=== PATIENT | female | born 1940 | race Caucasian/White ===

== ENCOUNTER → 2022-07-06 15:04 | Outpatient (CLI) | payer MEDICARE, SELFPAY ==
--- NOTE | ~2022-07-06 | US_ITS ---
US thyroid INDICATION: Thyroid nodules TECHNIQUE: Real-time sonographic images of the thyroid gland were obtained. COMPARISON: No prior studies for comparison. FINDINGS: The right thyroid lobe measures 4 x 1.8 x 1.6 cm. The left thyroid lobe measures 4.2 x 1.7 x 1.2 cm. There is normal echotexture and echogenicity throughout the thyroid gland. In the right lo be there is a 9 x 8 x 7 mm solid hypoechoic mass which is wider than tall, smoothly marginated with p unctate echogenic foci, TR 5. In the left lobe there is a 4 x 3 x 3 mm spongiform hypoechoic mass whi ch is wider than tall, smooth margins and no internal echogenic foci TR 2, likely benign. Normal vasc ular flow is present. IMPRESSION: 1. Right thyroid nodule measuring 9 mm maximum dimension, TR 5. This does not meet sonographic crite joey for biopsy. Follow-up ultrasound in 12 months recommended. Reviewed, dictated and finalized at location B. IMPRESSION: 1. Right thyroid nodule measuring 9 mm maximum dimension, TR 5. This does not meet sonographic criteria for biopsy. Follow-up ultrasound in 12 months recomme nded.
== END ==
PROVIDERS: PCP Family Medicine; Visit Provider Nurse Practitioner
DX: E04.1 Nontoxic single thyroid nodule (principal)
CPT/HCPCS: 76536

== ENCOUNTER 2025-02-24 22:08 | Emergency (ER) | payer MEDICARE, SELFPAY ==
--- NOTE | ~2025-02-24 | CT_ITS ---
CTA chest PE protocol Ordering provider: Sera Rivera History: 84 years Female with . L chest pain with RICARDO . Comparison: None. Technique: CT angiogram chest was performed following timed intravenous injection of contrast. Thin s lice axial images and reformatted coronal images were obtained. Three dimensional reformatted images of the chest were also obtained using a [employer] workstation. . Automated exposure control and iterati ve reconstruction technique were employed. The dose-length product was 150.53 mGy-cm. Findings: PULMONARY ARTERIES: No pulmonary embolus. VISUALIZED THORACIC INLET: Normal. MEDIASTINUM: Aorta/coronary arteries: Mild atheromatous disease. Heart/other: The heart is not enlarged. Lymph nodes: No mediastinal or hilar adenopathy. LUNGS: 3 marked seen in the right upper lobe suggestive of post infection changes. Atelectasis seen in the l eft upper lobe anteriorly. No pulmonary nodules or masses. No effusions. No pneumothorax. Underlying emphysematous changes. VISUALIZED UPPER ABDOMEN: Fat infiltration of the liver. Hypodensity in the left kidney most likely s mall cyst. Otherwise, the visualized upper abdomen is normal. MUSCULOSKELETAL: Soft tissues: The superficial soft tissues are normal. Bones: Age appropriate degenerative changes of the spine. Severe kyphosis. IMPRESSION: 1. No pulmonary embolism. 2. Tree-in-bud appearance with nodularity in the right upper lobe which may indicate focal pneumonia . Follow-up advised. 3. Emphysematous changes of the lungs. 0 Reviewed, dictated and finalized at location A. IMPRESSION: 1. No pulmonary embolism. 2. Tree-in-bud appearance with nodularity in the right upper lobe which may in dicate focal pneumonia. Follow-up advised. 3. Emphysematous changes of the lungs. 0
--- NOTE | ~2025-02-24 | XR_ITS ---
XR chest 1V Ordering provider: Sera Rivera MD History: 84 years Female with . CHEST PAIN HTN . Comparison: None. FINDINGS: MEDIASTINUM: The cardiac silhouette is not enlarged. LUNGS: No infiltrates, effusions or pneumothorax. Underlying emphysematous changes. OTHER: No free air under the diaphragm. Severe osteoarthritic changes of both shoulders. IMPRESSION: No acute cardiopulmonary pathology. Reviewed, dictated and finalized at location A.
--- OUTSIDE RECORDS SUMMARY | 2025-02-24 22:11 | XMS_ITS | Clinical Summary ---
Author Organization [facility] Address [address] [place] [address] Phone Care Team Providers Care [employer] Analyst Name Role Phone Unavailable Primary Care Provider Unavailabl e Allergies No known active allergies Medications metoprolol tartrate (LOPRESSOR) 25 mg tablet Take 25 mg by mouth 2 times daily. Active mirtazapine (REMERON) 7.5 mg tablet Take 1 Tablet (7.5 mg) by mouth daily at bedtime. 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 Encounters Date Type Department Care Team Description 02/21/2025 8:57 AM CDT - 02/21/2025 11:59 PM CDT Hospital Encounter [facility] - [facility] [address] [place] [address] Mine Aguirre ANP [place], Deborah, RN Discharge Disposition: Home or Self Care 02/19/2025 External Device Data STL ABSTRACTION Provider, Abstract 02/19/2025 External Device Data STL ABSTRACTION Provider, Abstract 02/05/2025 9:15 AM CDT Office Visit [facility] Trauma and General Surgery [address] [id number] Jose Alberto Minor DO Abdominal fistula (Primary Dx) 02/05/2025 External Device Data STL ABSTRACTION Provider, Abstract 01/29/2025 8:11 AM CDT - 01/29/2025 11:59 PM CDT Hospital Encounter [facility] - [address] [address] [place] [address] Mine Aguirre, Danyelle Villar, accessioner Disposition: Home or Self Care 01/15/2025 8:51 AM CDT - 01/15/2025 11:59 PM CDT Hospital Encounter [facility] - [facility] [address] [place] [address] Mine Aguirre, Heather Clement RN Pingel, Carolynn, RN Discharge Disposition: Home or Self Care 01/15/2025 External Device Data STL ABSTRACTION Provider, Abstract 01/15/2025 External Device Data STL ABSTRACTION Provider, Abstract 01/08/2025 External Device Data STL ABSTRACTION Provider, Abstract 12/27/2024 9:00 AM CDT Office Visit [facility] Trauma and General Surgery [address] [address] Jose Alberto Minor, Colocutaneous fistula (Primary Dx) 12/19/2024 External Device Data STL ABSTRACTION Provider, Abstract 12/18/2024 External Device Data STL ABSTRACTION Provider, Abstract 12/17/2024 External Device Data STL ABSTRACTION Provider, Abstract 12/15/2024 External Device Data STL ABSTRACTION Provider, Abstract 12/15/2024 External Device Data STL ABSTRACTION Provider, Abstract 12/12/2024 6:47 AM INTERNAL COMMUNICATIONS MANAGER - 12/15/2024 3:03 PM INTERNAL COMMUNICATIONS MANAGER Hospital Encounter [facility] Trauma and Surgery [address] [place] [address] Zulma Higuera MD Keech, Rachel C, DO Colocutaneous fistula Discharge Disposition: Home Health Care Svc from Last 3 Months Family History Medical History Relation Name Comments Cancer Father Alzheimer's Disease Mother Alzheimer's Disease Sister Relation Name Status Comments Father Mother Sister Social History Tobacco Use Types Packs/Day Years Used Date Smoking Tobacco: Never Smokeless Tobacco: Never Tobacco Cessation:Counseling Given: Not Answered Alcohol Use Standard Drinks/Week Comments Not Currently 0 (1 standard drink = 0.6 oz pur e alcohol) Feeling Safe Answer Date Recorded Are you in a relationship wi th someone who hurts you emotionally and/or physically? No 01/15/2025 Comments Unknown Sex and Gender Information Value Date Recorded Sex Assigned at Not on file Legal Sex Female 4:23 AM INTERNAL COMMUNICATIONS MANAGER Gender Identity Not on file Sexual Orientation Not on file Last Filed Vital Signs Vital Sign Reading Time Taken Comments Blood Pressure 137/71 02/21/2025 9:00 AM CDT Pulse 65 02/21/2025 9:00 AM CDT Temperature 36.4 C (97.5 F) 02/21/2025 9:00 AM CDT Respiratory Rate 18 02/21/2025 9:00 AM CDT Oxygen Saturation 94% 02/05/2025 8:52 AM CDT Inhaled Oxygen Concentration - - Weight 51.6 kg (113 lb 12.8 oz) 02/21/2025 9:00 AM CDT Height 149.9 cm (4' 11 ) 02/05/2025 8:52 AM CDT Body Mass Index 22.98 02/05/2025 8:52 AM CDT Plan of Treatment Upcoming Encounters Date Type Department Care Team (Late st Contact Info) Description 03/14/2025 2:15 PM CDT Appointment [facility] - [facility] [address] [place] [address] Mine Aguirre, JOLANTA [address] [place] [phone] Health Maintenance Due Date Last Done Comments DTAP/TDAP/TD VACCINES (1 - Tdap) 1958 ZOSTER VACCINE (1 of 2) 1989 OSTEOPOROSIS SCREENING 2004 PNEUMOCOCCAL VACCINE 50+ YEA RS (2 of 2 - PCV) 02/15/2013 02/16/2012 RSV VACCINE (60+ or ) (1 - 1-dose 75+ series) 2014 INFLUENZA VACCINE Completed 10/23/2024, 07/27/2022 Procedures Procedure Name Priority Date/Time Associated Diagnosis Comments PHOSPHORUS Routine 12/15/2024 4:33 AM INTERNAL COMMUNICATIONS MANAGER MAGNESIUM LEVEL Routine 12/15/2024 4:33 AM INTERNAL COMMUNICATIONS MANAGER BASIC METABOLIC PANEL Routine 12/15/2024 4:33 AM INTERNAL COMMUNICATIONS MANAGER CBC WITHOUT DIFFERENTIAL Routine 12/15/2024 4:33 AM INTERNAL COMMUNICATIONS MANAGER NM MYOCARD PERF IMAG SPECT MULT Routine 12/14/2024 3:09 PM INTERNAL COMMUNICATIONS MANAGER HM EJECTION FRACTION Routine 12/14/2024 3:09 PM INTERNAL COMMUNICATIONS MANAGER NM PHARMACOLOGICAL STRESS TEST Stat 12/14/2024 12:42 PM INTERNAL COMMUNICATIONS MANAGER PHOSPHORUS Routine 12/14/2024 6:55 AM INTERNAL COMMUNICATIONS MANAGER MAGNESIUM LEVEL Routine 12/14/2024 6:55 AM INTERNAL COMMUNICATIONS MANAGER BASIC METABOLIC PANEL Routine 12/14/2024 6:55 AM INTERNAL COMMUNICATIONS MANAGER CBC WITHOUT DIFFERENTIAL Routine 12/14/2024 6:55 AM INTERNAL COMMUNICATIONS MANAGER POC GLUCOSE Routine 12/14/2024 4:50 AM INTERNAL COMMUNICATIONS MANAGER PHOSPHORUS Routine 12/13/2024 5:33 AM INTERNAL COMMUNICATIONS MANAGER MAGNESIUM LEVEL Routine 12/13/2024 5:33 AM INTERNAL COMMUNICATIONS MANAGER BASIC METABOLIC PANEL Routine 12/13/2024 5:33 AM INTERNAL COMMUNICATIONS MANAGER CBC WITHOUT DIFFERENTIAL Routine 12/13/2024 5:33 AM INTERNAL COMMUNICATIONS MANAGER C. DIFFICILE DETECTION Routine 12:58 AM INTERNAL COMMUNICATIONS MANAGER URINALYSIS W/REFLEX MICROSCOPIC Stat 12/13/2024 12:56 AM INTERNAL COMMUNICATIONS MANAGER CALCIUM IONIZED Stat 12/12/2024 6:30 PM INTERNAL COMMUNICATIONS MANAGER CT ABDOMEN PELVIS W CONTRAST Stat 12/12/2024 9:40 AM INTERNAL COMMUNICATIONS MANAGER EXTRA TUBE (URINE CONTAINER) Stat 12/12/2024 7:52 AM INTERNAL COMMUNICATIONS MANAGER EXTRA TUBE Stat 12/12/2024 7:52 AM INTERNAL COMMUNICATIONS MANAGER VERIFICATION BLOOD GROUP Stat 12/12/2024 7:30 AM INTERNAL COMMUNICATIONS MANAGER Encounter for blood typing TYPE AND SCREEN Stat 12/12/2024 7:16 AM INTERNAL COMMUNICATIONS MANAGER C-REACTIVE PROTEIN Stat 12/12/2024 7: 16 AM INTERNAL COMMUNICATIONS MANAGER COMPREHENSIVE METABOLIC PANEL Stat 12/12/2024 7:16 AM INTERNAL COMMUNICATIONS MANAGER CBC WITH DIFFERENTIAL Stat 12/12/2024 7:16 AM INTERNAL COMMUNICATIONS MANAGER CRITICAL CARE Routine 12/12/2024 6:47 AM INTERNAL COMMUNICATIONS MANAGER from Last 3 Months Results * (ABNORMAL) CBC WITHOUT DIFFERENTIAL (12/15/2024 4:33 AM INTERNAL COMMUNICATIONS MANAGER) Only the most recent of3 resultswithin the time period is included. WBC 8.4 4.0 - 9.8 K/uL 12/15/2024 5:39 AM INTERNAL COMMUNICATIONS MANAGER [employer] [facility] RBC 3.78(L) 3.90 - 4.90 M/uL 12/15/2024 5:39 AM INTERNAL COMMUNICATIONS MANAGER [employer] [facility] HEMOGLOBIN 11.4(L) 11.8 - 14.8 g/dL 12/15/2024 5:39 AM INTERNAL COMMUNICATIONS MANAGER [employer] [facility] HEMATOCRIT 37.0 35.5 - 44.0 % 12/15/2024 5:39 AM INTERNAL COMMUNICATIONS MANAGER [employer] [facility] MCV 97.9 82.0 - 99.0 fL 12/15/2024 5:39 AM INTERNAL COMMUNICATIONS MANAGER [employer] [facility] MCH 30.2 27.2 - 32.6 pg 12/15/2024 5:39 AM INTERNAL COMMUNICATIONS MANAGER [facility] MCHC 30.8(L) 31.5 - 35.5 g/dL 12/15/2024 5:39 AM [facility] PLATELETS 267 140 - 350 K/uL 12/15/2024 5:39 AM [facility] MPV 10.5 9.3 - 12.4 fL 12/15/2024 5:39 AM [facility] RDW 13.3 11.5 - 14.5 % 12/15/2024 5:39 AM [facility] RDW-STDEV 48.3 37.1 - 48.7 fL 12/15/2024 5:39 AM [facility] Blood Venipuncture / Unknown 12/15/2024 4:33 AM INTERNAL COMMUNICATIONS MANAGER 12/15/2024 5:18 AM INTERNAL COMMUNICATIONS MANAGER Amie Miguel DO HEMATOLOGY ORDERABLES Final Re sult [facility] CLIA# [id number] [address] [place] [address] * PHOSPHORUS (12/15/2024 4:33 AM INTERNAL COMMUNICATIONS MANAGER) Only the most recent of3 resultswithin the time period is included. [facility] PHOSPHORUS 3.5 2.5 - 4.5 mg/dL 12/15/2024 6:07 AM [facility] Blood Venipuncture / Unknown 12/15/2024 4:33 AM INTERNAL COMMUNICATIONS MANAGER 12/15/2024 5:17 AM INTERNAL COMMUNICATIONS MANAGER Amie Miguel DO CHEMISTRY ORDERABLES Final Res ult [facility] CLIA# [id number] [address] [place] [address] * MAGNESIUM LEVEL (12/15/2024 4:33 AM INTERNAL COMMUNICATIONS MANAGER) Only the most recent of3 resultswithin the time period is included. MAGNESIUM 1.7 1.6 - 2.4 mg/dL 12/15/2024 6:07 AM [facility] [employer] [facility] Blood Venipuncture / Unknown 12/15/2024 4:33 AM INTERNAL COMMUNICATIONS MANAGER 12/15/2024 5:17 AM INTERNAL COMMUNICATIONS MANAGER Amie Miguel DO CHEMISTRY ORDERABLES Final Res ult [facility] [employer] [facility] CLIA# [id number] [address] [address] * (ABNORMAL) BASIC METABOLIC PANEL (12/15/2024 4:33 AM INTERNAL COMMUNICATIONS MANAGER) Only the most recent of3 resultswithin the time period is included. SODIUM 137 136 - 145 mmol/L 12/15/2024 6:07 AM [facility] [employer] [facility] POTASSIUM 4.5 3.5 - 5.0 mmol/L 12/15/2024 6:07 AM [facility] [employer] [facility] CHLORIDE 106 98 - 107 mmol/L 12/15/2024 6:07 AM [facility] [employer] [facility] CO2 23 22 - 29 mmol/L 12/15/2024 6:07 AM [facility] [employer] [facility] CALCIUM 8.9 8.6 - 10.2 mg/dL 12/15/2024 6:07 AM [facility] [employer] [facility] BUN 29(H) 8 - 23 mg/dL 12/15/2024 6:07 AM [facility] [employer] [facility] CREATININE 0.65 0.51 - 0.95 mg/dL 12/15/2024 6:07 AM [facility] [employer] [facility] Comment:The GFR result is no t clinically significant on patients <18 or >70 years of age. GLUCOSE 111(H) 74 - 99 mg/dL 12/15/2024 6:07 AM [facility] [employer] [facility] GFR >60 mL/min/1.7 3 sq meter 12/15/2024 6:07 AM [facility] [employer] [facility] Comment:eGFR calculated with 2020 CKD-EPI equation. Vegetarian diet, extremely high or low muscle mass, and may affect results. Cystatin C with Glomerular Filtration Rate is a suitable alternative for these patients. ANION GAP 8 8 - 16 mmol/L 12/15/2024 6:07 AM INTERNAL COMMUNICATIONS MANAGER [facility] Blood Venipuncture / Unknown 12/15/2024 4:33 AM INTERNAL COMMUNICATIONS MANAGER 12/15/2024 5:17 AM INTERNAL COMMUNICATIONS MANAGER us Amie Miguel DO CHEMISTRY ORDERABLES Final Res ult [facility] [employer] [facility] [id number] [address] [place] [address] * NM MYOCARD PERF IMAG SPECT MULT (12/14/2024 3:09 PM INTERNAL COMMUNICATIONS MANAGER) 12/14/2024 3:10 PM INTERNAL COMMUNICATIONS MANAGER Impressions INTERFACE SYSTEM - 12/14/2024 4:07 PM INTERNAL COMMUNICATIONS MANAGER IMPRESSION: 1) Stress EKG response was negative for ischemia. 2) The overall quality of the study is good. 3) The myocardial perfusion scan is normal 4) Left ventricular size is normal with normal left ventricular systolic function, and a calculated ejection fraction of greater than 70%. 5) No previous study was available for comparison. Recommendations: Clinical correlation is recommended. Narrative INTERFACE SYSTEM - 12/14/2024 4:07 PM INTERNAL COMMUNICATIONS MANAGER Procedure Type: One Day Myoview Regadenoson Pharmacologic Stress Test Date of Procedure: 12/14/2024 3:09 PM Clinical Indication: This 84 year old lady with a clinical history of hypertension is undergoing an evaluation for coronary artery disease via a pharmacologic stress test due to preoperative cardiovascular examination. Height: 5 feet 0 inches; Weight: 114 pounds Medications:Metoprolol Pharmacologic Stress Procedure: The patient performed a pharmacologic stress test using 0.4 mg regadenoson IVP over 10 seconds without low level exercise. The heart rate was 61 bpm at baseline and increased to 93 bpm. The blood pressure was 128/68 mmHg at baseline and 92/53 mmHg during infusion, demonstrating a normal response to regadenoson. The patient felt dizzy, short of breath during the procedure. EKG: The baseline electrocardiogram showed sinus rhythm. The stress electrocardiogram showed no ischemic changes. The electrocardiogram changes show a non-ischemic response to regadenoson. There were isolated PVCs throughout the study. Nuclear Imaging Protocol: Myocardial perfusion imaging was performed at rest approximately 30 minutes following the intravenous injection of 5.896 mCi TC99m Myoview. Immediately after regadenoson infusion, the patient was injected intravenously with 18.189 mCi TC99m Myoview. Gated post - stress tomographic imaging was performed approximately 60 minutes later in same manner. SPECT reconstruction was performed in the short, vertical long and horizontal axis views in both resting and gated image sets. Post-stress prone images were not also obtained in the short, vertical long, and horizontal axis views. Findings: The overall quality of the study is good. Rotating planar images reveal no motion artifact. The left ventricular size is normal. Post-stress SPECT myocardial perfusion images reveals normal perfusion in all regions. The rest images reveal no reversibility. Gated SPECT imaging demonstrates normal wall motion in all regions, and a calculated left ventricular ejection fraction estimated to be greater than 70%. Procedure Note Lupillo Whittington MD - 12/14/2024 Procedure Type: One Day Myoview Regadenoson Pharmacologic Stress Test Date of Procedure: 12/14/2024 3:09 PM Clinical Indication: This 84 year old lady with a clinical history of hypertension is undergoing an evaluation for coronary artery disease via a pharmacologic stress test due to preoperative cardiovascular examination. Height: 5 feet 0 inches; Weight: 114 pounds Medications:Metoprolol Pharmacologic Stress Procedure: The patient performed a pharmacologic stress test using 0.4 mg regadenoson IVP over 10 seconds without low level exercise. The heart rate was 61 bpm at baseline and increased to 93 bpm. The blood pressure was 128/68 mmHg at baseline and 92/53 mmHg during infusion, demonstrating a normal response to regadenoson. The patient felt dizzy, short of breath during the procedure. EKG: The baseline electrocardiogram showed sinus rhythm. The stress electrocardiogram showed no ischemic changes. The electrocardiogram changes show a non-ischemic response to regadenoson. There were isolated PVCs throughout the study. Nuclear Imaging Protocol: Myocardial perfusion imaging was performed at rest approximately 30 minutes following the intravenous injection of 5.896 mCi TC99m Myoview. Immediately after regadenoson infusion, the patient was injected intravenously with 18.189 mCi TC99m Myoview. Gated post - stress tomographic imaging was performed approximately 60 minutes later in same manner. SPECT reconstruction was performed in the short, vertical long and horizontal axis views in both resting and gated image sets. Post-stress prone images were not also obtained in the short, vertical long, and horizontal axis views. Findings: The overall quality of the study is good. Rotating planar images reveal no motion artifact. The left ventricular size is normal. Post-stress SPECT myocardial perfusion images reveals normal perfusion in all regions. The rest images reveal no reversibility. Gated SPECT imaging demonstrates normal wall motion in all regions, and a calculated left ventricular ejection fraction estimated to be greater than 70%. IMPRESSION: 1) Stress EKG response was negative for ischemia. 2) The overall quality of the study is good. 3) The myocardial perfusion scan is normal 4) Left ventricular size is normal with normal left ventricular systolic function, and a calculated ejection fraction of greater than 70%. 5) No previous study was available for comparison. Recommendations: Clinical correlation is recommended. [employer] ORDERABLES Final Result INTERFACE SYSTEM Refer to clinic/hospital department * HM EJECTION FRACTION (12/14/2024 3:09 PM INTERNAL COMMUNICATIONS MANAGER) [facility] EJECTION FRACTION >70 50 - 65 % Historical Provider HEALTH MAINTENANCE Final Res ult * NM PHARMACOLOGICAL STRESS TEST (12/14/2024 12:42 PM INTERNAL COMMUNICATIONS MANAGER) Narrative 12/14/2024 12:43 PM INTERNAL COMMUNICATIONS MANAGER Order information only. Exam was auto-finalized. [employer] ORDERABLES Final Result * (ABNORMAL) POC GLUCOSE (12/14/2024 4:50 AM INTERNAL COMMUNICATIONS MANAGER) Pathologist [facility] GLUCOSE POC 145(H) 74 - 99 mg/dL 12/14/2024 4:50 AM INTERNAL COMMUNICATIONS MANAGER [facility] SPECIMEN SOURCE, GLUCOSE POC Whole Blood 12/14/2024 4:50 AM INTERNAL COMMUNICATIONS MANAGER [facility] COMMENT, GLU POC Notified RN/MD 12/14/2024 4:50 AM [facility] [employer] [facility] Blood, whole 12/14/2024 4:50 AM INTERNAL COMMUNICATIONS MANAGER 12/14/2024 5:01 AM INTERNAL COMMUNICATIONS MANAGER Amie Miguel DO POINT OF CARE TESTING Final Re sult Performing Organization Address [facility]/ZIP Co de Phone Number [facility] [employer] [facility] CLIA# [id number] [address] [place] [address] * C. DIFFICILE DETECTION (12/13/2024 12:58 AM INTERNAL COMMUNICATIONS MANAGER) TOXIGENIC C DIFFICILE NOT DETECTED Not Detected 12/13/2024 4:53 AM [facility] [employer] [facility] Stool STOOL SPECIMEN / Unknown Collection / Unknown 12/13/2024 12:58 AM INTERNAL COMMUNICATIONS MANAGER 12/13/2024 1:09 AM INTERNAL COMMUNICATIONS MANAGER Narrative [facility] [employer] [facility] - 12/13/2024 4:53 AM INTERNAL COMMUNICATIONS MANAGER This assay is used to detect Toxigenic C. difficile target(B gene) DNA sequences in unformed stool specimens. If toxigenic C. difficile is not detected, but clinical suspicion is high please consult ID for consultation and potential repeat testing. This test should not be used as a test of cure. Amie Miguel DO MICROBIOLOGY - GENERAL ORDERAB LES Final Result Performing Organization Address City/[facility]/ZIP Co de Phone Number [facility] [employer] [facility] [id number] [address] [place] [address] * (ABNORMAL) URINALYSIS WITH REFLEX MICROSCOPIC (12/13/2024 12:56 AM INTERNAL COMMUNICATIONS MANAGER) COLOR UA Pale Yellow Pale to Dark Yellow 12/13/2024 6:39 AM [facility] [employer] [facility] CLARITY UA Clear Clear 12/13/2024 6:39 AM INTERNAL COMMUNICATIONS MANAGER [employer] [facility] SPECIFIC GRAVITY UA 1.014 1.003 - 1.035 12/13/2024 6:39 AM INTERNAL COMMUNICATIONS MANAGER [employer] [facility] PH UA 7.0 5.0 - 8.0 12/13/2024 6:39 AM [facility] LEUKOCYTE ESTERASE UA Trace(A) Negative 12/13/2024 6:39 AM [facility] NITRITE UA Negative Negative 12/13/2024 6:39 AM [facility] PROTEIN UA Negative Negative 12/13/2024 6:39 AM [facility] [place] GLUCOSE UA Negative Negative 12/13/2024 6:39 AM [facility] KETONES UA Negative Negative 12/13/2024 6:39 AM [facility] [employer] [facility] UROBILINOGEN UA Normal <2.0 mg/dL 6:39 AM [facility] [employer] [facility] BILIRUBIN UA Negative Negative 12/13/2024 6:39 AM [facility] BLOOD UA Negative Negative 12/13/2024 6:39 AM [facility] WBC UA 0-2 0 - 2 /hpf 12/13/2024 6:39 AM [facility] RBC UA 0-2 0 - 2 /hpf 12/13/2024 6:39 AM [facility] BACTERIA UA 1+(A) Negative /hpf 12/13/2024 6:39 AM [facility] [employer] [facility] EPITHELIAL CELLS, URINE 0-5 0 - 5 /hpf 12/13/2024 6:39 AM [facility] Urine URINE SPECIMEN OBTAINED BY CLEAN CATCH PROCEDURE / Unknown Collection / Unknown 12/13/2024 12:56 AM INTERNAL COMMUNICATIONS MANAGER 12/13/2024 1:10 AM INTERNAL COMMUNICATIONS MANAGER Amie Miguel DO URINE ORDERABLES Final Result [facility] [employer] [facility] CLIA# [id number] [address] [facility] [address] [address] * (ABNORMAL) CALCIUM IONIZED (12/12/2024 6:30 PM INTERNAL COMMUNICATIONS MANAGER) PH, VENOUS 7.42 7.32 - 7.43 12/12/2024 6:47 PM INTERNAL COMMUNICATIONS MANAGER [facility] CALCIUM IONIZED 4.1(L) 4.8 - 5.2 mg/dL 12/12/2024 6:47 PM INTERNAL COMMUNICATIONS MANAGER [facility] Blood Venipuncture / Unknown 12/12/2024 6:30 PM INTERNAL COMMUNICATIONS MANAGER 12/12/2024 6:44 PM INTERNAL COMMUNICATIONS MANAGER us Zulma Higuera MD CHEMISTRY ORDERABLES Final R [id number] [address] [place] [address] * CT ABDOMEN PELVIS W CONTRAST (12/12/2024 9:40 AM INTERNAL COMMUNICATIONS MANAGER) Anatomical Region Laterality Modality Abdomen Computed Tomogra y 12/12/2024 9:41 AM INTERNAL COMMUNICATIONS MANAGER Impressions 12/12/2024 10:31 AM INTERNAL COMMUNICATIONS MANAGER IMPRESSION: 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 Status post anterior abdominal wall hernia repair within the lower abdomen and pelvis. Stable intrahepatic and extrahepatic biliary dilatation likely related to residual changes from previous biliary disease. Colonic diverticulosis without evidence of diverticulitis. DICTATION LOCATION: Location 1 - [facility] Narrative 12/12/2024 10:31 AM INTERNAL COMMUNICATIONS MANAGER CT ABDOMEN AND PELVIS WITH IV CONTRAST INCLUDING MULTIPLANAR RECONSTRUCTIONS DATE: 12/12/2024 9:40 AM HISTORY: fistula. Encounter for blood typing; Abdominal fistula COMPARISON: 12/11/2024 PROCEDURE: Spiral volumetric acquisition of the abdomen and pelvis was performed with intravenous contrast. Gastrointestinal contrast was administered. Sagittal and coronal reconstructions were performed. The examination was performed with the adjustment of mA according to the patient size and/or the use of Iterative Reconstruction Technique. CONTRAST: IOPAMIDOL 61 % INTRAVENOUS SOLUTION (MULTI-DOSE BULK PACK) Given:70 mL FINDINGS: LOWER CHEST: Minimal dependent atelectasis. LIVER: Within normal limits GALLBLADDER: Cholecystectomy. BILE DUCTS: Intrahepatic and extrahepatic biliary dilatation with the common duct measuring up to 18 mm in diameter. This has not significantly changed. PANCREAS: No definite masses. Slight prominence of the pancreatic duct similar to previous exam of one day earlier. SPLEEN: Within normal limits. ADRENALS: Mild diffuse thickening without a definable nodule. KIDNEYS/URETERS: No hydronephrosis. Nonobstructing 3 mm left renal midpole calculus. 1.6 cm left renal simple cyst. An additional subcentimeter low-attenuation left renal lesion is noted too small to characterize. VASCULATURE: Extensive atherosclerotic vascular calcification. The abdominal aorta is normal in caliber. BOWEL: No bowel obstruction or wall thickening. The appendix is not confidently identified. Colonic diverticulosis without evidence of diverticulitis. Gastrointestinal contrast is noted to the level of the distal small bowel. No gastrointestinal contrast is present within the colon. PERITONEUM/RETROPERITONEUM: No pathologic lymphadenopathy or ascites. REPRODUCTIVE ORGANS: Hysterectomy. BLADDER: Partially decompressed. ABDOMINAL WALL: Findings consistent with previous hernia repair with multiple surgical clips most numerous in the lower pelvis. Within the anterior midline lower pelvis a loop of colon extends toward the skin surface with mild fecal material and gas. This is consistent with an colocutaneous fistula. No other evidence of fistula is seen on this exam. BONES: No suspicious focal osseous lesions. Mild to moderate degenerative change of the lumbar spine. A few millimeters of anterolisthesis is noted at the L4-5 level. Procedure Note Gracie Salmeron MD - 12/12/2024 CT ABDOMEN AND PELVIS WITH IV CONTRAST INCLUDING MULTIPLANAR RECONSTRUCTIONS DATE: 12/12/2024 9:40 AM HISTORY: fistula. Encounter for blood typing; Abdominal fistula COMPARISON: 12/11/2024 PROCEDURE: Spiral volumetric acquisition of the abdomen and pelvis was performed with intravenous contrast. Gastrointestinal contrast was administered. Sagittal and coronal reconstructions were performed. The examination was performed with the adjustment of mA according to the patient size and/or the use of Iterative Reconstruction Technique. CONTRAST: IOPAMIDOL 61 % INTRAVENOUS SOLUTION (MULTI-DOSE BULK PACK) Given:70 mL FINDINGS: LOWER CHEST: Minimal dependent atelectasis. LIVER: Within normal limits GALLBLADDER: Cholecystectomy. BILE DUCTS: Intrahepatic and extrahepatic biliary dilatation with the common duct measuring up to 18 mm in diameter. This has not significantly changed. PANCREAS: No definite masses. Slight prominence of the pancreatic duct similar to previous exam of one day earlier. SPLEEN: Within normal limits. ADRENALS: Mild diffuse thickening without a definable nodule. KIDNEYS/URETERS: No hydronephrosis. Nonobstructing 3 mm left renal midpole calculus. 1.6 cm left renal simple cyst. An additional subcentimeter low-attenuation left renal lesion is noted too small to characterize. VASCULATURE: Extensive atherosclerotic vascular calcification. The abdominal aorta is normal in caliber. BOWEL: No bowel obstruction or wall thickening. The appendix is not confidently identified. Colonic diverticulosis without evidence of diverticulitis. Gastrointestinal contrast is noted to the level of the distal small bowel. No gastrointestinal contrast is present within the colon. PERITONEUM/RETROPERITONEUM: No pathologic lymphadenopathy or ascites. REPRODUCTIVE ORGANS: Hysterectomy. BLADDER: Partially decompressed. ABDOMINAL WALL: Findings consistent with previous hernia repair with multiple surgical clips most numerous in the lower pelvis. Within the anterior midline lower pelvis a loop of colon extends toward the skin surface with mild fecal material and gas. This is consistent with an colocutaneous fistula. No other evidence of fistula is seen on this exam. BONES: No suspicious focal osseous lesions. Mild to moderate degenerative change of the lumbar spine. A few millimeters of anterolisthesis is noted at the L4-5 level. 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 Status post anterior abdominal wall hernia repair within the lower abdomen and pelvis. Stable intrahepatic and extrahepatic biliary dilatation likely related to residual changes from previous biliary disease. Colonic diverticulosis without evidence of diverticulitis. DICTATION LOCATION: Location 1 - [facility] us Zulma Higuera MD CT ORDERABLES Final Result * EXTRA TUBE (URINE CONTAINER) (12/12/2024 7:52 AM INTERNAL COMMUNICATIONS MANAGER) Urine URINE SPECIMEN OBTAINED BY CLEAN CATCH PROCEDURE / Unknown Collection / Unknown 12/12/2024 7:52 AM INTERNAL COMMUNICATIONS MANAGER 12/12/2024 7:55 AM INTERNAL COMMUNICATIONS MANAGER us Protocol [facility] Emergency URINE ORDERABLES Fin al Result [facility]# [id number] [address] [id number] * VERIFICATION BLOOD GROUP (12/12/2024 7:30 AM INTERNAL COMMUNICATIONS MANAGER) ABO GROUP O 12/12/2024 8:07 AM INTERNAL COMMUNICATIONS MANAGER [facility] RH (D) TYPE Positive 12/12/2024 8:07 AM INTERNAL COMMUNICATIONS MANAGER [facility] Blood Venipuncture / Unknown 12/12/2024 7:30 AM INTERNAL COMMUNICATIONS MANAGER 12/12/2024 7:33 AM INTERNAL COMMUNICATIONS MANAGER Audra Henry MD BLOOD BANK ORDERABLES Final Result Performing Organizat [id number]|2025-02-25 01:21:35|2025-02-25 01:21:35|PC.NURSE||||"ok to not give asa per edp montes"
--- OUTSIDE RECORDS SUMMARY | 2025-02-24 22:12 | XMS_ITS | CONTINUITY OF CARE DOCUMENT ---
Author Name daily ambrosio Address Unknown Organization [facility] Address [address] [place] [address] Phone [phone] Care Team Providers Care Stone Fabricator Name Role Phone Manuel WADSWORTH, Nabil Unavailable [phone] VIDAL WEEKS MD Unavailable VIDAL WEEKS MD Unavailable [phone] PROBLEMS Condition Status Date Provider Notes Family History of CVA or Stroke: active ? Burt Mathis MD Family History of Hypertension: active ? Pancho Mathis MD Chest pain active Villa Mathis MD Hypertension active Nabil Jackson MD Depression active Nabil Jackson MD ENCOUNTERS Date Type Provider Location Encounter Diag nosis - In-person encounter Office Visit Nabil Jackson MD [place] [facility] - In-person encounter Office Visit Nabil Jackson MD [place] [facility] HypertensionDepression - In-person encounter Office Visit Villa Mathis MD [place] [facility] Family History of CVA or Stroke:Family History of Hypertension:Chest pain VITAL SIGNS Date Observation Value Provider Body Mass Index (Ratio) 28.90 kg/m2 Julio Cesar Jackson MD blood pressure, diastolic 60 mm[Hg] Da fritz Krystle blood pressure, systolic 112 mm[Hg] Dac ia Krystle oxygen saturation, oximetry 95 % Jamila Krystle respiratory rate E&M 16 /min Jamila V oss pulse rate 71 /min Jamila Krystle weight E&M 158 [lb_av] Jamila Krystle height E&M 62 [in_i] Jamila Krystle Body Mass Index (Ratio) 28.35 kg/m2 Julio Cesar Jackson MD blood pressure, cuff size regular Ke rri Grueanne-marie blood pressure, diastolic 74 mm[Hg] Ke rri Gruenenfeldmally blood pressure, systolic 129 mm[Hg] Christiana ri Analilia oxygen saturation, oximetry 97 % Gay Analilia respiratory rate E&M 18 /min Gay Sadaf downing pulse rate 72 /min Gay Cordonno lder weight E&M 155 [lb_av] Gay Evgeny lder height E&M 62 [in_i] Gay Rakeshe er Body Mass Index (Ratio) 28.05 kg/m2 Pancho Mathis MD blood pressure, resting No Stephanie Linares blood pressure, diastolic 69 mm[Hg] Rod Linares blood pressure, systolic 110 mm[Hg] Hermelinda Linares oxygen saturation, oximetry 95 % Navneet Linares respiratory rate E&M 18 /min Rosina Linares pulse rate 65 /min Navneet gayle weight E&M 153.4 [lb_av] Navneet kelsey height E&M 62 [in_i] Navneet gayle ALLERGIES No Known Drug Allergies HISTORY OF MEDICATION USE Medication Status Instructions Dates Provider Indications Com ments TYLENOL 325 MG ORAL TABLET active as needed Navneet Linares BIOTIN CAPSULE active 10,000 mcg once daily Navneet Linares VITAMIN A ACETATE BEADS completed 8000 International Units once daily - 5 Jamila Krystle VITAMIN D3 2000 UNIT ORAL TABLET active ONE TAB BY MOUTH DAILY Navneet Vijay PRESERVISION AREDS ORAL TABLET active twice daily Navneet Linares FISH OIL 1200 MG ORAL CAPSULE active one tab twice daily Navneet Linares ESCITALOPRAM OXALATE 10 MG ORAL TABLET active once daily Navneet Vijay METOPROLOL SUCCINATE ER 50 MG ORAL TABLET EXTENDED RELEASE 24 HOUR active one tab. daily 8 Navneet Linares AMLODIPINE BESYLATE 10 MG ORAL TABLET active ONE TAB. DAILY Navneet Linares SOCIAL HISTORY Date Observation Value Provider social history reviewed E&M revi ewed - no changes required Nabil Jackson MD cigarette use yes Jamila Dalton smoking status Former smoker Jamila Dalton social history reviewed E&M revi ewed - no changes required Nabil Jackson MD number of grandchildren Nabil Jackson MD cigarette use yes Gay Grmarcellanf elder smoking status Former smoker Gay Cordonjovanyshe nfelder cigarette use yes Navneet kelsey smoking status Former smoker Navneet St arnoldo FAMILY HISTORY Family Member Condition Mother Family History of Hy pertension: Father Family History of CV A or Stroke: INSURANCE PROVIDERS Payer name Policy type / Coverage type Holden red green party ID [place] MED[place] Medicare [id number] [facility] [employer] [id number] ADVANCE DIRECTIVES Name Date DISCUSSED - NO DECISION MADE TREATMENT PLAN Date Name Performer Cardiology follow up :Blood pressure control is satisfactory. Continues on metoprolol succinate 50mg and amlodipine 10mg. Nabil Jackson MD Cardiology follow up :No recurrence. Stress test showed normal myocardial perfusion and echocardiogram showed normal LV size and systolic function with no significant valvular abnormalities. Nabil Jackson MD [facility] Follow up:Recently started on escitalopram with some improvement in symptoms. Nabil Jackson MD [facility] Follow up:Blood pressure control is satisfactory. Continues on metoprolol and amlodipine. Nabil Jackson MD [facility] Follow up:Initial admission for chest pain, thought to be atypical. She has a history of hypertension and had nonspecific ST and T wave changes. Will arrange for her to have stress test and echocardiogram. No recurrence of symptoms. Nabil Jackson MD Date Name STR - Adenosine Complete Echo HISTORY OF PROCEDURES Procedure Date Procedure Name Provider Procedure Notes S tatus EKG Nabil Jackson MD complet ed SNOMED-CT: [id number] Current Medications Documented Nabil Jackson MD completed Stress EKG Kyle haq MD completed Regadenoson, 4 units Nabil Jackson MD completed Cardiolite, 2 units Nabil Jackson MD completed SPECT Images Andrew Ellis MD com pleted EKG Naibl Jackson MD complet ed SNOMED-CT: [id number] Current Medications Documented Nabil Jackson MD completed EKG Villa Mathis MD complete d SNOMED-CT: [id number] Current Medications Documented Villa Mathis MD completed
--- OUTSIDE RECORDS SUMMARY | 2025-02-24 22:12 | XMS_ITS | Clinical Summary ---
Author Organization [facility] Address [facility] [place] [address] Care Team Providers Care Scene And Lighting Design Lecturer Name Role Phone Vonnie Lindsay MD Primary Care Provider [phone] Source Comments [facility],non-owned Affiliates and Associated Physician Practices is amultiple site organization consisting of ambulatory clinics and hospital sitesin [place], [place], [place] and [place]. This disclosure is being madepursuant to the Care Everywhere program and may not contain all information available regarding this patient. Last updated 18.[employer] [facility] Allergies No known active allergies Medications * Be aware that medications may not be up to date on this document. Alwaysverify current medications with the patient. 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 Encounter for screening for malignant neoplasm o f colon 10/16/2015 Malignant neoplasm of left female breast 015 History of left breast cancer Resolved Problems Problem Noted Date Diagnosed Date Resolved Date Acute sinusitis 10/16/2015 02/06/2018 Immunizations Immunization Administration Dates Next Due INFLUENZA VACCINE 07/19/2019 Family History Medical History Relation Name Comments Cancer - Skin, Melanoma Father Relation Name Status Comments Father Social History Tobacco Use Types Packs/Day Years Used Date Smoking Tobacco: Former Cigarettes Smokeless Tobacco: Never Alcohol Use Standard Drinks/Week Comments No 0 (1 standard drink = 0.6 oz pur e alcohol) Comments No Sex and Gender Information Value Date Recorded Sex Assigned at Not on file Legal Sex Female 5:24 PM RN SOCIAL WORK Gender Identity Not on file Sexual Orientation Not on file Last Filed Vital Signs Vital Sign Reading Time Taken Comments Blood Pressure 130/80 08/09/2019 10:29 AM CDT Pulse 63 08/09/2019 10:29 AM CDT Temperature 36.1 C (96.9 F) 08/09/2019 10:29 AM CDT Respiratory Rate 18 08/09/2019 10:29 AM CDT Oxygen Saturation 97% 08/09/2019 10:29 AM CDT Inhaled Oxygen Concentration - - Weight 71.2 kg (157 lb) 08/09/2019 10:29 AM CDT Height 154.9 cm (5' 1 ) 08/09/2019 10:29 AM CDT Body Mass Index 29.66 08/09/2019 10:29 AM CDT Plan of Treatment Health Maintenance Due Date Last Done Comments BONE DENSITY TESTING 1940 MEDICARE AWV 12 MONTHS 1940 DTAP/TDAP/TD VACCINES (1 - Tdap) 1958 PNEUMOCOCCAL VACCINE 50+ (1 of 1 - PCV) 1989 ZOSTER VACCINE (1 of 2) 1989 Respiratory Syncytial Virus (RSV) Vaccine Pt: or over 60 yrs (1 - 1-dose 75+ series) 2014 COVID-19 VACCINE (1 - 2023-2 5 season) 2024 DEPRESSION SCREENING 10/10/2024 INFLUENZA VACCINE (Season Ended) 2025 07/19/2019, 07/26/2017, 10/09/2013 HEPATITIS B VACCINE Aged Out No longe r eligible based on patient's age to complete this topic HIB VACCINE Aged Out No longer eligi ble based on patient's age to complete this topic HPV VACCINE Aged Out No longer eligi ble based on patient's age to complete this topic MENINGOCOCCAL (Group B) VACCINE SHARED DECISION-MAKING Aged Out No longer eligible based on patient's age to complete this topic MENINGOCOCCAL GROUPS A/C/Y/W VACCINE Aged Out No longer eligible b ased on patient's age to complete this topic Insurance MEDICARE [facility] MEDICARE [facility] Care Teams Scene And Lighting Design Lecturer Relationship Specialty Start Date End Date Vonnie Lindsay MD [address] [place] [phone] PCP - General 08/27/14
--- OUTSIDE RECORDS SUMMARY | 2025-02-24 22:12 | XMS_ITS | Data Portability ---
Author Organization PATRICIO Synedgen Gigi [facility], Main Office Address [address] [place] [address] Care Team Providers Care Metal Off Bearer Name Role Phone GCP [facility] FAX OTHER VIVIANE GAY Primary Care Provider [phone] Assessment Encounter Date Assessment Date Assessment LastModified by Organization Details LastModified Time 12/23/2024 12/23/2024 f/u labs 12/26 (BMP, CBC, TSH, free T4, Vitamin D and B12), check SLUMS [email or web address] Not available 12/25/2024 01:24:37 12/25/2024 12/25/2024 F/U labs on 12/26 (BMP, CBC, TSH, free T4, Vitamin D and B12). Not available 12/25/2024 14:39:39 12/28/2024 12/28/2024 F/U labs on 12/26 not done. Reordered for Mon (BMP, CBC, TSH, free T4, Vitamin D and B12). Not available 12/28/2024 12:12:56 01/08/2025 01/08/2025 Pt will discharge home with her daughter and [facility] on 01/09. Urine cx from 01/06 remains pending, mainly collected for new urinary incontinence. Not available 01/08/2025 15:23:08 Plan of Treatment Reminders Order Date Submit Date Provider Last Modified By Organization Details Last Modified Time Details Appointments None recorded. Lab None recorded. Referral None recorded. Procedures None recorded. Surgeries None recorded. Imaging None recorded. Medication Orders mirtazapine 7.5 mg tablet 2024 025 [facility], [address] [facility], [place], [address], 15:53:34 Patient TargetsNo targets recorded. Patient Instructions Encounter Date Encounter Id Patient Instructions Last Modified By Organization Details Last Modified Time 12/23/2024 [id number] I spent {{ 50#}} minutes providing care to the patient today. More than 50% of that time was spent in discussing the expected course of the disease, discussing prognosis, coordinating care and counseling of the patient/family. [email or web address] Not available 12/25/2024 01:59:28 12/25/[id number] I spent {{ 33#}} minutes providing care to the patient today. More than 50% of that time was spent in discussing the expected course of the disease, discussing prognosis, coordinating care and counseling of the patient/family. [email or web address] Not available 12/25/2024 14:42:07 12/28/[id number] I spent {{ 35#}} minutes providing care to the patient today. More than 50% of that time was spent in discussing the expected course of the disease, discussing prognosis, coordinating care and counseling of the patient/family. Not available 12/28/2024 12:13:08 01/01/2025 [id number] I spent {{ 33#}} minutes providing care to the patient today. More than 50% of that time was spent in discussing the expected course of the disease, discussing prognosis, coordinating care and counseling of the patient/family. Not available 01/01/2025 13:41:49 01/08/2025 [id number] I spent {{ 36#}} minutes providing care to the patient today. More than 50% of that time was spent in discussing the expected course of the disease, discussing prognosis, coordinating care and counseling of the patient/family. The patient will be discharged home with home health orders of home health RN / PT / OT to evaluate and treat. The patient is homebound because of {{gait instability poor balance fall risk* respiratory difficulties cogn itive impairment disori entation severe pain wounds}} and is unable to leave home safely because {{requires use of an assistive device and assistance of another person to leave home requires considerable and taxing effort to leave home* of cognitive impairment}}. The patient requires home health nursing for instruction, observation and assessment; PT for training to restore safe independent functional ambulation in community; and OT for training to improve ability to fulfill ADLs. Please follow-up with your primary care provider within 1 week. Call your primary care provider for instructions or go to the emergency room for new or worsening symptoms. Not available 01/08/2025 15:24:01 Reason for Referral None Reported. Procedures Surgical History Date Name Laterality Status Provider Name and Address Organization Details Recorded Time Appendectomy completed [facility] 12/23/2024 13:09:08 Cholecystectomy completed [facility] 12/23/2024 13:09:18 Hernia Repair completed [facility] 12/23/2024 13:09:27 Imaging Results None recorded. Procedure Notes None recorded. Medical Equipment None Reported. Allergies No known drug allergies Medications Name Sig Start Date Stop Date Status Note LastModified by Organization Details LastModified Time ondansetron 4 mg disintegrati ng tablet Place 1 tablet every 8 hours by translingua l route as needed. active Not Available Not Available No t Available metoprolol tartrate 25 mg tablet Take 1 tablet twice a day by oral route. active Not Available Not Available No t Available mirtazapine 7.5 mg tablet Take 1 tablet every day by oral route at bedtime. 2024 active Not Available Not Available Not Avai lable Vitals Date Recorded Body height Body mass index (BMI) Body weight Oxygen saturation Oxygen saturation in Arterial blood by Pulse oximetry Respiratory rate Body temperature Heart rate Systolic blood pressure Diastolic blood pressure Provider Name and Address Organization Details Last Updated DateTime 152.4 cm 23 kg/m2 97608.1 8 g 99 % 99 % 18 /min 97.9 [degF] 71 /min 139 mm[Hg] 69 mm[Hg] [place] [address] [place], [address] [facility] 00:51:08 Date Recorded Body height Heart rate Body temperature Respiratory rate Oxygen saturation Oxygen saturation in Arterial blood by Pulse oximetry Body mass index (BMI) Body weight Systolic blood pressure Diastolic blood pressure Provider Name and Address Organization Details Last Updated DateTime 152.4 cm 78 /min 97.7 [degF] 18 /min 99 % 99 % 23 kg/m2 16212.1 8 g 119 mm[Hg] 66 mm[Hg] [place] [address] [place], [address], [facility] 13:57:43 Date Recorded Body height Heart rate Body temperature Respiratory rate Body mass index (BMI) Body weight Oxygen saturation Oxygen saturation in Arterial blood by Pulse oximetry Systolic blood pressure Diastolic blood pressure Provider Name and Address Organization Details Last Updated DateTime 152.4 cm 68 /min 97.3 [degF] 18 /min 23.1 kg/m2 65036.6 2 g 97 % 97 % 109 mm[Hg] 67 mm[Hg] [place] [address] [place], [address], [facility] 12:01:57 Date Recorded Body height Heart rate Body temperature Respiratory rate Oxygen saturation Oxygen saturation in Arterial blood by Pulse oximetry Body mass index (BMI) Body weight Systolic blood pressure Diastolic blood pressure Provider Name and Address Organization Details Last Updated DateTime 5 152.4 cm 70 /min 97.8 [degF] 18 /min 95 % 95 % 23.9 kg/m2 09592.7 1 g 140 mm[Hg] 74 mm[Hg] [place] [address] [place], [address], [facility] 13:35:17 Date Recorded Body height Heart rate Body temperature Respiratory rate Oxygen saturation Oxygen saturation in Arterial blood by Pulse oximetry Body mass index (BMI) Body weight Systolic blood pressure Diastolic blood pressure Provider Name and Address Organization Details Last Updated DateTime 5 152.4 cm 70 /min 97.7 [degF] 20 /min 95 % 95 % 24.2 kg/m2 98861.4 5 g 149 mm[Hg] 75 mm[Hg] [place] [address] [place], [address], [facility] 15:15:27 Social History Question Answer Notes LastModified by Organizat ion Details LastModified Time Tobacco Smoking Status Never Smoker Miguel Philippe [facility], [facility] 12/23/2024 13:10:36 What Is Your Code Status? Full Code [email or web address] Information not available 12/20/2024 What Is Your Relationship Status? Information not available 12/23/2024 Sex: Unknown Functional Status Question Answer Note LastModified by Organizat ion Details LastModified Time Do you use any illicit or recreational drugs? No Information not available 12/23/2024 What is your level of alcohol consumption? None Information not available 12/23/2024 Mental Status None recorded. Family History Relationship Description Onset Age of this Age Resolved Age Notes LastModified by Organization Details LastModified Time Mother Alzheimer's disease Not available 2024 13:09:58 Sister Alzheimer's disease Not available 2024 13:09:58 Father Malignant neoplastic disease Not available 2024 13:10:13 Medical History Condition Response Osteoarthritis / DJD Y Cancer -- Breast Y Psychiatric -- Depression Y Hyperlipidemia Y Asthma Y Hypertension Y Gynecological HistoryNo gynecological history recorded. 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 The patient developed an abscess to this area back in September. Fecal drainage noted by general surgery at recent follow-up stephanie whitehead. She has been evaluated by General surgery at [facility] with plans to manage non operativel y for now. Plans are to improve her nutritiona l status with outpatient follow-up and considerat ion for surgery down the road.Gita nue ostomy bag for stool collection - patient and family will need continued education on wound care/bag changing.f /u with Dr. Minor as scheduled at [facility] Severe protein-calorie malnutrition (Jackson: less than 60 percent of standard weight) 810223649 E43 The patient was supported with PPN while at [facility] nue remeron, trend weightsRD to follow while here Essential hypertension 38010922 I10 continue metoprolol trend blood pressures and adjust meds as clinically indicated Major depr essive disorder 597177676 F32.9 continue low dose remeron - might consider titration of this depending upon her length of stay at Impaired cognition 79520 6002 R41.89 suspect the patient has undiagnose d dementiawi ll have ST follow and check SLUMScheck b12 and thyroid studies Nausea 469027180 R11.0 with some associated dizziness - continue prn zofran Physical deconditioning 9171471375 9102 R68.89 related to advanced age, recent hospitaliz ation, comorbidit iestherapi es have been initiated - the patient will return home with support from her family [id number] Isabela Weir [address] [address] 12/25/2024 09:31:41 01/03/2025 11:45:29 Colonic fistula 699076888 K63.2 Related to prior hernia repair with mesh placement many years ago. The patient developed an abscess to this area back in September 2024. Fecal drainage noted by general surgery at recent follow-up appointjaime whitehead. She has been evaluated by General Surgery at [facility] with plans to manage non-operat ively for now. Plans are to improve her nutritiona l status with outpatient follow-up and considerat ion for surgery down the road.Gita nue ostomy bag for stool collection . Patient and family will need continued education on wound care/bag changing.F /U with Dr. Minor as scheduled at [facility]. Severe protein-calorie malnutrition (Jackson: less than 60 percent of standard weight) 258327828 E43 The patient was supported with PPN while at [facility].Cont inue Remeron and trend weights.RD to follow while here. Essential hypertension 13980332 I10 Stable. Continue Metoprolol .Continue to trend blood pressures, monitor lytes and renal function, and adjust meds as clinically indicated. Major depr essive disorder 177539110 F32.9 Stable. Continue low dose Remeron.Mi ght consider titration of this depending upon her length of stay at . Impaired cognition 54108 6002 R41.89 Suspect the patient has undiagnose d dementia.S T is following. SLUMS 15/30, consistent with dementia.C hecking Vit B12 and Thyroid studies. Nausea 556881562 R11.0 with some associated dizziness. None reported today. Continue PRN Zofran. Physical deconditioning 6104258470 9102 R68.89 Related to advanced age, recent hospitaliz ation, comorbidit ies.Therap ies have been initiated - the patient will return home with support from her family. [id number] Isabela Weir DO [address] [place] [address] 12/28/2024 09:30:09 01/03/2025 11:46:07 Colonic fistula 058431131 K63.2 Related to prior hernia repair with mesh placement many years ago. The patient developed an abscess to this area back in September 2024. Fecal drainage noted by general surgery at recent follow-up stephanie whitehead. She has been evaluated by General Surgery at [facility] with plans to manage non-operat ively for now. Plans are to improve her nutritiona l status with outpatient follow-up and considerat ion for surgery down the road.Gita nue ostomy bag for stool collection . Patient and family will need continued education on wound care/bag changing.F /U with Dr. Minor as scheduled at [facility]. Severe protein-calorie malnutrition (Jackson: less than 60 percent of standard weight) 952530501 E43 The patient was supported with PPN while at [facility].Cont inue Remeron and trend weights.RD to follow while here. Essential hypertension 83992292 I10 Stable. Continue Metoprolol .Continue to trend blood pressures, monitor lytes and renal function, and adjust meds as clinically indicated. Major depr essive disorder 290941859 F32.9 Stable. Continue low dose Remeron.Mi ght consider titration of this depending upon her length of stay at . Impaired cognition 11843 6002 R41.89 Suspect the patient has undiagnose d dementia.S T is following. SLUMS 15/30, consistent with dementia.C hecking Vit B12 and Thyroid studies. Nausea 435742531 R11.0 with some associated dizziness. None reported today. Continue PRN Zofran. Physical deconditioning 5282346989 9102 R68.89 Related to advanced age, recent hospitaliz ation, comorbidit ies.Therap ies have been initiated - the patient will return home with support from her family. [id number] Isabela Weir DO [address] [address] [place] [address] 01/01/2025 09:55:19 01/03/2025 11:46:44 Colonic fistula 313473707 K63.2 Related to prior hernia repair with mesh placement many years ago. The patient developed an abscess to this area back in September 2024. Fecal drainage noted by general surgery at recent follow-up stephanie whitehead. She has been evaluated by General Surgery at [facility] with plans to manage non-operat ively for now. Plans are to improve her nutritiona l status with outpatient follow-up and considerat ion for surgery down the road.Gita nue ostomy bag for stool collection . Patient and family will need continued education on wound care/bag changing.F /U with Dr. Minor as scheduled at [facility]. Severe protein-calorie malnutrition (Jackson: less than 60 percent of standard weight) 798216671 E43 The patient was supported with PPN while at [facility].Cont inue Remeron and trend weights.RD to follow while here. Essential hypertension 90593802 I10 Stable. Continue Metoprolol .Continue to trend blood pressures, monitor lytes and renal function, and adjust meds as clinically indicated. Major depr essive disorder 019212804 F33.9 Stable. Continue low dose Remeron.Mi ght consider titration of this depending upon her length of stay at . Impaired cognition 29259 6002 R41.89 Suspect the patient has undiagnose d dementia.S T is following. SLUMS , consistent with dementia.V it B12 and Thyroid studies WNL. Nausea 293716181 R11.0 with some associated dizziness. None reported today. Continue PRN Zofran. Physical deconditioning 5068494750 9102 R68.89 Related to advanced age, recent hospitaliz ation, comorbidit ies.Contin ue therapies. Goal is for Cynthia to return home with support from her family. [id number] Isabela Weir DO [address] [address] [place] [address] 01/08/2025 09:55:20 01/21/2025 11:19:14 Colonic fistula 692673316 K63.2 Related to prior hernia repair with mesh placement many years ago. The patient developed an abscess to this area back in September 2024. Fecal drainage noted by general surgery at recent follow-up appointjaime whitehead. She has been evaluated by General Surgery at [facility] with plans to manage non-operat ively for now. Plans are to improve her nutritiona l status with outpatient follow-up and considerat ion for surgery down the road.Gita nue ostomy bag for stool collection . Patient and family will need continued education on wound care/bag changing.F /U with Dr. Minor as scheduled at [facility]. Essential hypertension 53115204 I10 Stable. Continue Metoprolol . Impaired cognition 07651 6002 R41.89 Suspect the patient has undiagnose d dementia.S T is following. SLUMS , consistent with dementia.V it B12 and Thyroid studies WNL. Severe protein-calorie malnutrition (Jackson: less than 60 percent of standard weight) 348407354 E43 The patient was supported with PPN while at [facility].Cont inue Remeron and trend weights.RD to follow while here. Major depr essive disorder 786439798 F33.9 Stable. Continue low dose Remeron.Mi ght consider titration of this depending upon her length of stay at . Nausea 908460241 R11.0 with some associated dizziness. None reported today. Continue PRN Zofran. Urinary incontinence 165 744918 R32 Urine cx from 01/06 remains pending, mainly collected for new urinary incontinen ce noted by pt's daughter.P t denies symptoms today. Health Concerns Section Related Observation LastModified by Organization Detai ls LastModified Time None Recorded Concern Status LastModified by Organization Details LastModified Time None Recorded Advance Directives Directive None Recorded Payers Encounter Date Sequence Insurance Name Policy Number Policy Car Covered Member ID Car Member ID Guarantor Name 12/23/2024 1 [place] Cynthia Sheriff [id number] Cynthia Sheriff 12/23/2024 2 [employer] OPTIONS (MEDICARE SUPPLEMENT) Cynthia Sheriff [id number] Cynthia Sheriff 12/25/2024 1 [place] Cynthia Sheriff [id number] Cynthia Sheriff 12/25/2024 2 [employer] OPTIONS (MEDICARE SUPPLEMENT) Cynthia Sheriff [id number] Cynthia Sheriff 12/28/2024 1 [place] Cynthia Sheriff [id number] Cynthia Sheriff 12/28/2024 2 [employer] OPTIONS (MEDICARE SUPPLEMENT) Cynthia Sheriff [id number] Cynthia Sheriff 01/01/2025 1 [place] Cynthia Sheriff [id number] Cynthia Sheriff 01/01/2025 2 [employer] OPTIONS (MEDICARE SUPPLEMENT) Cynthia Sheriff [id number] Cynthia Sheriff 01/08/2025 1 [place] Cynthia Sheriff [id number] Cynthia Sheriff 01/08/2025 2 [employer] OPTIONS (MEDICARE SUPPLEMENT) Cynthia Sheriff [id number] Cynthia Sheriff Notes Date Note Type Note Provider Name and Address Organization Details Recorded Time 12/23/2024 text/html 84 Y/O female wi th a PMH of HTN and depression admitted to [facility] for post acute rehab subsequent to an inpatient stay at [facility] 12/12-12/15/2024 related to an open wound to her lower abdomen. She initially presented to [facility] in [place] with request to transfer to [facility] for further surgical evaluation. 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 She had been following with Dr. Isai uDran at [facility] who treated her abdominal abscess back in September. He saw her in the office 12/11 and noted stool in the abdominal wound so sent her to the ER at [facility] for admission. She then was transferred to [facility]. Non surgical measures were recommended at this time for her fistula with plans to manage the fistula as an ostomy - she has a bag/drainage collection bag in place. The wound service followed the patient as did nutritional support services as it was also recommended that the patient improve her nutritional status in the event that surgical intervention is needed down the road. She was supported with PPN during her hospitalization and started on remeron related to a history of depression and poor appetite. She was reported to have a UTI upon admission to [facility] from [facility]. She completed a course of cipro related to this. Urine culture is not available. She was having episodes of dizziness prior to her recent hospitalization. She had been referred to cardiology related to this and was scheduled for outpatient echo and nuclear med stress testing. These tests were done while at [facility] with nuclear stress test negative for ischemia, LV systolic function was normal with EF 70%. She was discharged home with with her daughter, Abbie, who is a former employee of this facility. She had home health services arranged through [facility] but was requiring too much care so has been admitted to for skilled therapy. Discharge plan is back home with support from her family. New medications: Remeron and ZofranDose adjusted / discontinued meds = none The patient is up and ambulating around her room independently this am. She is pleasantly confused. Denies pain or new complaints or concerns. No nursing concerns. She is typically IND with mobility and ADLs - reports that she has a cane that she uses prn at home. She denies pain or urinary symptoms at present. Code status is fulldaughter Abbie is POAPCP BAG SEWER Viviane Mccollum/kaci with Surgery, Jose Alberto Minor [address] [place] [address] [place], [address], [facility] 12/25/2024 02:00:02 12/25/2024 text/html F/U colo-cutaneo us fistula related to prior hernia repair and recent abdominal abscess, UTI, dizziness, physical debility/deconditioni ng, and chronic medical conditions.---12/23/24 The patient is up and ambulating around her room independently this am. She is pleasantly confused. Denies pain or new complaints or concerns. No nursing concerns. She is typically IND with mobility and ADLs - reports that she has a cane that she uses prn at home. She denies pain or urinary symptoms at present.---12/25/24Eliudsarah jose guadalupe is noted to be moving independently about her room with a cane, putting things away she says. She is a poor historian, pleasant, denies pain or concerns. VSS. Staff [place] [address] [address] [facility], [place], [address], [facility] 12/25/2024 14:42:28 12/28/2024 text/html F/U colo-cutaneo us fistula related to prior hernia repair and recent abdominal abscess, UTI, dizziness, physical debility/deconditioni ng, and chronic medical conditions.---12/23/24 The patient is up and ambulating around her room independently this am. She is pleasantly confused. Denies pain or new complaints or concerns. No nursing concerns. She is typically IND with mobility and ADLs - reports that she has a cane that she uses prn at home. She denies pain or urinary symptoms at present.---12/25/24Luis shi is noted to be moving independently about her room with a cane, putting things away she says. She is a poor historian, pleasant, denies pain or concerns. VSS. Staff is without concerns today.---12/28/24Cynthia is a poor historian, making her bed in her room, not using an assistive device although she has both a quad-cane and regular cane in her room that are easily accessible. VSS. Staff [place] [address] [address], [place], [address], [facility] 12/28/2024 12:13:34 01/01/2025 text/html F/U colo-cutaneo us fistula related to prior hernia repair and recent abdominal abscess, UTI, dizziness, physical debility/deconditioni ng, and chronic medical conditions.---12/23/24 The patient is up and ambulating around her room independently this am. She is pleasantly confused. Denies pain or new complaints or concerns. No nursing concerns. She is typically IND with mobility and ADLs - reports that she has a cane that she uses prn at home. She denies pain or urinary symptoms at present.---12/25/24Luis shi is noted to be moving independently about her room with a cane, putting things away she says. She is a poor historian, pleasant, denies pain or concerns. VSS. Staff is without concerns today.---12/28/24Cynthia is a poor historian, making her bed in her room, not using an assistive device although she has both a quad-cane and regular cane in her room that are easily accessible. VSS. Staff is without concerns today.---01/01/25Cynthia is seated on the side of her bed, on her phone. She is a poor historian, without concerns or pain today, even when asked specifically regarding her abdomen. VSS. Staff is without concerns at present. Sheree Garza, [address] [address] [place], [id number], [facility] 01/01/2025 13:42:07 01/08/2025 text/html 84 Y/O female wi th a PMH of HTN and depression admitted to [facility] for post acute rehab subsequent to an inpatient stay at [facility] 12/12-12/15/2024 related to an open wound to her lower abdomen. She initially presented to [facility] in [place] with request to transfer to [facility] for further surgical evaluation. 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 She had been following with Dr. Isai Duran at [facility] who treated her abdominal abscess back in September. He saw her in the office 12/11 and noted stool in the abdominal wound so sent her to the ER at [facility] for admission. She then was transferred to [facility]. Non surgical measures were recommended at this time for her fistula with plans to manage the fistula as an ostomy - she has a bag/drainage collection bag in place. The wound service followed the patient as did nutritional support services as it was also recommended that the patient improve her nutritional status in the event that surgical intervention is needed down the road. She was supported with PPN during her hospitalization and started on remeron related to a history of depression and poor appetite. She was reported to have a UTI upon admission to [facility] from [facility]. She completed a course of cipro related to this. Urine culture is not available. She was having episodes of dizziness prior to her recent hospitalization. She had been referred to cardiology related to this and was scheduled for outpatient echo and nuclear med stress testing. These tests were done while at [facility] with nuclear stress test negative for ischemia, LV systolic function was normal with EF 70%. She was discharged home with with her daughter, Abbie, who is a former employee of this facility. She had home health services arranged through [facility] but was requiring too much care so has been admitted to for skilled therapy. Discharge plan is back home with support from her family. New medications: Remeron and ZofranDose adjusted / discontinued meds = none Code status is fulldaughter Abbie is POAPCP BAG SEWER Viviane Gay---12/23/24 patient is up and ambulating around her room independently this am. She is pleasantly confused. Denies pain or new complaints or concerns. No nursing concerns. She is typically IND with mobility and ADLs - reports that she has a cane that she uses prn at home. She denies pain or urinary symptoms at present.---12/25/24Wasarah jose guadalupe is noted to be moving independently about her room with a cane, putting things away she says. She is a poor historian, pleasant, denies pain or concerns. VSS. Staff is without concerns today.---12/28/24Eliudisadora is a poor historian, making her bed in her room, not using an assistive device although she has both a quad-cane and regular cane in her room that are easily accessible. VSS. Staff is without concerns today.---01/01/25Eliudndisadora is seated on the side of her bed, on her phone. She is a poor historian, without concerns or pain today, even when asked specifically regarding her abdomen. VSS. Staff is without concerns at present.---01/08/25Waherberth muir is seated in her room, doing a word search, is without concerns regarding her upcoming discharge home with her daughter and [facility]. VSS. Staff is without concerns today. Sheere Garza, [address] [address] [facility], [place], [address], [facility] 01/08/2025 15:53:32 OBGyn Episode No OBEpisode recorded.
--- OUTSIDE RECORDS SUMMARY | 2025-02-24 22:12 | XMS_ITS | Data Portability ---
Author Organization [place] [facility] [employer], Main Office Address [address] [place] [address] Care Team Providers Care Job Foreman Name Role Phone VIVIANE GAY Primary Care Provider VIVIANE GAY Referring Provider VIDAL LINDSAY Primary Care Provider Assessment Encounter Date Assessment Date Assessment LastModified by Organization Details LastModified Time 11/15/2024 11/15/2024 I have reconciled the patient's medications post their discharge from inpatient facility. Not available 11/15/2024 14:00:38 11/20/2024 11/20/2024 lower abdominal wound, granulating. We will DC wound VAC now and switch to moist to dry for the final healing. Follow-up 1 week Not available 11/20/2024 12:23:55 12/04/2024 12/04/2024 chronic lower abdominal wound. Improved however still having fair amount of brownish drainage. Wound culture. Small area with exposed mesh. May need trimming of the area if cultures are positive Not available 12/04/2024 11:30:16 12/11/2024 12/11/2024 chronic lower abdominal wound. Improved however still having fair amount of brownish drainage. Wound culture + for citrobacter, susceptible to cipro. Will rx 5d course today. Trimmed exposed mesh today. Concern for possible fistula, given malodor and purulent vs. feculent drainage at site of persistent wound. f/u two weeks, sooner if concerns. continue wet to dry dressings daily. CT abd/pelvis ordered to evaluate further for possible fistula. Not available 12/11/2024 11:54:23 Plan of Treatment Reminders Order Date Submit Date Provider Last Modified By Organization Details Last Modified Time Details Appointments Any 15 2024 10:30A M DINA Shane Not available Not available Not available Lab CBC w/ auto diff [address] (Lab), [address] [place], [address], 11/22/2024 08:20:18 CMP, serum or plasma [address] (Lab), [address] [place], [address], 11/22/2024 08:20:18 vitamin B12, serum [address] (Lab), [address] [place], [address], 11/22/2024 08:20:18 magnesium , blood [address] (Lab), [address] [place], [address], 11/22/2024 08:20:18 Referral None recorded. Procedures None recorded. Surgeries None recorded. Imaging None recorded. Medication Orders ciproflox acin 500 mg tablet 2024 025 [facility] [address], [address] [place] [address], [address], 12/11/2024 11:09:32 Patient TargetsNo targets recorded. Patient Instructions Encounter Date Encounter Id Patient Instructions Last Modified By Organization Details Last Modified Time 11/15/2024 [id number] Thank you for your visit to our office today. We would like to request that you reach out to your referring or previous provider and request that they send us a Summary of Care in electronic form, so that we may have it on file in your medical record. At your visit, we had the medical records we needed to provide you with the best possible care; however, for insurance purposes, an electronic Summary of Care is beneficial. Thank you for your assistance in obtaining this information and we look forward to providing continued care to you. Please review your medication list from the Summary of Care for this visit. If there are any differences from what you are currently taking at home, please call us to discuss. Not available 11/15/2024 14:00:38 Homebound Status : {{Patient has an inability to leave the home without a taxing effort and assistance from another person* Does not meet homebound status}} Required Home Health Services: {{none* half-way, physical therapy, occupational therapy half-way, physical therapy half-way}} Durable Medical Equipment needed: {{cane walker wal ker with seat manual wheelchair bedsid e commode oxygen*}} Billing Guidelines CPT code 98529- Transitional Care Management services with moderate medical decision complexity ([id number]-[id number] visit within 14 days of discharge). CPT code 32375- Transitional Care Management services with high medical decision complexity ([id number]-rh-fspq visit within 7 days of discharge). [email or web address] Not available 11/15/2024 14:26:45 Reason for Referral None Reported. Results Created Date Observation Date Name Description Value Unit Range Abnormal Flag Note LastModifiedBy Organization Detail LastModifiedTime 11/28/19 25 11/28/2024 URINA LYSIS COMPL ETE/I RIS W/RFX color YELLOW Not Available [facility] (Lab) [address] [place], [address], 11/28/2024 14:53:55 11/28/19 25 11/28/2024 URINA LYSIS COMPL ETE/I RIS W/RFX appear EXTRA TURBID abnormal Not Available [facility] (Lab) [address] [place], [address], 11/28/2024 14:53:55 11/28/19 25 11/28/2024 URINA LYSIS COMPL ETE/I RIS W/RFX specific gravity 1.016 1.001- 1.030 Not Available [facility] (Lab) [address] [place], [address], 11/28/2024 14:53:55 11/28/19 25 11/28/2024 URINA LYSIS COMPL ETE/I RIS W/RFX pH 8.0 pH_un its 5.0-9. 0 Not Available [facility] (Lab) [address] [place], [address], 11/28/2024 14:53:55 11/28/19 25 11/28/2024 URINA LYSIS COMPL ETE/I RIS W/RFX leukocytes >/=500 terry/u L negati ve- abnormal Not Available [facility] (Lab) [address] [place], [address], 11/28/2024 14:53:55 11/28/19 25 11/28/2024 URINA LYSIS COMPL ETE/I RIS W/RFX nitrite 2+ negati ve- abnormal Not Available [facility] (Lab) [address] [place], [address], 11/28/2024 14:53:55 11/28/19 25 11/28/2024 URINA LYSIS COMPL ETE/I RIS W/RFX protein 50 mg/dL negati ve- abnormal Not Available [facility] (Lab) [address] [place], [address], 11/28/2024 14:53:55 11/28/19 25 11/28/2024 URINA LYSIS COMPL ETE/I RIS W/RFX glucose NORMAL mg/dL normal - Not Available [facility] (Lab) [address] [place], [address], 11/28/2024 14:53:55 11/28/19 25 11/28/2024 URINA LYSIS COMPL ETE/I RIS W/RFX ketones NEGATI VE mg/dL negati ve- Not Available [facility] (Lab) [address] [place], [address], 11/28/2024 14:53:55 11/28/19 25 11/28/2024 URINA LYSIS COMPL ETE/I RIS W/RFX urobilinogen NORMAL mg/dL normal - Not Available [facility] (Lab) [address] [place], [address], 11/28/2024 14:53:55 11/28/19 25 11/28/2024 URINA LYSIS COMPL ETE/I RIS W/RFX bilirubin NEGATI VE mg/dL negati ve- Not Available [facility] (Lab) [address] [place], [address], 11/28/2024 14:53:55 11/28/19 25 11/28/2024 URINA LYSIS COMPL ETE/I RIS W/RFX blood 0.03 mg/dL negati ve- abnormal Not Available [facility] (Lab) [address] [place], [address], 11/28/2024 14:53:55 11/28/19 25 11/28/2024 URINA LYSIS COMPL ETE/I RIS W/RFX white blood cells PACKED /i??h pfi?? 0-8 abnormal Not Available [facility] (Lab) [address] [place], [address], 11/28/2024 14:53:55 11/28/19 25 11/28/2024 URINA LYSIS COMPL ETE/I RIS W/RFX white blood cell clumps OCCASI ONAL /i??h pfi?? none seen- abnormal Not Available [facility] (Lab) [address] [place], [address], 11/28/2024 14:53:55 11/28/19 25 11/28/2024 URINA LYSIS COMPL ETE/I RIS W/RFX red blood cells 5-10 /i??h pfi?? 0-4 abnormal Not Available [facility] (Lab) [address] [place], [address], 11/28/2024 14:53:55 11/28/19 25 11/28/2024 URINA LYSIS COMPL ETE/I RIS W/RFX bacteria NONE Not Available [facility] (Lab) [address] [place], [address], 11/28/2024 14:53:55 11/28/19 25 11/28/2024 URINA LYSIS COMPL ETE/I RIS W/RFX mucous OCCASI ONAL /i??l pfi?? abnormal Not Available [facility] (Lab) [address] [place], [address], 11/28/2024 14:53:55 11/28/19 25 11/28/2024 URINA LYSIS COMPL ETE/I RIS W/RFX squamous epithelial PACKED FIELD /i??l pfi?? abnormal Not Available [facility] (Lab) [address] [place], [address], 11/28/2024 14:53:55 11/28/19 25 11/28/2024 CULTU RE URINE urc ===== ===== ===== ===== ===== ===== ===== ===== ===== ===== ===== ===== ===== ===== ===== ===== ===== ===== ===== ===== ===== ===== ===== ===== Speci men NO.: [id number] Exam Statu s: Final Proce dure: CULTU RE URINE ===== ===== ===== ===== ===== ===== ===== ===== ===== ===== ===== ===== ===== ===== ===== ===== ===== ===== ===== ===== ===== ===== ===== ===== Iso/R esult : 01 Prote us mirab ilis Antim icrob ic/Do se YIFAN Syste yifan Urine __ ___ ___ Ampic illin >16 R R Aztre onam <=4 S S Cefot axime <=2 Cipro floxa kd <=0.2 5 S S Genta micin <=2 [place] [id number] Oxida se React ion N Extra Sensi tive Be NEG Amp/S ulbac reyna <=8/4 S S Ceftr iaxon e <=1 S S Cefta zidim e <=1 S S Cefaz bere 16 R R Cefep john <=2 S S Cefur oxime <=4 S S Levof loxac in <=0.5 S S Merop enem <=1 S S Pip/T azo <=8 S S Trime th/Bermeo lfa >2/38 R R Tetra cycli ne >8 R R Tobra mycin <=2 S S Nitro furan toin >64 R R Not Available [facility] (Lab) [address] [place] [address], [address], 11/30/2024 07:30:53 12/04/19 25 12/04/2024 CULTU RE WOUND /TISS UE+GR .STAI N wndtssc ===== ===== ===== ===== ===== ===== ===== ===== ===== ===== ===== ===== ===== ===== ===== ===== ===== ===== ===== ===== ===== ===== ===== ===== Speci men NO.: [id number] Exam Statu s: Final Proce dure: CULTU RE WOUND /TISS UE+GR .STAI N ===== ===== ===== ===== ===== ===== ===== ===== ===== ===== ===== ===== ===== ===== ===== ===== ===== ===== ===== ===== ===== ===== ===== ===== Iso/R esult : 01 Citro bacte r farme ri Iso/R esult : 02 Citro bacte r murli niae Antim icrob ic/Do se YIFAN Syste yifan Urine Antim icrob ic/Do se YIFAN Syste yifan Urine __ ___ ___ __ ___ ___ Ampic illin >16 R Ampic illin 16 R* Aztre onam <= 4 S Aztre onam <=4 S Cefot axime <=2 Cefot axime <=2 Cipro floxa kd <=0.2 5 S Cipro floxa kd <=0.2 5 S Genta micin <=2 S Genta micin <=2 [place] [id number] Amp/S ulbac reyna <=8/4 S Oxida se React ion N Ceftr iaxon e <=1 S Amp/S ulbac reyna <=8/4 R* Cefta zidim e <=1 S Ceftr iaxon e <=1 S Cefaz bere 8 R Cefta zidim e <=1 S Cefep john <=2 S Cefaz bere >16 R Cefur oxime <=4 S Cefep john <=2 S Levof loxac in <=0.5 S Cefur oxime 8 R* Merop enem <=1 S Levof loxac in <=0.5 S Pip/T azo <=8 S Merop enem <=1 S Trime th/Bermeo lfa >2/38 R Pip/T azo <=8 S Tetra cycli ne >8 R Trime th/Bermeo lfa <=2/3 8 S Tobra mycin <=2 S Tetra cycli ne <=4 S Tobra mycin <=2 S ===== ===== ===== ===== ===== ===== ===== ===== ===== ===== ===== ===== ===== ===== ===== ===== ===== ===== ===== ===== ===== ===== ===== ===== Speci men NO.: [id number] Exam Statu s: Final Proce dure: CULTU RE WOUND /TISS UE+GR .STAI N ===== ===== ===== ===== ===== ===== ===== ===== ===== ===== ===== ===== ===== ===== ===== ===== ===== ===== ===== ===== ===== ===== ===== ===== Iso/R esult : 03 Enter obact er cloac ae Antim icrob ic/Do se YIFAN Syste yifan Urine __ ___ ___ Ampic illin >16 R Aztre onam <=4 S Cefot axime <=2 Cipro floxa kd <=0.2 5 S Genta micin <=2 [place] 84559 42566 Oxida se React ion N Amp/S ulbac ryena 16/8 R* Ceftr iaxon e >2 R Cefta zidim e 4 S Cefaz bere >16 R Cefep john <=2 S Cefur oxime 16 R* Levof loxac in <=0.5 S Merop enem <=1 S Pip/T azo 16 I Trime th/Bermeo lfa <=2/3 8 S Tetra cycli ne <=4 S Tobra mycin <=2 S Not Available [facility] (Lab) [address] [place], [address], 12/11/2024 07:28:45 11/09/19 25 11/09/2024 imagi ng/di agnos tic resul t No observ ation record ed. [facility] [address] [place], [address], 11/09/2024 13:31:38 11/09/19 25 11/09/2024 imagi ng/di agnos tic resul t No observ ation record ed. [facility] [address] [place], [address], 11/09/2024 16:04:21 12/13/19 25 12/11/2024 imagi ng/di agnos tic resul t No observ ation record ed. [facility] [address] [place], [address], 12/12/2024 01:20:18 Result Notes None recorded. Problems Name Problem SNOMED Code Status Onset Date Resolution Date Notes Provider Name and Address Organization Details Recorded Time Pain in lower limb 77516900 Active Not Available [facility] 3 06:14:20 Urinary incontinen ce 760838114 Active Not Available [facility] 3 06:14:20 Edema 235755822 Active Not Available [facility] 3 06:14:20 Thoracic back pain 356444513 Active Not Available [facility] 3 06:14:20 Thyroid function tests abnormal 881630959 Active 2021 Not Available [facility] 3 06:14:20 Osteopenia 623432547 Active Not Available [facility] 3 06:14:20 Goiter 4867326 Active 08/22/ 2022 Not Available [facility] 3 06:14:20 Osteoarthr itis 395706392 Active Not Available [facility] 3 06:14:20 Dysphagia 51320777 Active Not Available [facility] 3 06:14:20 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 Active Not Available [facility] 3 06:14:20 Disorder of rotator cuff 192870258 Active Left Not Available [facility] 3 06:14:20 Essential hypertensi on 85402761 Active Not Available [facility] 3 06:14:20 Urgent desire to urinate 56611565 Active Not Available [facility] 3 06:14:20 Breast lump 82648387 Active Not Available [facility] 3 06:14:20 Cough 73283721 Active 2022 Vidal Lindsay MD [address], [address], [place], [address] , [employer] 3 17:31:19 Decreased hearing 575103928 Active 2022 DINA Weaver [address], [address], [place], [address] , [employer] 3 15:55:40 Persistent cough 665438236 Active 2022 DINA Weaver [address], [address], [place], [address] , [employer] [facility] 3 15:56:09 Forgetful 81588293 Active 2022 DINA Weaver [address], [address], [place], [address] , [employer] [facility] 3 15:57:12 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 506876946 Active 2022 DINA Weaver [address], [address], [place], [address] , [employer] [facility] 3 16:36:06 Fatigue 59735750 Active 2023 DINA Shane [address], [address], [place], [address] , [place] [facility] 4 14:28:55 Depressive disorder 86900565 Active 2023 DINA Shane [address], [address], [place], [address] , [place] [facility] 4 14:36:36 Memory impairment 389336699 Active 2023 DINA Shane [address], [address], [place], [address] , [place] [facility] 4 15:01:11 Bilateral tinnitus 2391784308855 Active 2023 DINA Shane [address], [address], [place], [address] , [place] [facility] 4 15:06:36 Open wound of anterior abdominal wall 347336129 Active 2023 Isai hyde MD [address], [address], [place], [address] , [place] [facility] 4 14:32:47 Intermitte nt confusion 551882452 Active 2024 DINA Shane [address], [address], [place], [address] , [place] [facility] 5 11:37:47 Electrolyt e imbalance 364729633 Active 2024 DINA Shane [address], [address], [place], [address] , [place] [facility] 5 14:19:22 Idiopathic peripheral neuropathy 87275969 Active 2024 DINA Shane [address], [address], [place], [address] , [place] [facility] 5 14:20:16 Acute urinary tract infection 897675355 Active 2024 DINA Shane [address], [place], [address] , [place] [facility] 17:02:46 Skin lesion 75176842 Active 2024 Isai hyde MD [address], [address], [place], [address] , [place] [facility] 11:03:45 Decline in functional status 7521693584010 06 Active 2024 DINA Shane [address], [address], [place], [address] , [place] [facility] [employer] 15:53:57 Notes:Some problems listed i n Documents: #[id number], #[id number] could not be added to this patient's chart. Please review these documents and add these problems to the patient's chart manually as needed. Problem Notes None recorded. Procedures Surgical History Date Name Laterality Status Provider Name and Address Organization Details Recorded Time 12/12/19 25 Blank Procedure completed Isai smith MD [address], [address], [place], [address], [place] [facility] [employer] 12/11/2024 11:51:20 11/15/19 25 Transitional_Care_ Management completed DINA Shane [address], [address], [place], [address], [place] [facility] [employer] 11/15/2024 14:25:35 10/23/19 25 Medicare Wellness CPT Code, subsequent completed DINA Shane [address], [address], [place], [address], [place] [facility] 10/23/2024 11:48:34 09/24/20 24 excision completed Frida Parikh MA [place] [facility] [employer] 09/26/2024 15:14:00 07/17/20 24 Blank Procedure Note completed MD [address], [place], [address], [place] [facility] 07/17/2024 13:40:41 Cholecystectomy completed Not Available [facility] 12/08/2022 06:10:39 Hernia Repair completed Not Available [facility] 12/08/2022 06:10:39 Imaging Results Imaging Date Name Status LastModified by Organiz ation Details LastModified Time 11/09/2024 imaging/diagn ostic result active [facility] [address] [place], [address], 11/09/2024 13:31:38 11/09/2024 imaging/diagn ostic result active [facility] [address] [place], [address], 11/09/2024 16:04:21 12/11/2024 imaging/diagn ostic result active [facility] [address] [place], [address], 12/12/2024 01:20:18 Procedure Notes None recorded. Medical Equipment None Reported. Allergies No known drug allergies Medications Name Sig Start Date Stop Date Status Note LastModified by Organization Details LastModified Time doxycyclin e hyclate 100 mg capsule Take 1 capsule twice a day by oral route for 10 days. 04/03 completed Not Available Not Available Not Available ketoconazo le 2 % shampoo 04/03 completed Not Available Not Available Not Available azithromyc in 250 mg tablet 04/20 completed Not Available Not Available Not Available metoprolol succinate ER 50 mg tablet,ext ended release 24 hr TAKE ONE TABLET BY MOUTH ONCE DAILY 10/23 completed Not Available Not Available Not Available hydrocodon e 5 mg-acetami nophen 325 mg tablet 03/12 completed Not Available Not Available Not Available lisinopril 20 mg tablet 11/23 completed Not Available Not Available Not Available ondansetro n HCl 4 mg tablet 03/12 completed Not Available Not Available Not Available prednisone 20 mg tablet Take 2 tablets every day by oral route for 5 days. 04/03 completed Not Available Not Available Not Available ciprofloxa kd 250 mg tablet TAKE 1 TABLET BY MOUTH EVERY 12 HOURS DIRECTED FOR 3 DAYS active Not Available Not Available No t Available prochlorpe razine maleate 10 mg tablet 03/12 completed Not Available Not Available Not Available ciprofloxa kd 500 mg tablet TAKE 1 TABLET BY MOUTH EVERY 12 HOURS FOR 5 DAYS active Not Available Not Available No t Available sulfametho xazole 800 mg-trimeth oprim 160 mg tablet TAKE 1 TABLET BY MOUTH EVERY 12 HOURS FOR 10 DAYS 04/03 completed Not Available Not Available Not Available omeprazole 40 mg capsule,de layed release active Not Available Not Available Not Available triamcinol one acetonide 0.1 % topical cream APPLY A THIN LAYER TO THE AFFECTED AREA(S) BY TOPICAL ROUTE 2 TIMES PER DAY as needed active Not Available Not Available No t Available spironolac tone 25 mg tablet active Not Available Not Available Not Available oxycodone- acetaminop hen 5 mg-325 mg tablet 10/23 completed Not Available Not Available Not Available famotidine 20 mg tablet TAKE 1 TABLET BY MOUTH TWICE DAILY FOR 30 DAYS 04/03 completed Not Available Not Available Not Available magnesium oxide 400 mg (241.3 mg magnesium) tablet TAKE 1 TABLET BY MOUTH TWICE A DAY active Not Available Not Available No t Available meclizine 25 mg tablet 03/12 completed Not Available Not Available Not Available amlodipine 10 mg tablet TAKE 1 TABLET BY MOUTH ONCE DAILY 11/15 completed Not Available Not Available Not Available nystatin 100,000 unit/gram topical cream APPLY TO THE AFFECTED AREA(S) BY TOPICAL ROUTE 2 TIMES PER DAY active Not Available Not Available No t Available dexamethas one 4 mg tablet 03/12 completed Not Available Not Available Not Available fluoxetine 10 mg capsule TAKE 1 CAPSULE BY MOUTH ONCE DAILY DIRECTED FOR 90 DAYS 10/23 completed Not Available Not Available Not Available Xylocaine with Epinephrin e 1 %-1:100,00 0 injection solution 1 ml subq x 1 active Not Available Not Available No t Available hydrocorti sone 2.5 % topical cream APPLY CREAM TO AFFECTED AREA TWICE DAILY NEEDED 04/03 completed Not Available Not Available Not Available mupirocin 2 % topical ointment APPLY SMALL AMOUNT TO AFFECTED AREA THREE TIMES DAILY 04/03 completed Not Available Not Available Not Available gabapentin 100 mg capsule Take 1 capsule every day by oral route. 03/12 completed Not Available Not Available Not Available methylpred nisolone 4 mg tablets in a dose pack TAKE DIRECTED 10/23 completed Not Available Not Available Not Available clobetasol 0.05 % scalp solution MASSAGE INTO SCALP TWICE DAILY WHEN FLARED (USE NEEDED) 04/03 completed Not Available Not Available Not Available ondansetro n 4 mg disintegra ting tablet active Not Available Not Available Not Available cefdinir 300 mg capsule TAKE 1 CAPSULE BY MOUTH TWICE DAILY 10/23 completed Not Available Not Available Not Available escitalopr am 10 mg tablet Take 1 tablet every day by oral route. 05/01 completed 1/2 tab daily Not Available Not Available Not Available escitalopr am 5 mg tablet Take 1 tablet every day by oral route. active Not Available Not Available No t Available metoprolol tartrate 25 mg tablet TAKE 1 TABLET TWICE DAILY BY MOUTH active Not Available Not Available No t Available mirtazapin e 7.5 mg tablet active Not Available Not Available Not Available Imodium 1 daily active Not Available Not Avai lable Not Available Fish Oil 1,000 mg capsule Take 1 capsule twice a day by oral route. 05/19 completed Not Available Not Available Not Available Prevnar 13 (PF) 0.5 mL intramuscu lar syringe PHARMACIS T ADMINISTE RED IMMUNIZAT ION ADMINISTE RED AT TIME OF DISPENSIN G 04/03 completed Not Available Not Available Not Available Fluvirin 0574-3973 45 mcg (15 mcg x 3)/0.5 mL intramuscu lar suspension 04/03 completed Not Available Not Available Not Available Fluvirin 9726-9599 45 mcg (15 mcg x 3)/0.5 mL intramuscu lar suspension 04/03 completed Not Available Not Available Not Available Fluzone High-Dose 2014- (PF) 180 mcg/0.5 mL intramuscu lar syringe 09/07 completed Not Available Not Available Not Available Fluzone High-Dose 7679-4274 (PF) 180 mcg/0.5 mL intramuscu lar syringe 04/03 completed Not Available Not Available Not Available Shingrix (PF) 50 mcg/0.5 mL intramuscu lar suspension , kit 04/03 completed Not Available Not Available Not Available Fluzone High-Dose (PF) 180 mcg/0.5 mL intramuscu lar syringe PHARMACIS T ADMINISTE RED IMMUNIZAT ION ADMINISTE RED AT TIME OF DISPENSIN G 04/03 completed Not Available Not Available Not Available Paxlovid 300 mg (150 mg x 2)-100 mg tablets in a dose pack TK 2 NIRMATREL VIR TS AND 1 RITONAVIR T TOGETHER PO BID FOR 5 DAYS 04/03 completed Not Available Not Available Not Available Vitals Date Recorded Body height Body mass index (BMI) Body weight Body temperature Heart rate Respiratory rate Oxygen saturation Oxygen saturation in Arterial blood by Pulse oximetry Systolic blood pressure Diastolic blood pressure Provider Name and Address Organization Details Last Updated DateTime 5 154.94 cm 21.6 kg/m2 28109.6 3 g 97.1 [degF] 66 /min 20 /min 98 % 98 % 110 mm[Hg] 80 mm[Hg] Merna Gallagher RN [facility] 5 14:08:37 Date Recorded Body height Body mass index (BMI) Body weight Body temperature Heart rate Respiratory rate Oxygen saturation Oxygen saturation in Arterial blood by Pulse oximetry Systolic blood pressure Diastolic blood pressure Provider Name and Address Organization Details Last Updated DateTime 5 154.94 cm 21.5 kg/m2 47895.5 3 g 97.8 [degF] 70 /min 16 /min 98 % 98 % 110 mm[Hg] 80 mm[Hg] Deb Ordoñez [facility] [facility] 5 10:31:55 Date Recorded Body height Body mass index (BMI) Body weight Body temperature Heart rate Respiratory rate Oxygen saturation Oxygen saturation in Arterial blood by Pulse oximetry Systolic blood pressure Diastolic blood pressure Provider Name and Address Organization Details Last Updated DateTime 5 154.94 cm 21.5 kg/m2 69622.5 3 g 97.8 [degF] 70 /min 16 /min 98 % 98 % 110 mm[Hg] 80 mm[Hg] Deb Ordoñez [facility] 5 11:15:58 Date Recorded Body height Body mass index (BMI) Body weight Heart rate Oxygen saturation Oxygen saturation in Arterial blood by Pulse oximetry Systolic blood pressure Diastolic blood pressure Provider Name and Address Organization Details Last Updated DateTime 154.94 cm 21.5 kg/m2 86452.5 3 g 72 /min 99 % 99 % 112 mm[Hg] 82 mm[Hg] FABIO Sauceda [place] [employer] [facility] 10:51:39 Social History Question Answer Notes LastModified by Organization Details LastModified Time Tobacco Smoking Status Former Smoker Not Available [employer] 12/08/2022 06:10:30 Are You Blind Or Do You Have Difficulty Seeing? Yes Wears Glasses Information not available 04/03/2024 What Is Your Level Of Caffeine Consumption? Occasional [id number] Information not available 12/08/2022 In The 14 Days Before Symptom Onset, Have You Had Close Contact With A Laboratory-conf irmed COVID-19 While That Case Was Ill? No Information not available 04/03/2024 In The 14 Days Before Symptom Onset, Have You Had Close Contact With A Person Who Is Under Investigation For COVID-19 While That Person Was Ill? No Information not available 04/03/2024 Are You Deaf Or Do You Have Serious Difficulty Hearing? Yes Information not available 04/03/2024 What Type Of Diet Are You Following? REGULAR [id number] Information not available 12/08/2022 Have There Been Any Changes To Your Family Or Social Situation? Yes Wound Vac To [place] Information not available 10/23/2024 When Did You Quit Smoking? 16+yearssincelastc igarette 30 + Years Ago [id number] Information not available 12/08/2022 Do You Use Insect Repellent Routinely? No Information not available 04/03/2024 Where Do You Live? SingleLevelHouse Lives With Daughter [id number]|2025-02-24 22:12:00|2025-02-24 18:10:00|XMS_ITS|CASSIE ROMERO|External Medical Summaries|[id number]|" Summary of Patient Chart Created on: February 24, 2025 Cynthia Sheriff : 1940 Sex: Female Author Name Auto Generated, Auto Generated Organization [facility] Address [address] [place] [address] Phone [phone] Care Team Providers Care Job Foreman Name Role Phone Sheree Garza Unavailable Isabela Fair Unavailable [phone] Functional Status Mental Status Allergies and Intolerances Encounters Immunizations Medications Problems Vital Signs Reason for Referral "
[2025-02-24 22:30] VITALS: BP 108/58; PULSE 65; RESP 14; TEMP 36.4; O2SAT 100
--- NOTE | 2025-02-24 22:36 | ECG_ITS ---
Test Date: 2025-02-24 22:40:27 Measurements Intervals [place] Rate: 62 P: 66 AR: 135 QRS: 81 QRSD: 103 T: 49 QT: 394 QTc: 403 Interpretive Statements SINUS RHYTHM No previous ECG available for comparison Electronically Signed On 02-25-2025 10:46:03 CDT by Todd Tripp M.D.
[2025-02-24 22:48] LABS: Basophils Absolute Auto 0.1 K/mm3 (0.0-0.1); Basophils Percent Auto 1.3 % (0.2-1.2); Eosinophils Absolute Auto 0.2 K/mm3 (0-0.3); Eosinophils Percent Auto 2.5 % (0-4.4); Hematocrit 38.2 % (37.0-47.0); Hemoglobin 12.3 g/dL (12.0-15.0); Immature Granulocyte Absolute 0.01 K/mm3 (0.00-0.031); Immature Granulocyte Percent A 0.1 % (0-0.5); Lymphocytes Percent Auto 32.1 % (18.3-44.2); Mean Corpuscular HGB Conc 32.2 g/dl (32-36); Mean Corpuscular Hemoglobin 29.1 pg (26-34); Mean Corpuscular Volume 90.3 fl (80-100); Mean Platelet Volume 9.3 fl (7.4-10.4); Monocytes Absolute Auto 0.7 K/mm3 (0.1-0.6); Monocytes Percent Auto 8.7 % (2.6-8.5); Neutrophils Absolute Auto 4.1 K/mm3 (1.3-6.7); Neutrophils Percent Auto 55.3 % (45.5-73.1); Platelet Count Result 260 k/mm3 (150-375); Red Blood Count 4.23 M/mm3 (4.2-5.4); Red Cell Distribution Width 14.4 % (11.5-14.5); White Blood Count 7.5 K/mm3 (4.5-10.0)
[2025-02-24 23:04] LABS: Prothrombin Time 13.7 Seconds (11.1-14.7)
[2025-02-24 23:14] LABS: Alanine Aminotransferase 17 U/L (6-35); Alkaline Phosphatase 112 U/L (38-126); Anion Gap 7 mmol/L (4-12); Aspartate Amino Transferase 27 U/L (14-36); Bilirubin,Total 0.2 mg/dL (0.2-1.3); Blood Urea Nitrogen 34 mg/dL (7-17); Calcium 9.2 mg/dL (8.4-10.2); Carbon Dioxide 27 mmol/L (22-30); Chloride 105 mmol/L (98-107); Estimated Glomerular Filt Rate > 60; Glucose 99 mg/dL (65-110); Lipase 142 U/L (23-300); Potassium 4.1 mmol/L (3.4-5.0); Sodium 139 mmol/L (137-145)
[2025-02-24 23:26] LABS: Troponin I < 0.012 ng/mL (0.000-0.034)
[2025-02-25] VITALS (15 sets, daily range): BP systolic 112–141; BP diastolic 67–99; PULSE 60–79; RESP 13–20; TEMP 36.8; O2SAT 96–100
--- OUTSIDE RECORDS SUMMARY | 2025-02-25 01:02 | XMS_ITS | CONTINUITY OF CARE DOCUMENT ---
Author Name daily ambrosio Address Unknown Organization [facility] Address [address] [place] [address] Phone [phone] Care Team Providers Care Advertising Operations Coordinator Name Role Phone Manuel WADSWORTH, Nabil Unavailable VIDAL WEEKS MD Unavailable VIDAL WEEKS MD Unavailable PROBLEMS Condition Status Date Provider Notes Family History of CVA or Stroke: active ? Burt Mathis MD Family History of Hypertension: active ? Pancho Mathis MD Chest pain active Villa Mathis MD Hypertension active Nabil Jackson MD Depression active Nabil Jackson MD ENCOUNTERS Date Type Provider Location Encounter Diag nosis - In-person encounter Office Visit Nabil Jackson MD [place] [facility] - In-person encounter Office Visit Nabil Jackson MD [place] [facility] HypertensionDepression - In-person encounter Office Visit Villa Mathis MD [place] [facility] Family History of CVA or Stroke:Family [...] Grmarcellanf elder smoking status Former smoker Gay Cordonjovanyhse nfelder cigarette use yes Navneet kelsey smoking status Former smoker Navneet St ar[place]o FAMILY HISTORY Family Member Condition Mother Family History of Hy pertension: Father Family History of CV A or Stroke: INSURANCE PROVIDERS Payer name Policy type / Coverage type [place] red libertarian ID [place] MEDICARE Medicare [id number] [facility] [address] [id number] ADVANCE DIRECTIVES Name Date DISCUSSED - NO [...] EKG Nabil Jackson MD complet ed SNOMED-CT: [id number] Current Medications Documented Nabil Jackson MD completed Stress EKG Kyle haq MD completed Regadenoson, 4 units Nabil Jackson MD completed Cardiolite, 2 units Nabil Jackson MD completed SPECT Images Andrew Ellis MD com pleted EKG Nabil Jackson MD complet ed SNOMED-CT: [id number] Current Medications Documented Nabil Jackson MD completed EKG Villa Mathis MD complete d SNOMED-CT: [id number] Current Medications Documented Villa Mathis MD completed
--- OUTSIDE RECORDS SUMMARY | 2025-02-25 01:02 | XMS_ITS | Clinical Summary ---
Author Organization [facility] Address [facility] [place] [address] Care Team Providers Care Deicer Element Winder Machine Name Role Phone Vonnie Lindsay MD Primary Care Provider [phone] Source Comments [facility],non-owned Affiliates and Associated Physician Practices is amultiple site organization consisting of ambulatory clinics and hospital sitesin [place], [place], [place] and [place]. This disclosure is being madepursuant to the Care Everywhere program and may not contain all information available regarding this patient. Last updated 18.[employer]ododo [facility] Allergies No known active allergies Medications * Be aware that medications may not be up to date on this document. Alwaysverify current medications with the patient. amLODIPine (NORVASC) 10 MG tablet 07/13/2018 Active metoprolol succinate XL 24hr (TOPROL XL) 50 MG tablet 07/13/2018 Active Calcium Citrate-Vitamin D (CALCIUM + D PO) Take 1 tablet by mouth once daily Active [place]-3 Fatty Acids (FISH OIL PO) Take 1 [...] on file Legal Sex Female 5:24 PM [employer] Gender Identity Not on file Sexual Orientation [...] age to complete this topic Insurance MEDICARE [facility] MEDICARE [facility] Care Teams Deicer Element Winder Machine Relationship Specialty Start Date End Date Vonnie Lindsay MD [address] [place] [id number] PCP - General 08/27/14
--- OUTSIDE RECORDS SUMMARY | 2025-02-25 01:02 | XMS_ITS | Clinical Summary ---
Author Organization [facility] Address [address] [place] [address] Phone Care Team Providers Care Supervisor Model Making Name Role Phone Unavailable Primary Care Provider [...] - 02/21/2025 11:59 PM CDT Hospital Encounter [facility] [address] [place] [address] Mine Aguirre ANP [place]brook, Deborah, RN Discharge Disposition: Home or Self Care 02/19/2025 External Device Data STL ABSTRACTION Provider, Abstract 02/19/2025 External Device Data STL ABSTRACTION Provider, Abstract 02/05/2025 9:15 AM CDT Office Visit [facility] [address] [phone] Jose Alberto Minor DO Abdominal fistula (Primary Dx) 02/05/2025 External Device Data STL ABSTRACTION Provider, Abstract 01/29/2025 8:11 AM CDT - 01/29/2025 11:59 PM CDT Hospital Encounter [facility] - [address] [address] [place] [address] Mine Aguirre, Danyelle Villar, ceo and co founder Disposition: Home or Self Care 01/15/2025 8:51 AM CDT - 01/15/2025 11:59 PM CDT Hospital Encounter [facility] [address] [place] [address] Mine Aguirre, Heather Clement RN Pingel, Carolynn, RN Discharge Disposition: Home or Self Care 01/15/2025 External Device Data STL ABSTRACTION Provider, Abstract 01/15/2025 External Device Data STL ABSTRACTION Provider, Abstract 01/08/2025 External Device Data STL ABSTRACTION Provider, Abstract 12/27/2024 9:00 AM CDT Office Visit [facility] [address] [address] Jose Alberto Minor, Colocutaneous fistula (Primary Dx) 12/19/2024 External Device Data STL ABSTRACTION Provider, Abstract 12/18/2024 External Device Data STL ABSTRACTION Provider, Abstract 12/17/2024 External Device Data STL ABSTRACTION Provider, Abstract 12/15/2024 External Device Data STL ABSTRACTION Provider, Abstract 12/15/2024 External Device Data STL ABSTRACTION Provider, Abstract 12/12/2024 6:47 AM HEELER MACHINE - 12/15/2024 3:03 PM HEELER MACHINE Hospital Encounter [facility] [address] [place] [address] Zulma Higuera MD Keech, Rachel C, DO [...] on file Legal Sex Female 4:23 AM HEELER MACHINE Gender Identity Not on file Sexual Orientation [...] Info) Description 03/14/2025 2:[address] [facility] [address] [place] [address] Mine Aguirre, JOLANTA [address] [place] [address] Health Maintenance Due Date Last Done Comments DTAP/TDAP/TD VACCINES (1 - Tdap) 1959 ZOSTER VACCINE (1 of 2) 1989 OSTEOPOROSIS SCREENING 2004 PNEUMOCOCCAL VACCINE 50+ YEA RS (2 of 2 - PCV) 02/15/2013 02/16/2012 RSV VACCINE (60+ or ) (1 - 1-dose 75+ series) 2014 INFLUENZA VACCINE Completed 10/23/2024, 07/27/2022 Procedures Procedure Name Priority Date/Time Associated Diagnosis Comments PHOSPHORUS Routine 12/15/2024 4:33 AM HEELER MACHINE MAGNESIUM LEVEL Routine 12/15/2024 4:33 AM HEELER MACHINE BASIC METABOLIC PANEL Routine 12/15/2024 4:33 AM HEELER MACHINE CBC WITHOUT DIFFERENTIAL Routine 12/15/2024 4:33 AM HEELER MACHINE NM MYOCARD PERF IMAG SPECT MULT Routine 12/14/2024 3:09 PM HEELER MACHINE HM EJECTION FRACTION Routine 12/14/2024 3:09 PM HEELER MACHINE NM PHARMACOLOGICAL STRESS TEST Stat 12/14/2024 12:42 PM HEELER MACHINE PHOSPHORUS Routine 12/14/2024 6:55 AM HEELER MACHINE MAGNESIUM LEVEL Routine 12/14/2024 6:55 AM HEELER MACHINE BASIC METABOLIC PANEL Routine 12/14/2024 6:55 AM HEELER MACHINE CBC WITHOUT DIFFERENTIAL Routine 12/14/2024 6:55 AM HEELER MACHINE POC GLUCOSE Routine 12/14/2024 4:50 AM HEELER MACHINE PHOSPHORUS Routine 12/13/2024 5:33 AM HEELER MACHINE MAGNESIUM LEVEL Routine 12/13/2024 5:33 AM HEELER MACHINE BASIC METABOLIC PANEL Routine 12/13/2024 5:33 AM HEELER MACHINE CBC WITHOUT DIFFERENTIAL Routine 12/13/2024 5:33 AM HEELER MACHINE C. DIFFICILE DETECTION Routine 12:58 AM HEELER MACHINE URINALYSIS W/REFLEX MICROSCOPIC Stat 12/13/2024 12:56 AM HEELER MACHINE CALCIUM IONIZED Stat 12/12/2024 6:[address] ABDOMEN PELVIS W CONTRAST Stat 12/12/2024 9:40 AM HEELER MACHINE EXTRA TUBE (URINE CONTAINER) Stat 12/12/2024 7:52 AM HEELER MACHINE EXTRA TUBE Stat 12/12/2024 7:52 AM HEELER MACHINE VERIFICATION BLOOD GROUP Stat 12/12/2024 7:30 AM HEELER MACHINE Encounter for blood typing TYPE AND SCREEN Stat 12/12/2024 7:16 AM HEELER MACHINE C-REACTIVE PROTEIN Stat 12/12/2024 7: 16 AM HEELER MACHINE COMPREHENSIVE METABOLIC PANEL Stat 12/12/2024 7:16 AM HEELER MACHINE CBC WITH DIFFERENTIAL Stat 12/12/2024 7:16 AM HEELER MACHINE CRITICAL CARE Routine 12/12/2024 6:47 AM HEELER MACHINE from Last 3 Months Results * (ABNORMAL) CBC WITHOUT DIFFERENTIAL (12/15/2024 4:33 AM HEELER MACHINE) Only the most recent of3 resultswithin the time period is included. WBC 8.4 4.0 - 9.8 K/uL 12/15/2024 5:39 AM HEELER MACHINE [employer] [facility] RBC 3.78(L) 3.90 - 4.90 M/uL 12/15/2024 5:39 AM HEELER MACHINE [employer] [facility] HEMOGLOBIN 11.4(L) 11.8 - 14.8 g/dL 12/15/2024 5:39 AM HEELER MACHINE [employer] [facility] HEMATOCRIT 37.0 35.5 - 44.0 % 12/15/2024 5:39 AM HEELER MACHINE [employer] [facility] MCV 97.9 82.0 - 99.0 fL 12/15/2024 5:39 AM HEELER MACHINE [employer] [facility] MCH 30.2 27.2 - 32.6 pg 12/15/2024 5:39 AM HEELER MACHINE [facility] MCHC 30.8(L) 31.5 - 35.5 g/dL 12/15/2024 5:39 AM [facility] PLATELETS 267 140 - 350 K/uL 12/15/2024 5:39 AM [facility] MPV 10.5 9.3 - 12.4 fL 12/15/2024 5:39 AM [facility] RDW 13.3 11.5 - 14.5 % 12/15/2024 5:39 AM [facility] RDW-STDEV 48.3 37.1 - 48.7 fL 12/15/2024 5:39 AM [facility] Blood Venipuncture / Unknown 12/15/2024 4:33 AM HEELER MACHINE 12/15/2024 5:18 AM HEELER MACHINE Amie Miguel DO HEMATOLOGY ORDERABLES Final Re sult [facility] CLIA# [id number] [address] [place] [address] * PHOSPHORUS (12/15/2024 4:33 AM HEELER MACHINE) Only the most recent of3 resultswithin the time period is included. [facility] PHOSPHORUS 3.5 2.5 - 4.5 mg/dL 12/15/2024 6:07 AM [facility] Blood Venipuncture / Unknown 12/15/2024 4:33 AM HEELER MACHINE 12/15/2024 5:17 AM HEELER MACHINE Amie Miguel DO CHEMISTRY ORDERABLES Final Res ult [facility] CLIA# [id number] [address] [place] [address] * MAGNESIUM LEVEL (12/15/2024 4:33 AM HEELER MACHINE) Only the most recent of3 resultswithin the time period is included. MAGNESIUM 1.7 1.6 - 2.4 mg/dL 12/15/2024 6:[address] [facility] [employer] [facility] Blood Venipuncture / Unknown 12/15/2024 4:33 AM HEELER MACHINE 12/15/2024 5:17 AM HEELER MACHINE Amie Miguel DO CHEMISTRY ORDERABLES Final Res ult [facility] [place] [facility] CLIA# [id number] [address] [facility] [place] [address] * (ABNORMAL) BASIC METABOLIC PANEL (12/15/2024 4:33 AM HEELER MACHINE) Only the most recent of3 resultswithin the time period is included. SODIUM 137 136 - 145 mmol/L 12/15/2024 6:[address] [facility] [employer] [facility] POTASSIUM 4.5 3.5 - 5.0 mmol/L 12/15/2024 6:[address] [facility] [employer] [facility] CHLORIDE 106 98 - 107 mmol/L 12/15/2024 6:[address] [facility] [employer] [facility] CO2 23 22 - 29 mmol/L 12/15/2024 6:[address] [facility] [employer] [facility] CALCIUM 8.9 8.6 - 10.2 mg/dL 12/15/2024 6:[address] [facility] [employer] [facility] BUN 29(H) 8 - 23 mg/dL 12/15/2024 6:[address] [facility] [employer] [facility] CREATININE 0.65 0.51 - 0.95 mg/dL 12/15/2024 6:[address] [facility] [employer] [facility] Comment:The GFR result is no t clinically significant on patients <18 or >70 years of age. GLUCOSE 111(H) 74 - 99 mg/dL 12/15/2024 6:[address] [facility] [employer] [facility] GFR >60 mL/min/1.7 3 sq meter 12/15/2024 6:[address] [facility] [employer] [facility] Comment:eGFR calculated with 2020 CKD-EPI equation. Vegetarian diet, extremely high or low muscle mass, and may affect results. Cystatin C with Glomerular Filtration Rate is a suitable alternative for these patients. ANION GAP 8 8 - 16 mmol/L 12/15/2024 6:07 AM HEELER MACHINE [facility] Blood Venipuncture / Unknown 12/15/2024 4:33 AM HEELER MACHINE 12/15/2024 5:17 AM HEELER MACHINE us Amie Miguel DO CHEMISTRY ORDERABLES Final Res ult [facility] [place] [facility] [id number] [address] [place] [address] * NM MYOCARD PERF IMAG SPECT MULT (12/14/2024 3:09 PM HEELER MACHINE) 12/14/2024 3:10 PM HEELER MACHINE Impressions INTERFACE SYSTEM - 12/14/2024 4:07 PM HEELER MACHINE IMPRESSION: 1) Stress EKG response was negative [...] Narrative INTERFACE SYSTEM - 12/14/2024 4:07 PM HEELER MACHINE Procedure Type: One Day Myoview Regadenoson Pharmacologic [...] for comparison. Recommendations: Clinical correlation is recommended. [employer] ORDERABLES Final Result INTERFACE SYSTEM Refer to clinic/hospital department * HM EJECTION FRACTION (12/14/2024 3:09 PM HEELER MACHINE) [facility] EJECTION FRACTION >70 50 - 65 % Historical Provider HEALTH MAINTENANCE Final Res ult * NM PHARMACOLOGICAL STRESS TEST (12/14/2024 12:42 PM HEELER MACHINE) Narrative 12/14/2024 12:43 PM HEELER MACHINE Order information only. Exam was auto-finalized. [employer] ORDERABLES Final Result * (ABNORMAL) POC GLUCOSE (12/14/2024 4:50 AM HEELER MACHINE) Pathologist [facility] GLUCOSE POC 145(H) 74 - 99 mg/dL 12/14/2024 4:50 AM HEELER MACHINE [facility] SPECIMEN SOURCE, GLUCOSE POC Whole Blood 12/14/2024 4:50 AM HEELER MACHINE [facility] COMMENT, GLU POC Notified RN/MD 12/14/2024 4:50 AM [facility] [place] [facility] Blood, whole 12/14/2024 4:50 AM HEELER MACHINE 12/14/2024 5:01 AM HEELER MACHINE Amie Miguel DO POINT OF CARE TESTING Final Re sult Performing Organization Address [facility]/ZIP Co de Phone Number [facility] [place] [facility] CLIA# [id number] [address] [place] [address] * C. DIFFICILE DETECTION (12/13/2024 12:58 AM HEELER MACHINE) TOXIGENIC C DIFFICILE NOT DETECTED Not Detected 12/13/2024 4:53 AM [facility] [place] [facility] Stool STOOL SPECIMEN / Unknown Collection / Unknown 12/13/2024 12:58 AM HEELER MACHINE 12/13/2024 1:09 AM HEELER MACHINE Narrative [facility] [place] [facility] - 12/13/2024 4:53 AM HEELER MACHINE This assay is used to detect Toxigenic C. difficile target(B gene) DNA sequences in unformed stool specimens. If toxigenic C. difficile is not detected, but clinical suspicion is high please consult ID for consultation and potential repeat testing. This test should not be used as a test of cure. Amie Miguel DO MICROBIOLOGY - GENERAL ORDERAB LES Final Result Performing Organization Address City/[facility]/ZIP Co de Phone Number [facility] [place] [facility] [id number] [address] [place] [address] * (ABNORMAL) URINALYSIS WITH REFLEX MICROSCOPIC (12/13/2024 12:56 AM HEELER MACHINE) COLOR UA Pale Yellow Pale to Dark Yellow 12/13/2024 6:[address] [facility] [employer] [facility] CLARITY UA Clear Clear 12/13/2024 6:39 AM HEELER MACHINE [facility] SPECIFIC GRAVITY UA 1.014 1.003 - 1.035 12/13/2024 6:39 AM HEELER MACHINE [facility] PH UA 7.0 5.0 - 8.0 12/13/2024 6:39 AM [facility] LEUKOCYTE ESTERASE UA Trace(A) Negative 12/13/2024 6:39 AM [facility] NITRITE UA Negative Negative 12/13/2024 6:39 AM [facility] PROTEIN UA Negative Negative 12/13/2024 6:39 AM [facility] - . [place] GLUCOSE UA Negative Negative 12/13/2024 6:39 AM [facility] KETONES UA Negative Negative 12/13/2024 6:39 AM [facility] [place] [facility] UROBILINOGEN UA Normal <2.0 mg/dL 6:39 AM [facility] [place] [facility] BILIRUBIN UA Negative Negative 12/13/2024 6:39 AM [facility] BLOOD UA Negative Negative 12/13/2024 6:39 AM [facility] WBC UA 0-2 0 - 2 /hpf 12/13/2024 6:39 AM [facility] RBC UA 0-2 0 - 2 /hpf 12/13/2024 6:39 AM [facility] . [facility] BACTERIA UA 1+(A) Negative /hpf 12/13/2024 6:39 AM [facility] [place] [facility] EPITHELIAL CELLS, URINE 0-5 0 - 5 /hpf 12/13/2024 6:39 AM [facility] Urine URINE SPECIMEN OBTAINED BY CLEAN CATCH PROCEDURE / Unknown Collection / Unknown 12/13/2024 12:56 AM HEELER MACHINE 12/13/2024 1:10 AM HEELER MACHINE Amie Miguel DO URINE ORDERABLES Final Result [facility] [place] [facility] CLIA# [id number] [address] [facility] [place] [place] [address] * (ABNORMAL) CALCIUM IONIZED (12/12/2024 6:30 PM HEELER MACHINE) PH, VENOUS 7.42 7.32 - 7.43 12/12/2024 6:47 PM HEELER MACHINE [facility] CALCIUM IONIZED 4.1(L) 4.8 - 5.2 mg/dL 12/12/2024 6:47 PM HEELER MACHINE 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 Status post anterior abdominal wall hernia repair within the lower abdomen and pelvis. Stable intrahepatic and extrahepatic biliary dilatation likely related to residual changes from previous biliary disease. Colonic diverticulosis without evidence of diverticulitis. DICTATION LOCATION: Location 1 - [facility] Narrative 12/12/2024 10:[address] ABDOMEN AND PELVIS WITH IV CONTRAST [...] of diverticulitis. DICTATION LOCATION: Location 1 - [facility] us Zulma Higuera MD CT ORDERABLES Final Result * EXTRA TUBE (URINE CONTAINER) (12/12/2024 7:52 AM HEELER MACHINE) Urine URINE SPECIMEN OBTAINED BY CLEAN CATCH PROCEDURE / Unknown Collection / Unknown 12/12/2024 7:52 AM HEELER MACHINE 12/12/2024 7:55 AM HEELER MACHINE us Protocol [facility] Emergency URINE ORDERABLES Fin al Result [facility]# [id number] [address] [place] [address] * VERIFICATION BLOOD GROUP (12/12/2024 7:30 AM HEELER MACHINE) ABO GROUP O 12/12/2024 8:07 AM HEELER MACHINE [facility] RH (D) TYPE Positive 12/12/2024 8:07 AM HEELER MACHINE [facility] Blood Venipuncture / Unknown 12/12/2024 7:30 AM HEELER MACHINE 12/12/2024 7:33 AM HEELER MACHINE Audra Henry MD BLOOD BANK ORDERABLES Final Result Performing Organizat [id number]|2025-02-25 01:02:00|2025-02-24 21:01:00|XMS_ITS|CASSIE ROMERO|External Medical Summaries|[id number]|" Summary of Patient Chart Created on: February 24, 2025 Cynthia Sheriff : 1940 Sex: Female Author Name Auto Generated, Auto Generated Organization [employer] [facility] ices Address [address] [place] [address] Phone [phone] Care Team Providers Care Supervisor Model Making Name Role Phone Sheree Garza Unavailable Isabela Fair Unavailable Functional Status No Results Mental Status No Results Allergies and Intolerances Name Onset Date Reaction Severity No Known Allergies (Allergy) TueDec 19 15:13:00 EDT 2024 Encounters Program Name Primary Diagnosis Admission Date/Time Dis charge Date/Time [facility] TueDec 19 08:00:00 EDT 2024Jan 09 06:30:00 EDT 2024 Immunizations Name Dates Status TST-PPD intradermal Tricia Dec 20 01:00:00 EDT 2024 Completed TST-PPD intradermal Sat Dec 22 01:00:00 EDT 2024 Completed TST-PPD intradermal Sat Dec 29 01:00:00 EDT 2024 Completed TST-PPD intradermal Tricia Dec 27 01:00:00 EDT 2024 Completed Medications Medication Directions Start Date End Date ondansetron 4 mg disintegrating tablet 1 tab TABLET,DISINTEGRATING Sublingual PRN Every 8 Hours Indication: nausea TueDec 20 03:30:00 EDT 2024Jan 09 01:00:00 EDT 2024 metoprolol tartrate 25 mg tablet 1 TABLET Oral 2 Times Daily Indication: high bloodpressure TueDec 19 21:00:00 EDT 2024Dec 19 15:14:00 EDT 2024 mirtazapine 7.5 mg tablet 1 TABLET Oral 1 Time Daily Indication: depression TueDec 19 21:00:00 EDT 2024Dec 19 15:16:00 EDT 2024 metoprolol tartrate 25 mg tablet 1 tablet TABLET Oral 2 Times Daily Indication: HTN TueDec 19 15:13:00 EDT 2024Jan 09 01:00:00 EDT 2024 mirtazapine 7.5 mg tablet 1 tablet TABLE T Oral 1 Time Daily Indication: Appetite Stimulant TueDec 19 15:00:00 EDT 2024Jan 09 01:00:00 EDT 2024 TubersoL 5 tub. unit/0.1 mL intradermal injection solution 0.1 ml VIAL (ML) Intradermal 1 Time Weekly for 2 Weeks Indication: . 1st injection on admission, then one week after. Read between 48 and 72 hours TueDec 19 15:00:00 EDT 2024Jan 02 14:59:00 EDT 2024 TubersoL 5 tub. unit/0.1 mL intradermal injection solution Read Results VIAL (ML) Other 1 Time Weekly for 2 Weeks Indication: . Read results between 48-72 hours after 1st and 2nd (1 week apart). Any reading of 10mm or greater results in a positive test, an x-ray will need to be ordered as a follow up. TueDec 19 18:00:00 EDT 2024Jan 02 17:59:00 EDT 2024 Problems Active Concerns * Fistula of intestine* Code: * Start Date: TueDec 19 00:00:00 EDT 2024 * End Date: * Text: * Personal history of malignant neoplasm of breast* Code: * Start Date: TueDec 19 00:00:00 EDT 2024 * End Date: * Text: * Unspecified open wound of abdominal wall, unspecified quadrant without penetration into peritoneal cavity, subsequent encounter* Code: * Start Date: TueDec 19 00:00:00 EDT 2024 * End Date: * Text: * Exposure of other implanted mesh into organ or tissue, subsequent encounter* Code: * Start Date: TueDec 19 00:00:00 EDT 2024 * End Date: * Text: * Urinary tract infection, site not specified* Code: * Start Date: TueDec 19 00:00:00 EDT 2024 * End Date: * Text: * Unspecified severe protein-calorie malnutrition* Code: * Start Date: TueDec 19 00:00:00 EDT 2024 * End Date: * Text: * Essential (primary) hypertension* Code: * Start Date: TueDec 19 00:00:00 EDT 2024 * End Date: * Text: * Diverticulosis of large intestine without perforation or abscess without bleeding* Code: * Start Date: TueDec 19 00:00:00 EDT 2024 * End Date: * Text: * Unspecified asthma, uncomplicated* Code: * Start Date: TueDec 19 00:00:00 EDT 2024 * End Date: * Text: * Encounter for attention to other artificial openings of digestive tract* Code: * Start Date: TueDec 19 00:00:00 EDT 2024 * End Date: * Text: * Major depressive disorder, single episode, unspecified* Code: * Start Date: TueDec 19 00:00:00 EDT 2024 * End Date: * Text: * Other symptoms and signs involving cognitive functions and awareness* Code: * Start Date: TueDec 19 00:00:00 EDT 2024 * End Date: * Text: * Dizziness and giddiness* Code: * Start Date: TueDec 19 00:00:00 EDT 2024 * End Date: * Text: * LSS_Psychotropic Drug Use - Use of psychotropic drug use places Cynthia at risk for drug-related sideeffects.* Code: * Start Date: TueDec 27 00:00:00 EDT 2024 * End Date: * Text: LSS_Psychotropic Drug Use - Use of psychotropic drug use places Cynthia at risk for drug-related side effects. * LSS_Falls Kimmy Marie is at risk for falls/injury as evidenced by: history of falls, cognitive status/behavior, vision status, continence, mobility, balance.* Code: * Start Date: TueDec 27 00:00:00 EDT 2024 * End Date: * Text: PETERFalls Kimmy Marie is at risk for falls/injury as evidenced by: history of falls, cognitive status/behavior, vision status, continence, mobility, balance. * PETERSocial Jake Marie's wishes will be followed (Advanced Directive/Code Status).* Code: * Start Date: TueDec 28 00:00:00 EDT 2024 * End Date: * Text: PETERSocial Jake Marie's wishes will be followed (Advanced Directive/Code Status). * PETERSocial Jake Marie will be involved in goal development to the best of his or her ability.* Code: * Start Date: TueDec 28 00:00:00 EDT 2024 * End Date: * Text: PETERSocial Jake Marie will be involved in goal development to the best of his or her ability. * PETERSocial Jake Marie has family/friends who are supportive.* Code: * Start Date: TueDec 28 00:00:00 EDT 2024 * End Date: * Text: PETERSocial Jake Marie has family/friends who are supportive. * PETERSocial Jake Marie's mobility level is different than prior level due to current medical condition.* Code: * Start Date: TueDec 28 00:00:00 EDT 2024 * End Date: * Text: PETERSocial Jake Marie's mobility level is different than prior level due to current medical condition. * PETERSocial Jake Marie will be involved in discharge planning.* Code: * Start Date: TueDec 28 00:00:00 EDT 2024 * End Date: * Text: PETERSocial Jake Marie will be involved in discharge planning. 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 Vital Signs Vital Sign Measurement Date Systolic Blood Pressure 119.00 mm[Hg] TueJan 09 09:20:20 EDT 2024 Diastolic Blood Pressure 66.00 mm[Hg] TueJan 09 09:20:20 EDT 2024 Heart Rate 73.00 /min TueJan 09 09:20 :20 EDT 2024 Systolic Blood Pressure 116.00 mm[Hg] TueJan 08 23:48:34 EDT 2024 Diastolic Blood Pressure 66.00 mm[Hg] TueJan 08 23:48:34 EDT 2024 Heart Rate 70.00 /min TueJan 08 23:48 :34 EDT 2024 Body temperature 97.70 [degF] TueJan 08 23:4 8:34 EDT 2024 Respiratory rate 18.00 /min TueJan 08 23:4 8:34 EDT 2024 Pulse Oximetry 97.00 % TueJan 08 23:48 :34 EDT 2024 Systolic Blood Pressure 116.00 mm[Hg] TueJan 08 21:09:43 EDT 2024 Diastolic Blood Pressure 66.00 mm[Hg] TueJan 08 21:09:43 EDT 2024 Heart Rate 70.00 /min TueJan 08 21:09 :43 EDT 2024 Body weight 124.20 [lb_av] TueJan 08 17:22 :15 EDT 2024 Systolic Blood Pressure 149.00 mm[Hg] TueJan 08 10:22:49 EDT 2024 Diastolic Blood Pressure 75.00 mm[Hg] TueJan 08 10:22:49 EDT 2024 Heart Rate 70.00 /min TueJan 08 10:22 :49 EDT 2024 Body temperature 97.70 [degF] TueJan 08 10:2 2:49 EDT 2024 Respiratory rate 20.00 /min TueJan 08 10:2 2:49 EDT 2024 Pulse Oximetry 95.00 % TueJan 08 10:22 :49 EDT 2024 Systolic Blood Pressure 149.00 mm[Hg] TueJan 08 09:25:53 EDT 2024 Diastolic Blood Pressure 75.00 mm[Hg] TueJan 08 09:25:53 EDT 2024 Heart Rate 70.00 /min TueJan 08 09:25 :53 EDT 2024 Systolic Blood Pressure 144.00 mm[Hg] TueJan 08 00:22:02 EDT 2024 Diastolic Blood Pressure 75.00 mm[Hg] TueJan 08 00:22:02 EDT 2024 Heart Rate 81.00 /min TueJan 08 00:22 :02 EDT 2024 Body temperature 97.50 [degF] TueJan 08 00:2 2:02 EDT 2024 Respiratory rate 18.00 /min TueJan 08 00:2 2:02 EDT 2024 Pulse Oximetry 98.00 % TueJan 08 00:22 :02 EDT 2024 Systolic Blood Pressure 144.00 mm[Hg] TueJan 07 21:12:35 EDT 2024 Diastolic Blood Pressure 75.00 mm[Hg] TueJan 07 21:12:35 EDT 2024 Heart Rate 81.00 /min TueJan 07 21:12 :35 EDT 2024 Body weight 124.00 [lb_av] TueJan 07 10:51 :13 EDT 2024 Systolic Blood Pressure 132.00 mm[Hg] TueJan 07 09:30:11 EDT 2024 Diastolic Blood Pressure 73.00 mm[Hg] TueJan 07 09:30:11 EDT 2024 Systolic Blood Pressure 132.00 mm[Hg] TueJan 07 09:30:11 EDT 2024 Diastolic Blood Pressure 73.00 mm[Hg] TueJan 07 09:30:11 EDT 2024 Heart Rate 70.00 /min TueJan 07 09:30 :11 EDT 2024 Heart Rate 70.00 /min TueJan 07 09:30 :11 EDT 2024 Body temperature 97.20 [degF] TueJan 07 09:3 0:11 EDT 2024 Respiratory rate 20.00 /min TueJan 07 09:3 0:11 EDT 2024 Pulse Oximetry 93.00 % TueJan 07 09:30 :11 EDT 2024 Systolic Blood Pressure 109.00 mm[Hg] TueJan 07 00:37:41 EDT 2024 Diastolic Blood Pressure 63.00 mm[Hg] TueJan 07 00:37:41 EDT 2024 Heart Rate 74.00 /min TueJan 07 00:37 :41 EDT 2024 Body temperature 97.70 [degF] TueJan 07 00:3 7:41 EDT 2024 Respiratory rate 20.00 /min TueJan 07 00:3 7:41 EDT 2024 Pulse Oximetry 99.00 % TueJan 07 00:37 :41 EDT 2024 Systolic Blood Pressure 109.00 mm[Hg] Tue 30 21:01:58 EDT 2024 Diastolic Blood Pressure 63.00 mm[Hg] TueJan 06 21:01:58 EDT 2024 Heart Rate 74.00 /min TueJan 06 21:01 :58 EDT 2024 Body weight 123.60 [lb_av] TueJan 06 13:42 :23 EDT 2024 Systolic Blood Pressure 137.00 mm[Hg] TueJan 06 10:01:00 EDT 2024 Diastolic Blood Pressure 79.00 mm[Hg] TueJan 06 10:01:00 EDT 2024 Systolic Blood Pressure 137.00 mm[Hg] TueJan 06 10:01:00 EDT 2024 Diastolic Blood Pressure 79.00 mm[Hg] TueJan 06 10:01:00 EDT 2024 Heart Rate 74.00 /min TueJan 06 10:01 :00 EDT 2024 Heart Rate 74.00 /min TueJan 06 10:01 :00 EDT 2024 Body temperature 97.70 [degF] TueJan 06 10:0 1:00 EDT 2024 Respiratory rate 16.00 /min TueJan 06 10:0 1:00 EDT 2024 Pulse Oximetry 96.00 % TueJan 06 10:01 :00 EDT 2024 Systolic Blood Pressure 120.00 mm[Hg] Sat Jan 05 23:37:49 EDT 2024 Diastolic Blood Pressure 65.00 mm[Hg] Sat Jan 05 23:37:49 EDT 2024 Heart Rate 78.00 /min [facility] Jan 05 23:37 :49 EDT 2024 Body temperature 97.40 [degF] Sat Mar 23:3 7:49 EDT 2024 Respiratory rate 18.00 /min Sat Mar 23:3 7:49 EDT 2024 Pulse Oximetry 99.00 % Sat Mar 23:37 :49 EDT 2024 Systolic Blood Pressure 120.00 mm[Hg] Sat Mar 29 20:59:18 EDT 2024 Diastolic Blood Pressure 65.00 mm[Hg] Sat Mar 20:59:18 EDT 2024 Heart Rate 78.00 /min Sat Mar 20:59 :18 EDT 2024 Systolic Blood Pressure 128.00 mm[Hg] Sat Mar 29 11:44:43 EDT 2024 Diastolic Blood Pressure 82.00 mm[Hg] Sat Mar 11:44:43 EDT 2024 Body weight 124.40 [lb_av] Tue 29 11:44 :43 EDT 2024 Heart Rate 75.00 /min TueJan 05 11:44 :43 EDT 2024 Body temperature 98.20 [degF] TueJan 05 11:4 4:43 EDT 2024 Respiratory rate 18.00 /min TueJan 05 11:4 4:43 EDT 2024 Pulse Oximetry 98.00 % TueJan 05 11:44 :43 EDT 2024 Systolic Blood Pressure 128.00 mm[Hg] TueJan 05 09:16:15 EDT 2024 Diastolic Blood Pressure 52.00 mm[Hg] TueJan 05 09:16:15 EDT 2024 Heart Rate 75.00 /min TueJan 05 09:16 :15 EDT 2024 Systolic Blood Pressure 132.00 mm[Hg] TueJan 05 00:07:11 EDT 2024 Diastolic Blood Pressure 65.00 mm[Hg] TueJan 05 00:07:11 EDT 2024 Heart Rate 85.00 /min TueJan 05 00:07 :11 EDT 2024 Body temperature 98.00 [degF] TueJan 05 00:0 7:11 EDT 2024 Respiratory rate 20.00 /min TueJan 05 00:0 7:11 EDT 2024 Pulse Oximetry 94.00 % TueJan 05 00:07 :11 EDT 2024 Systolic Blood Pressure 132.00 mm[Hg] TueJan 04 22:08:38 EDT 2024 Diastolic Blood Pressure 65.00 mm[Hg] TueJan 04 22:08:38 EDT 2024 Heart Rate 85.00 /min TueJan 04 22:08 :38 EDT 2024 Body weight 124.80 [lb_av] TueJan 04 14:18 :29 EDT 2024 Systolic Blood Pressure 125.00 mm[Hg] TueJan 04 09:13:44 EDT 2024 Diastolic Blood Pressure 68.00 mm[Hg] TueJan 04 09:13:44 EDT 2024 Systolic Blood Pressure 125.00 mm[Hg] TueJan 04 09:13:44 EDT 2024 Diastolic Blood Pressure 68.00 mm[Hg] TueJan 04 09:13:44 EDT 2024 Heart Rate 72.00 /min TueJan 04 09:13 :44 EDT 2024 Heart Rate 72.00 /min TueJan 04 09:13 :44 EDT 2024 Body temperature 98.00 [degF] TueJan 04 09:1 3:44 EDT 2024 Respiratory rate 18.00 /min TueJan 04 09:1 3:44 EDT 2024 Pulse Oximetry 96.00 % TueJan 04 09:13 :44 EDT 2024 Systolic Blood Pressure 132.00 mm[Hg] TueJan 04 00:56:25 EDT 2024 Diastolic Blood Pressure 79.00 mm[Hg] TueJan 04 00:56:25 EDT 2024 Heart Rate 78.00 /min TueJan 04 00:56 :25 EDT 2024 Body temperature 98.00 [degF] TueJan 04 00:5 6:25 EDT 2024 Respiratory rate 16.00 /min TueJan 04 00:5 6:25 EDT 2024 Pulse Oximetry 95.00 % TueJan 04 00:56 :25 EDT 2024 Systolic Blood Pressure 132.00 mm[Hg] TueJan 03 21:11:20 EDT 2024 Diastolic Blood Pressure 79.00 mm[Hg] Tricia Jan 03 21:11:20 EDT 2024 Heart Rate 70.00 /min TueJan 03 21:11 :20 EDT 2024 Body weight 121.40 [lb_av] TueJan 03 13:20 :48 EDT 2024 Systolic Blood Pressure 116.00 mm[Hg] Tricia Jan 03 10:58:15 EDT 2024 Diastolic Blood Pressure 62.00 mm[Hg] Tricia Jan 03 10:58:15 EDT 2024 Body temperature 97.80 [degF] Tricia Jan 03 10:5 8:15 EDT 2024 Respiratory rate 18.00 /min Tricia Jan 03 10:5 8:15 EDT 2024 Pulse Oximetry 96.00 % TueJan 03 10:58 :15 EDT 2024 Heart Rate 73.00 /min Tricia Jan 03 10:58 :15 EDT 2024 Systolic Blood Pressure 116.00 mm[Hg] TueJan 03 09:23:41 EDT 2024 Diastolic Blood Pressure 62.00 mm[Hg] TueJan 03 09:23:41 EDT 2024 Heart Rate 73.00 /min TueJan 03 09:23 :41 EDT 2024 Systolic Blood Pressure 136.00 mm[Hg] TueJan 02 23:09:01 EDT 2024 Diastolic Blood Pressure 70.00 mm[Hg] TueJan 02 23:09:01 EDT 2024 Heart Rate 86.00 /min TueJan 02 23:09 :01 EDT 2024 Body temperature 97.40 [degF] TueJan 02 23:0 9:01 EDT 2024 Respiratory rate 18.00 /min TueJan 02 23:0 9:01 EDT 2024 Pulse Oximetry 99.00 % TueJan 02 23:09 :01 EDT 2024 Systolic Blood Pressure 136.00 mm[Hg] TueJan 02 21:46:53 EDT 2024 Diastolic Blood Pressure 70.00 mm[Hg] TueJan 02 21:46:53 EDT 2024 Heart Rate 86.00 /min TueJan 02 21:46 :53 EDT 2024 Body weight 121.80 [lb_av] TueJan 02 11:57 :25 EDT 2024 Systolic Blood Pressure 133.00 mm[Hg] TueJan 02 10:42:59 EDT 2024 Diastolic Blood Pressure 70.00 mm[Hg] TueJan 02 10:42:59 EDT 2024 Heart Rate 75.00 /min TueJan 02 10:42 :59 EDT 2024 Body temperature 97.50 [degF] TueJan 02 10:4 2:59 EDT 2024 Respiratory rate 18.00 /min TueJan 02 10:4 2:59 EDT 2024 Pulse Oximetry 98.00 % TueJan 02 10:42 :59 EDT 2024 Systolic Blood Pressure 133.00 mm[Hg] TueJan 02 09:07:21 EDT 2024 Diastolic Blood Pressure 70.00 mm[Hg] TueJan 02 09:07:21 EDT 2024 Heart Rate 75.00 /min TueJan 02 09:07 :21 EDT 2024 Systolic Blood Pressure 130.00 mm[Hg] TueJan 02 00:05:12 EDT 2024 Diastolic Blood Pressure 59.00 mm[Hg] TueJan 02 00:05:12 EDT 2024 Heart Rate 74.00 /min TueJan 02 00:05 :12 EDT 2024 Body temperature 97.80 [degF] TueJan 02 00:0 5:12 EDT 2024 Respiratory rate 18.00 /min TueJan 02 00:0 5:12 EDT 2024 Pulse Oximetry 99.00 % TueJan 02 00:05 :12 EDT 2024 Systolic Blood Pressure 133.00 mm[Hg] TueJan 01 21:16:56 EDT 2024 Diastolic Blood Pressure 63.00 mm[Hg] TueJan 01 21:16:56 EDT 2024 Heart Rate 75.00 /min TueJan 01 21:16 :56 EDT 2024 Body weight 122.40 [lb_av] TueJan 01 11:03 :46 EDT 2024 Systolic Blood Pressure 140.00 mm[Hg] TueJan 01 09:01:35 EDT 2024 Diastolic Blood Pressure 74.00 mm[Hg] TueJan 01 09:01:35 EDT 2024 Systolic Blood Pressure 140.00 mm[Hg] TueJan 01 09:01:35 EDT 2024 Diastolic Blood Pressure 74.00 mm[Hg] TueJan 01 09:01:35 EDT 2024 Heart Rate 70.00 /min TueJan 01 09:01 :35 EDT 2024 Heart Rate 70.00 /min TueJan 01 09:01 :35 EDT 2024 Body temperature 97.80 [degF] TueJan 01 09:0 1:35 EDT 2024 Respiratory rate 18.00 /min TueJan 01 09:0 1:35 EDT 2024 Pulse Oximetry 95.00 % TueJan 01 09:01 :35 EDT 2024 Systolic Blood Pressure 127.00 mm[Hg] TueJan 01 00:24:15 EDT 2024 Diastolic Blood Pressure 68.00 mm[Hg] TueJan 01 00:24:15 EDT 2024 Heart Rate 80.00 /min TueJan 01 00:24 :15 EDT 2024 Body temperature 97.80 [degF] TueJan 01 00:2 4:15 EDT 2024 Respiratory rate 18.00 /min TueJan 01 00:2 4:15 EDT 2024 Pulse Oximetry 97.00 % TueJan 01 00:24 :15 EDT 2024 Systolic Blood Pressure 127.00 mm[Hg] TueDec 31 21:15:55 EDT 2024 Diastolic Blood Pressure 68.00 mm[Hg] TueDec 31 21:15:55 EDT 2024 Heart Rate 80.00 /min TueDec 31 21:15 :55 EDT 2024 Body weight 121.40 [lb_av] TueDec 31 12:25 :07 EDT 2024 Systolic Blood Pressure 118.00 mm[Hg] Mon Mar 24 10:07:43 EDT 2024 Diastolic Blood Pressure 65.00 mm[Hg] Tue 24 10:07:43 EDT 2024 Systolic Blood Pressure 118.00 mm[Hg] TueDec 31 10:07:43 EDT 2024 Diastolic Blood Pressure 65.00 mm[Hg] TueDec 31 10:07:43 EDT 2024 Heart Rate 78.00 /min TueDec 31 10:07 :43 EDT 2024 Heart Rate 78.00 /min TueDec 31 10:07 :43 EDT 2024 Body temperature 97.70 [degF] TueDec 31 10:0 7:43 EDT 2024 Respiratory rate 18.00 /min TueDec 31 10:0 7:43 EDT 2024 Pulse Oximetry 96.00 % TueDec 31 10:07 :43 EDT 2024 Systolic Blood Pressure 102.00 mm[Hg] TueDec 30 23:04:21 EDT 2024 Diastolic Blood Pressure 64.00 mm[Hg] TueDec 30 23:04:21 EDT 2024 Heart Rate 70.00 /min TueDec 30 23:04 :21 EDT 2024 Body temperature 97.70 [degF] TueDec 30 23:0 4:21 EDT 2024 Respiratory rate 18.00 /min TueDec 30 23:0 4:21 EDT 2024 Pulse Oximetry 99.00 % TueDec 30 23:04 :21 EDT 2024 Systolic Blood Pressure 102.00 mm[Hg] Tue Mar 20:44:19 EDT 2024 Diastolic Blood Pressure 64.00 mm[Hg] Tue Mar 20:44:19 EDT 2024 Heart Rate 70.00 /min TueDec 30 20:44 :19 EDT 2024 Systolic Blood Pressure 125.00 mm[Hg] Tue Mar 23 13:59:47 EDT 2024 Diastolic Blood Pressure 70.00 mm[Hg] Tue Mar 23 13:59:47 EDT 2024 Body weight 120.70 [lb_av] Tue Mar 23 13:59 :47 EDT 2024 Heart Rate 68.00 /min Tue 23 13:59 :47 EDT 2024 Body temperature 97.70 [degF] Tue Mar 23 13:5 9:47 EDT 2024 Respiratory rate 18.00 /min Tue 23 13:5 9:47 EDT 2024 Pulse Oximetry 98.00 % Sun Mar 23 13:59 :47 EDT 5 Systolic Blood Pressure 125.00 mm[Hg] Sun Mar 23 13:40:44 EDT 2024 Diastolic Blood Pressure 70.00 mm[Hg] Sun Mar 23 13:40:44 EDT 2024 Heart Rate 68.00 /min Sun Mar 23 13:40 :44 EDT 2024 Systolic Blood Pressure 119.00 mm[Hg] Sat Mar 22 20:58:09 EDT 2024 Diastolic Blood Pressure 65.00 mm[Hg] Sat Mar 22 20:58:09 EDT 2024 Systolic Blood Pressure 119.00 mm[Hg] Sat Mar 22 20:58:09 EDT 2024 Diastolic Blood Pressure 65.00 mm[Hg] Sat Mar 22 20:58:09 EDT 2024 Heart Rate 76.00 /min Sat Mar 22 20:58 :09 EDT 2024 Heart Rate 76.00 /min Sat Mar 22 20:58 :09 EDT 2024 Body temperature 97.90 [degF] Sat Mar 22 20:5 8:09 EDT 2024 Respiratory rate 18.00 /min Sat Mar 22 20:5 8:09 EDT 2024 Pulse Oximetry 97.00 % [facility] Mar 22 20:58 :09 EDT 2024 Systolic Blood Pressure 135.00 mm[Hg] Sat Mar 22 10:37:32 EDT 2024 Diastolic Blood Pressure 72.00 mm[Hg] Sat Mar 22 10:37:32 EDT 2024 Body weight 121.80 [lb_av] Sat Mar 22 10:37 :32 EDT 2024 Heart Rate 68.00 /min [facility] Mar 22 10:37 :32 EDT 2024 Body temperature 97.40 [degF] Sat Mar 22 10:3 7:32 EDT 2024 Respiratory rate 18.00 /min Sat Mar 22 10:3 7:32 EDT 2024 Pulse Oximetry 97.00 % Sat Mar 22 10:37 :32 EDT 2024 Systolic Blood Pressure 135.00 mm[Hg] Sat Mar 22 09:31:00 EDT 2024 Diastolic Blood Pressure 72.00 mm[Hg] Sat Mar 22 09:31:00 EDT 2024 Heart Rate 68.00 /min Sat Mar 22 09:31 :00 EDT 2024 Systolic Blood Pressure 147.00 mm[Hg] Sat Mar 22 01:59:21 EDT 2024 Diastolic Blood Pressure 78.00 mm[Hg] Sat Mar 22 01:59:21 EDT 5 Heart Rate 79.00 /min Tue 22 01:59 :21 EDT 5 Body temperature 98.00 [degF] TueDec 29 01:5 9:21 EDT 2024 Respiratory rate 18.00 /min TueDec 29 01:5 9:21 EDT 5 Pulse Oximetry 99.00 % [facility] Dec 29 01:59 :21 EDT 2024 Systolic Blood Pressure 147.00 mm[Hg] TueDec 28 21:51:22 EDT 2024 Diastolic Blood Pressure 78.00 mm[Hg] TueDec 28 21:51:22 EDT 5 Heart Rate 79.00 /min TueDec 28 21:51 :22 EDT 2024 Body weight 120.40 [lb_av] TueDec 28 13:51 :07 EDT 2024 Systolic Blood Pressure 109.00 mm[Hg] TueDec 28 09:04:55 EDT 2024 Diastolic Blood Pressure 67.00 mm[Hg] TueDec 28 09:04:55 EDT 2024 Systolic Blood Pressure 109.00 mm[Hg] TueDec 28 09:04:55 EDT 2024 Diastolic Blood Pressure 67.00 mm[Hg] TueDec 28 09:04:55 EDT 2024 Heart Rate 68.00 /min TueDec 28 09:04 :55 EDT 2024 Heart Rate 68.00 /min TueDec 28 09:04 :55 EDT 2024 Body temperature 97.30 [degF] TueDec 28 09:0 4:55 EDT 2024 Respiratory rate 18.00 /min TueDec 28 09:0 4:55 EDT 2024 Pulse Oximetry 97.00 % TueDec 28 09:04 :55 EDT 2024 Systolic Blood Pressure 125.00 mm[Hg] Tricia Dec 27 22:06:45 EDT 2024 Diastolic Blood Pressure 86.00 mm[Hg] Tricia Dec 27 22:06:45 EDT 2024 Heart Rate 111.00 /min Tricia Dec 27 22:06 :45 EDT 2024 Body temperature 97.80 [degF] Tricia Dec 27 22:0 6:45 EDT 2024 Respiratory rate 18.00 /min Tricia Dec 27 22:0 6:45 EDT 2024 Pulse Oximetry 92.00 % [facility] Dec 27 22:06 :45 EDT 2025 Systolic Blood Pressure 134.00 mm[Hg] [facility] 20 21:20:00 EDT 2024 Diastolic Blood Pressure 70.00 mm[Hg] [facility] 20 21:20:00 EDT 2024 Heart Rate 64.00 /min [facility] 20 21:20 :00 EDT 2024 Body weight 118.20 [lb_av] Tricia Dec 27 18:16 :56 EDT 2024 Systolic Blood Pressure 134.00 mm[Hg] Tricia Dec 27 10:13:58 EDT 2024 Diastolic Blood Pressure 68.00 mm[Hg] Tricia Dec 27 10:13:58 EDT 2024 Heart Rate 64.00 /min Tricia Dec 27 10:13 :58 EDT 2024 Body temperature 98.40 [degF] Tricia Dec 27 10:1 3:58 EDT 2024 Respiratory rate 16.00 /min Tricia Dec 27 10:1 3:58 EDT 2024 Pulse Oximetry 98.00 % Tricia Dec 27 10:13 :58 EDT 2024 Systolic Blood Pressure 134.00 mm[Hg] TueDec 26 23:51:35 EDT 2024 Diastolic Blood Pressure 75.00 mm[Hg] TueDec 26 23:51:35 EDT 2024 Heart Rate 98.00 /min TueDec 26 23:51 :35 EDT 2024 Body temperature 97.60 [degF] TueDec 26 23:5 1:35 EDT 2024 Respiratory rate 16.00 /min TueDec 26 23:5 1:35 EDT 2024 Pulse Oximetry 99.00 % TueDec 26 23:51 :35 EDT 2024 Systolic Blood Pressure 134.00 mm[Hg] TueDec 26 22:01:14 EDT 2024 Diastolic Blood Pressure 75.00 mm[Hg] TueDec 26 22:01:14 EDT 2024 Heart Rate 98.00 /min TueDec 26 22:01 :14 EDT 2024 Body weight 117.50 [lb_av] TueDec 26 17:05 :23 EDT 2024 Systolic Blood Pressure 161.00 mm[Hg] TueDec 26 09:08:37 EDT 2024 Diastolic Blood Pressure 91.00 mm[Hg] TueDec 26 09:08:37 EDT 2024 Systolic Blood Pressure 161.00 mm[Hg] TueDec 26 09:08:37 EDT 2024 Diastolic Blood Pressure 91.00 mm[Hg] Wed Mar 19 09:08:37 EDT 2024 Heart Rate 85.00 /min Tue 19 09:08 :37 EDT 2024 Heart Rate 85.00 /min TueDec 26 09:08 :37 EDT 2024 Body temperature 97.30 [degF] Tue 19 09:0 8:37 EDT 2024 Respiratory rate 18.00 /min TueDec 26 09:0 8:37 EDT 2024 Pulse Oximetry 98.00 % TueDec 26 09:08 :37 EDT 2024 Systolic Blood Pressure 109.00 mm[Hg] Tue 19 00:22:18 EDT 2024 Diastolic Blood Pressure 85.00 mm[Hg] TueDec 26 00:22:18 EDT 2024 Heart Rate 82.00 /min TueDec 26 00:22 :18 EDT 2024 Body temperature 98.00 [degF] TueDec 26 00:2 2:18 EDT 2024 Respiratory rate 22.00 /min TueDec 26 00:2 2:18 EDT 2024 Pulse Oximetry 97.00 % TueDec 26 00:22 :18 EDT 2024 Systolic Blood Pressure 109.00 mm[Hg] Tue 18 21:32:04 EDT 2024 Diastolic Blood Pressure 85.00 mm[Hg] TueDec 25 21:32:04 EDT 2024 Heart Rate 82.00 /min TueDec 25 21:32 :04 EDT 2024 Body weight 119.80 [lb_av] TueDec 25 18:04 :39 EDT 2024 Systolic Blood Pressure 119.00 mm[Hg] Tue 18 11:36:12 EDT 2024 Diastolic Blood Pressure 66.00 mm[Hg] Tue 18 11:36:12 EDT 2024 Systolic Blood Pressure 119.00 mm[Hg] Tue 18 11:36:12 EDT 2024 Diastolic Blood Pressure 66.00 mm[Hg] Tue 18 11:36:12 EDT 2024 Heart Rate 78.00 /min Tue 18 11:36 :12 EDT 2024 Heart Rate 78.00 /min Tue 18 11:36 :12 EDT 2024 Body temperature 97.70 [degF] TueDec 25 11:3 6:12 EDT 2024 Respiratory rate 18.00 /min TueDec 25 11:3 6:12 EDT 2024 Pulse Oximetry 99.00 % Tue 18 11:36 :12 EDT 5 Systolic Blood Pressure 123.00 mm[Hg] Tue 18 00:24:34 EDT 2024 Diastolic Blood Pressure 71.00 mm[Hg] Tue 18 00:24:34 EDT 2024 Heart Rate 72.00 /min Tue 18 00:24 :34 EDT 2024 Body temperature 97.60 [degF] Tue 18 00:2 4:34 EDT 2024 Respiratory rate 18.00 /min Tue 18 00:2 4:34 EDT 2024 Pulse Oximetry 97.00 % Tue 18 00:24 :34 EDT 2024 Systolic Blood Pressure 123.00 mm[Hg] TueDec 24 20:58:09 EDT 2024 Diastolic Blood Pressure 71.00 mm[Hg] TueDec 24 20:58:09 EDT 2024 Heart Rate 72.00 /min TueDec 24 20:58 :09 EDT 2024 Body weight 117.80 [lb_av] Tue 17 16:14 :12 EDT 2024 Body Height 60.00 [in_i] TueDec 24 12:56 :54 EDT 2024 Systolic Blood Pressure 139.00 mm[Hg] Tue 17 09:56:21 EDT 2024 Diastolic Blood Pressure 69.00 mm[Hg] Tue 17 09:56:21 EDT 2024 Systolic Blood Pressure 139.00 mm[Hg] TueDec 24 09:56:21 EDT 2024 Diastolic Blood Pressure 69.00 mm[Hg] Tue 17 09:56:21 EDT 2024 Heart Rate 71.00 /min Tue 17 09:56 :21 EDT 2024 Heart Rate 71.00 /min Tue 17 09:56 :21 EDT 2024 Body temperature 97.40 [degF] TueDec 24 09:5 6:21 EDT 2024 Respiratory rate 18.00 /min TueDec 24 09:5 6:21 EDT 2024 Pulse Oximetry 98.00 % Tue 17 09:56 :21 EDT 2024 Systolic Blood Pressure 132.00 mm[Hg] Tue 17 01:22:45 EDT 2024 Diastolic Blood Pressure 60.00 mm[Hg] Tue 17 01:22:45 EDT 2024 Heart Rate 72.00 /min Tue 17 01:22 :45 EDT 5 Body temperature 97.40 [degF] Mon Dec 17 01:2 2:45 EDT 5 Respiratory rate 18.00 /min Tue 17 01:2 2:45 EDT 2024 Pulse Oximetry 98.00 % Mon Dec 17 01:22 :45 EDT 2024 Systolic Blood Pressure 132.00 mm[Hg] Sun Mar 16 21:32:34 EDT 2024 Diastolic Blood Pressure 60.00 mm[Hg] Sun Mar 16 21:32:34 EDT 2024 Heart Rate 72.00 /min Sun Mar 16 21:32 :34 EDT 2024 Body weight 117.80 [lb_av] Sun Mar 16 13:11 :30 EDT 2024 Systolic Blood Pressure 122.00 mm[Hg] Sun Mar 16 08:47:54 EDT 2024 Diastolic Blood Pressure 72.00 mm[Hg] Sun Mar 16 08:47:54 EDT 2024 Heart Rate 68.00 /min Sun Mar 16 08:47 :54 EDT 2024 Body temperature 97.90 [degF] Sun Mar 16 08:4 7:54 EDT 2024 Respiratory rate 18.00 /min Sun Mar 16 08:4 7:54 EDT 2024 Pulse Oximetry 99.00 % Sun Mar 16 08:47 :54 EDT 2024 Systolic Blood Pressure 122.00 mm[Hg] Sun Mar 16 08:47:02 EDT 2024 Diastolic Blood Pressure 72.00 mm[Hg] Sun Mar 16 08:47:02 EDT 2024 Heart Rate 68.00 /min Sun Mar 16 08:47 :02 EDT 2024 Systolic Blood Pressure 102.00 mm[Hg] Sun Mar 16 00:58:19 EDT 2024 Diastolic Blood Pressure 60.00 mm[Hg] Sun Mar 16 00:58:19 EDT 2024 Heart Rate 70.00 /min Sun Mar 16 00:58 :19 EDT 2024 Body temperature 97.80 [degF] Sun Mar 16 00:5 8:19 EDT 2024 Respiratory rate 18.00 /min Sun Mar 16 00:5 8:19 EDT 2024 Pulse Oximetry 97.00 % Sun Mar 16 00:58 :19 EDT 2024 Systolic Blood Pressure 134.00 mm[Hg] Sat Mar 15 21:14:49 EDT 2024 Diastolic Blood Pressure 71.00 mm[Hg] Sat Mar 15 21:14:49 EDT 2024 Heart Rate 74.00 /min [facility] Mar 15 21:14 :49 EDT 2024 Body weight 115.40 [lb_av] [facility] Mar 15 11:57 :16 EDT 2024 Systolic Blood Pressure 130.00 mm[Hg] [facility] Mar 15 09:35:07 EDT 2024 Diastolic Blood Pressure 75.00 mm[Hg] [facility] Mar 15 09:35:07 EDT 2024 Heart Rate 75.00 /min [facility] Mar 15 09:35 :07 EDT 2024 Body temperature 98.00 [degF] [facility] Mar 15 09:3 5:07 EDT 2024 Respiratory rate 18.00 /min [facility] 15 09:3 5:07 EDT 2024 Pulse Oximetry 95.00 % [facility] Mar 15 09:35 :07 EDT 2024 Systolic Blood Pressure 130.00 mm[Hg] [facility] Mar 15 09:21:45 EDT 2024 Diastolic Blood Pressure 75.00 mm[Hg] [facility] 15 09:21:45 EDT 2024 Heart Rate 75.00 /min [facility] 15 09:21 :45 EDT 2024 Systolic Blood Pressure 128.00 mm[Hg] [facility] Dec 15 03:23:08 EDT 2024 Diastolic Blood Pressure 72.00 mm[Hg] [facility] Dec 15 03:23:08 EDT 2024 Heart Rate 76.00 /min [facility] Dec 15 03:23 :08 EDT 2024 Body temperature 97.70 [degF] [facility] Dec 15 03:2 3:08 EDT 2024 Respiratory rate 22.00 /min [facility] Dec 15 03:2 3:08 EDT 2024 Pulse Oximetry 100.00 % [facility] Dec 15 03:23 :08 EDT 2024 Systolic Blood Pressure 128.00 mm[Hg] Tue 14 23:11:58 EDT 2024 Diastolic Blood Pressure 72.00 mm[Hg] Tue 14 23:11:58 EDT 2024 Heart Rate 76.00 /min Tue 14 23:11 :58 EDT 2024 Systolic Blood Pressure 127.00 mm[Hg] Tue 14 12:14:39 EDT 2024 Diastolic Blood Pressure 75.00 mm[Hg] TueDec 21 12:14:39 EDT 2024 Heart Rate 79.00 /min TueDec 21 12:14 :39 EDT 2024 Body temperature 97.30 [degF] Fri Mar 14 12:1 4:39 EDT 5 Respiratory rate 18.00 /min Tue 14 12:1 4:39 EDT 2024 Pulse Oximetry 98.00 % Tue 14 12:14 :39 EDT 2024 Systolic Blood Pressure 127.00 mm[Hg] Tue 14 09:45:11 EDT 5 Diastolic Blood Pressure 75.00 mm[Hg] Tue 14 09:45:11 EDT 2024 Heart Rate 78.00 /min Tue 14 09:45 :11 EDT 2024 Systolic Blood Pressure 118.00 mm[Hg] Tue 14 01:55:40 EDT 2024 Diastolic Blood Pressure 75.00 mm[Hg] Tue 14 01:55:40 EDT 2024 Heart Rate 94.00 /min Tue 14 01:55 :40 EDT 2024 Body temperature 97.90 [degF] Tue 14 01:5 5:40 EDT 2024 Respiratory rate 20.00 /min Tue 14 01:5 5:40 EDT 2024 Pulse Oximetry 95.00 % Tue 14 01:55 :40 EDT 2024 Systolic Blood Pressure 118.00 mm[Hg] Tricia Mar 13 22:11:48 EDT 2024 Diastolic Blood Pressure 75.00 mm[Hg] Tricia Mar 13 22:11:48 EDT 2024 Heart Rate 94.00 /min Tricia Mar 13 22:11 :48 EDT 2024 Body weight 113.20 [lb_av] [facility] Mar 13 16:13 :39 EDT 2024 Systolic Blood Pressure 129.00 mm[Hg] Tricia Mar 13 09:52:16 EDT 2024 Diastolic Blood Pressure 69.00 mm[Hg] [facility] Mar 13 09:52:16 EDT 2024 Heart Rate 70.00 /min Tricia Mar 13 09:52 :16 EDT 5 Body temperature 97.40 [degF] Tricia Mar 13 09:5 2:16 EDT 2024 Respiratory rate 20.00 /min Tricia Mar 13 09:5 2:16 EDT 2024 Pulse Oximetry 97.00 % [facility] Dec 13 09:52 :16 EDT 2024 Systolic Blood Pressure 129.00 mm[Hg] Tricia Mar 13 09:08:18 EDT 2024 Diastolic Blood Pressure 69.00 mm[Hg] Tricia Mar 13 09:08:18 EDT 2024 Heart Rate 70.00 /min TueDec 20 09:08 :18 EDT 2024 Systolic Blood Pressure 124.00 mm[Hg] TueDec 20 00:19:35 EDT 2024 Diastolic Blood Pressure 56.00 mm[Hg] TueDec 20 00:19:35 EDT 2024 Heart Rate 75.00 /min TueDec 20 00:19 :35 EDT 2024 Body temperature 97.80 [degF] Tricia Dec 20 00:1 9:35 EDT 2024 Respiratory rate 20.00 /min Tricia Dec 20 00:1 9:35 EDT 2024 Pulse Oximetry 98.00 % TueDec 20 00:19 :35 EDT 2024 Systolic Blood Pressure 124.00 mm[Hg] TueDec 19 22:07:21 EDT 2024 Diastolic Blood Pressure 56.00 mm[Hg] TueDec 19 22:07:21 EDT 2024 Heart Rate 75.00 /min TueDec 19 22:07 :21 EDT 2024 Systolic Blood Pressure 131.00 mm[Hg] TueDec 19 13:29:00 EDT 2024 Diastolic Blood Pressure 72.00 mm[Hg] TueDec 19 13:29:00 EDT 2024 Heart Rate 67.00 /min TueDec 19 13:29 :00 EDT 2024 Body temperature 97.70 [degF] TueDec 19 13:2 9:00 EDT 2024 Respiratory rate 16.00 /min TueDec 19 13:2 9:00 EDT 2024 Pulse Oximetry 95.00 % TueDec 19 13:29 :00 EDT 2024 Reason for Referral "
--- NOTE | 2025-02-25 01:20 | ECG_ITS ---
Test Date: 2025-02-25 01:26:35 Measurements Intervals [place] Rate: 63 P: 48 AR: 146 QRS: 36 QRSD: 91 T: 41 QT: 395 QTc: 406 Interpretive Statements SINUS RHYTHM Compared to ECG 02/24/2025 22:40:27 No significant changes Electronically Signed On 02-25-2025 10:47:56 CDT by Todd Tripp M.D.
[2025-02-25 01:57] LABS: Troponin I < 0.012 ng/mL (0.000-0.034)
[2025-02-25 02:17] LABS: D Dimer 0.86 ug/mL (<0.48)
--- NOTE | 2025-02-25 03:41 | ED_ITS ---
HPI - Chest Pain General Chief Complaint: Chest Pain Stated Complaint: Dizziness, elevated bp this week Time Seen by Provider: 02/25/25 00:52 History of Present Illness HPI narrative: patient earlier tonight started having pain to L chest; went away then came back, associated with some RICARDO. Never had anything like this before. Related Data Allergies Allergy/AdvReac Type Severity Reaction Status Date / Time NKFA Allergy Unknown no known Uncoded 02/24/25 22:36 allergies NA Allergy Other Uncoded 02/24/25 22:36 Review of Systems 2 Review of Systems: All systems reviewed & are unremarkable except as noted in HPI and below Exam 2 Narrative: EXAMINATION OF ORGAN SYSTEMS/BODY AREAS: Constitutional: Vital signs per nursing GENERAL:[No acute distress, non-toxic appearing.] HEAD: Normal with no signs of head trauma. EYES: EOMI, conjunctiva normal ENT: Hearing grossly intact LUNGS: Nonlabored breathing. CTAB HEART: [Regular rate and rhythm]; reproducible tenderness to L chest ABD: [Soft], [nontender to palpation] EXT: Normal range of motion SKIN: [No rashes or lesions.] NEURO: [Alert and oriented x 3. No gross focal sensory or strength deficits.] PSYCH: Normal affect Course Vital Signs Vital signs: Vital Signs Temperature 97.6 F 02/24/25 22:30 Pulse Rate 65 02/24/25 22:30 Respiratory Rate 14 02/24/25 22:30 Blood Pressure 108/58 L 02/24/25 22:30 Pulse Oximetry 100 02/24/25 22:30 Oxygen Delivery Room Air 02/24/25 22:30 Temperature 97.6 F 02/24/25 22:30 Pulse Rate 76 02/25/25 03:51 Respiratory Rate 16 02/25/25 03:51 Blood Pressure 141/69 H 02/25/25 01:31 Pulse Oximetry 98 02/25/25 03:00 Oxygen Delivery Room Air 02/24/25 22:30 MDM - Chest Pain MDM Narrative Medical decision making narrative: ED COURSE AND MEDICAL DECISION MAKINF presenting with chest pain. EKG done in triage negative for acute ischemic changes. Cardiac workup is initiated. EKG: Performed in triage and interpreted by me. Normal sinus rhythm. Rate 62. Normal axis. [place] normal. QRS duration normal. QTc normal. No pathologic Q waves. No ST segment elevation or depression to suggest acute ischemia. No RV strain pattern. HEART score is 3 with no acute ischemic changes on EKG and negative troponin making ACS unlikely. DDimer + so CT-PE obtained, showing possible PNA. Findings discussed with patient and family at bedside, will start antibiotics at this time On repeat evaluation just prior to discharge, the patient is no acute distress. I had a long discussion with the patient/daughter and with shared decision making, they are comfortable with outpatient management. They was given clear return instructions by myself in person as well as on discharge paperwork. Lab Data 02/24/25 22:42 02/24/25 22:42 Labs: Lab Results 02/24/25 02/25/25 Range/Units 22:42 01:28 WBC 7.5 (4.5-10.0) K/mm3 RBC 4.23 (4.2-5.4) M/mm3 Hgb 12.3 (12.0-15.0) g/dL Hct 38.2 (37.0-47.0) % MCV 90.3 (80-100) fl MCH 29.1 (26-34) pg MCHC 32.2 (32-36) g/dl RDW 14.4 (11.5-14.5) % Plt Count 260 (150-375) k/mm3 MPV 9.3 (7.4-10.4) fl Immature Gran % (Auto) 0.1 (0-0.5) % Neut % (Auto) 55.3 (45.5-73.1) % Lymph % (Auto) 32.1 (18.3-44.2) % [place] % (Auto) 8.7 H (2.6-8.5) % Eos % (Auto) 2.5 (0-4.4) % Baso % (Auto) 1.3 H (0.2-1.2) % Lymph # (Auto) 2.40 (0.9-3.2) K/mm3 [place] # (Auto) 0.7 H (0.1-0.6) K/mm3 Eos # (Auto) 0.2 (0-0.3) K/mm3 Baso # (Auto) 0.1 (0.0-0.1) K/mm3 Abs Immat Gran (auto) 0.01 (0.00-0.031) K/mm3 Absolute Neuts (auto) 4.1 (1.3-6.7) K/mm3 Absolute Nucleated RBC 0.000 (0.0-0.012) K/mm3 Nucleated RBC % 0.0 (0.0-0.2) % PT 13.7 (11.1-14.7) Seconds INR 1.0 APTT 31.0 (22.3-36.8) Seconds D-Dimer 0.86 H (<0.48) ug/mL Sodium 139 (137-145) mmol/L Potassium 4.1 (3.4-5.0) mmol/L Chloride 105 (98-107) mmol/L Carbon Dioxide 27 (22-30) mmol/L Anion Gap 7 (4-12) mmol/L BUN 34 H (7-17) mg/dL Creatinine 0.79 (0.7-1.0) mg/dL Estim Creat Clear Calc Not Reportable Estimated GFR > 60 (59 - ) Glucose 99 (65-110) mg/dL Calcium 9.2 (8.4-10.2) mg/dL Total Bilirubin 0.2 (0.2-1.3) mg/dL AST 27 (14-36) U/L ALT 17 (6-35) U/L Alkaline Phosphatase 112 (38-126) U/L Troponin I < 0.012 < 0.012 (0.000-0.034) ng/mL Total Protein 7.0 (6.3-8.2) g/dL Albumin 4.0 (3.5-5.1) g/dL Lipase 142 (23-300) U/L Discharge Plan Discharge Clinical Impression: Atypical chest pain Patient Disposition: Home Condition: Stable Instructions: Antibiotic Form, Chest Pain (ED), Pneumonia (ED) Additional Instructions: Please follow up with your doctor; you can always return for any further issues. Take the antibiotics as prescribed. Patient Language: Kinyarwanda Prescriptions: New azithromycin 250 mg tablet 250 mg PO DAILY 4 Days Qty: 4 0RF Rx Instructions: start on day 2 of therapy Follow-up/Referrals: Robert,Nancy Weaver, SENIOR CL[employer]ICAL [employer] PROGRAMMER [Primary Care Provider] -
[2025-02-25] MEDS: AZITHROMYCIN 250 MG TABLET 500 MG PO (03:48)
== END 2025-02-25 04:09 | disposition home or self-care (01) ==
PROVIDERS: Emergency Provider Emergency Medicine
DX: R07.89 Other chest pain (principal)
CPT/HCPCS: 36415; 71045; 71275; 80053; 83690; 84484; 85025; 85380; 85610; 85730; 93005; 99284; A9270; Q9967

== ENCOUNTER 2025-04-30 16:03 | Emergency (ER) | payer MEDICARE, SELFPAY ==
--- NOTE | ~2025-04-30 | XR_ITS ---
EXAM: XR shoulder RT min 2V DATE: 04/30/2025 16:59 HISTORY: pain after injury . COMPARISON: None available. FINDINGS: Osteopenia. No fracture or dislocation. No lytic or blastic lesion. 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 Severe subacromial narrowing, as can be seen with rotator cuf f pathology, with acromial undersurface remodeling. 9 mm ossific body over the superior joint space, likely loose body. No erosion or periosteal change. Soft tissues within normal limits. Scattered smal l tubular radiopacities project over the chest, presumably related to external artifact IMPRESSION: No acute osseous finding in the right shoulder. Reviewed, dictated and finalized at location K.
--- OUTSIDE RECORDS SUMMARY | 2025-04-30 16:06 | XMS_ITS | Clinical Summary ---
Author Organization [facility] Address [facility] [place] [address] Care Team Providers Care Refrigerated Cargo Clerk Name Role Phone Robert Nancy AHMADI Primary Care Provider [phone] Allergies No known active allergies Encounters Date Type Department Care Team Description 03/08/2025 12:35 PM CDT - 03/08/2025 3:13 PM CDT Emergency [facility] Emergency Room [address] [place] [id number] Hunter Martinez MD Palpitations Discharge Disposition: Home or Self Care (Routine Discharge) 03/08/2025 Travel from Last 3 Months Social History Tobacco Use Types Packs/Day Years Used Date Smoking Tobacco: Never Assessed Comments Unknown Sex and Gender Information Value Date Recorded Sex Assigned at Female 03/08/2025 12:39 PM CDT Legal Sex Female 12:27 PM CDT Gender Identity Not on file Sexual Orientation Not on file Last Filed Vital Signs Vital Sign Reading Time Taken Comments Blood Pressure 124/98 03/08/2025 2:53 PM CDT Pulse 67 03/08/2025 2:53 PM CDT Temperature 36.4 C (97.5 F) 03/08/2025 12:40 PM CDT Respiratory Rate 18 03/08/2025 2:53 PM CDT Oxygen Saturation 98% 03/08/2025 2:53 PM CDT Inhaled Oxygen Concentration - - Weight 49.9 kg (110 lb) 03/08/2025 12:40 PM CDT Height 149.9 cm (4' 11) 03/08/2025 12:40 PM CDT Body Mass Index 22.22 03/08/2025 12:40 PM CDT Plan of Treatment Health Maintenance Due Date Last Done Comments DTaP, Tdap and Td Vaccines (1 - Tdap) 1959 Annual Medicare Wellness Visit 2004 RSV Immunization or 60+ Years (1 - 1-dose 75+ series) 2014 COVID-19 Vaccine (5 - season) 2024 06/12/2023, 09/21/2021, 12/31/2020, Additional history exists Pneumococcal Vaccine: 50+ Years Completed 07/06/2019, 02/16/2012 Zoster Vaccines Completed 10/06/2019, 07/06/2019 Meningococcal B Vaccine Aged Out No l onger eligible based on patient's age to complete this topic Meningococcal Vaccine Aged Out No robert shira eligible based on patient's age to complete this topic RSV Immunizations Under 20 Months Aged Out No longer eligible based on patient's age to complete this topic Procedures Procedure Name Priority Date/Time Associated Diagnosis Comments URINALYSIS, AUTO, COMPLETE STAT 03/08/2025 2:45 PM CDT CTA CHEST PE PROTOCOL STAT 03/08/2025 2:09 PM CDT XR CHEST PORTABLE STAT 03/08/2025 1:1 7 PM CDT ECG 12-LEAD STAT 03/08/2025 1:12 PM CDT D-DIMER, QUANTITATIVE STAT 03/08/2025 1:10 PM CDT TSH W/REFLEX STAT 03/08/2025 1:10 PM CDT PRO-BRAIN NATRIURETIC PEPTIDE STAT 03/08/2025 1:10 PM CDT MAGNESIUM STAT 03/08/2025 1:10 PM CDT TROPONIN, QUANT STAT 03/08/2025 1:10 PM CDT COMPREHENSIVE METABOLIC PANEL STAT 03/08/2025 1:10 PM CDT CBC W/DIFF AUTOMATED STAT 03/08/2025 1:10 PM CDT from Last 3 Months Results * URINALYSIS, AUTO, COMPLETE (03/08/2025 2:45 PM CDT) COLOR (U) YELLOW 03/08/2025 2:59 PM CDT [facility] TRANSPARENCY CLEAR 03/08/2025 2:59 PM CDT [facility] SPECIFIC GRAVITY (U) 1.010 1.000 - 1.030 03/08/2025 2:59 PM CDT [facility] U PH 6.0 5.0 - 9.0 03/08/2025 2:59 PM CDT [facility] LEUKOCYTES (U) NEGATIVE NEGATIVE 03/08/2025 2:59 PM CDT [facility] NITRITES NEGATIVE NEGATIVE 03/08/2025 2:59 PM CDT [facility] PROTEIN RANDOM (U) NEGATIVE NEGATIVE 03/08/2025 2:59 PM CDT [facility] GLUCOSE (U) NEGATIVE NEGATIVE 03/08/2025 2:59 PM CDT [facility] KETONES MG/DL (U) NEGATIVE NEGATIVE 03/08/2025 2:59 PM CDT [facility] BILIRUBIN (U) NEGATIVE NEGATIVE 03/08/2025 2:59 PM CDT [facility] BLOOD (U) NEGATIVE NEGATIVE 03/08/2025 2:59 PM CDT [facility] WBC/HPF NONE SEEN 0 - 5 /HPF 03/08/2025 2:59 PM CDT [facility] RBC/HPF NONE SEEN 0 - 5 /HPF 03/08/2025 2:59 PM CDT [facility] EPI/HPF MODERATE /HPF 03/08/2025 2:59 PM CDT [facility] URINE SPECIMEN OBTAINED BY CLEAN CATCH PROCEDURE / Unknown 03/08/2025 2:45 PM CDT Hunter Martinez MD URINE ORDERABLES Final Result [facility] [address] [place] [address], * CTA CHEST PE PROTOCOL (03/08/2025 2:09 PM CDT) Anatomical Region Laterality Modality Chest Computed Tomogra phy 03/08/2025 2:27 PM CDT Impressions 03/08/2025 2:34 PM CDT IMPRESSION: No pulmonary embolism in the main pulmonary arteries or proximal segmental branches. Tree-in-bud nodularity right upper lung. This is suspected to be due to infectious change. Follow-up in 3 months recommended. Air trapping in the right left lung. Scarring in the left lung anteriorly. This could relate to prior infectious process. This can be seen with inhalational exposures. If the patient has an inhalational exposure high-resolution chest CT would be recommended for further evaluation. Ordered By: HUNTER MARTINEZ Interpreted By: Anil Justice MD, 03/08/2025 2:27 PM Narrative 03/08/2025 2:34 PM CDT [facility] [address] [facility] [place] [id number] Procedure(s): CTA CHEST PE PROTOCOL Date of service: 03/08/2025 2:09 PM Provided clinical information: 84 years, Female, elevated dimer, sob, Procedure and materials: Helical images of the chest are obtained from superior to the thoracic inlet to inferior to the costophrenic angles. Examination is performed after intravenous contrast. 75 mL Isovue-370. Postprocessing is performed. 3-D MIP images obtained. A dose lowering technique was used for this procedure, which may include, but is not limited to, dose reduction technique, automated exposure control, iterative reconstruction, ALARA (As Low As Reasonably Achievable), or Image Gently techniques. Comparison studies: Chest radiograph March 08, 2025 1:20 PM. Findings: Axillae: Left shoulder effusion is present. Mediastinum/Clair:No pulmonary embolism present in the main pulmonary arteries or segmental branches. No enlarged mediastinal or hilar lymph nodes. Lung Parenchyma:Tree-in-bud nodularity is present within the right upper lobe. This is concerning for an underlying infectious focus. This could be subclinical. Diffuse air trapping is present in the right left lung. Atelectatic changes are present within the right lower lobe. Scarring in the left lung anteriorly. This could relate to prior infectious process. This can be seen with inhalational exposures. If the patient has an inhalational exposure high-resolution chest CT would be recommended for further evaluation. Visualized Upper abdominal structures:Small cyst within the interpolar left kidney this measures approximately 11 Hounsfield units. This is recommended per current imaging consensus recommendations. Nonobstructing left nephrolithiasis. Prior cholecystectomy. Bone Windows:Significant thoracic spine kyphosis. Procedure Note Anil Justice MD - 03/08/2025 [facility] [address] [address] [place] [address] Procedure(s): CTA CHEST PE PROTOCOL Date of service: 03/08/2025 2:09 PM Provided clinical information: 84 years, Female, elevated dimer, sob, Procedure and materials: Helical images of the chest are obtained fromsuperior to the thoracic inlet to inferior to the costophrenic angles.Examination is performed after intravenous contrast. 75 mL Isovue-370. Postprocessing is performed. 3-D MIP images obtained. A dose lowering technique was used for this procedure, which may include,but is not limited to, dose reduction technique, automated exposurecontrol, iterative reconstruction, ALARA (As Low As ReasonablyAchievable), or Image Gently techniques. Comparison studies: Chest radiograph March 08, 2025 1:20 PM. Findings: Axillae: Left shoulder effusion is present. Mediastinum/Clair:No pulmonary embolism present in the main pulmonaryarteries or segmental branches. No enlarged mediastinal or hilar lymphnodes. Lung Parenchyma:Tree-in-bud nodularity is present within the right upperlobe. This is concerning for an underlying infectious focus. This could besubclinical. Diffuse air trapping is present in the right left lung.Atelectatic changes are present within the right lower lobe. Scarring in the left lung anteriorly. This could relate to priorinfectious process. This can be seen with inhalational exposures. If thepatient has an inhalational exposure high-resolution chest CT would berecommended for further evaluation. Visualized Upper abdominal structures:Small cyst within the interpolarleft kidney this measures approximately 11 Hounsfield units. This isrecommended per current imaging consensus recommendations. Nonobstructing left nephrolithiasis. Prior cholecystectomy. Bone Windows:Significant thoracic spine kyphosis. IMPRESSION: No pulmonary embolism in the main pulmonary arteries or proximal segmentalbranches. Tree-in-bud nodularity right upper lung. This is suspected to be due toinfectious change. Follow-up in 3 months recommended. Air trapping in the right left lung. Scarring in the left lung anteriorly. This could relate to priorinfectious process. This can be seen with inhalational exposures. If thepatient has an inhalational exposure high-resolution chest CT would berecommended for further evaluation. Ordered By: HUNTER MARTINEZ Interpreted By: Anil Justice MD, 03/08/2025 2:27 PM Hunter Martinez MD CT Final R esult * XR CHEST PORTABLE (03/08/2025 1:17 PM CDT) Anatomical Region Laterality Modality Chest Radiographic Iman ging 03/08/2025 1:22 PM CDT Impressions 03/08/2025 1:22 PM CDT IMPRESSION: Negative chest Ordered By: HUNTER MARTINEZ Interpreted By: Kwadwo Pickering MD, 03/08/2025 1:22 PM Narrative 03/08/2025 1:22 PM CDT [facility] [address] [place] [address] SINGLE VIEW OF THE CHEST Clinical history: Shortness of breath Comparison: None A single view of the chest demonstrates the cardiac silhouette to be normal in size and appearance. The pulmonary vessels appear normal. The Lungs are clear. No consolidations or effusions are seen. Procedure Note Kwadwo Pickering MD - 03/08/2025 [facility] [address] [place] [address] SINGLE VIEW OF THE CHEST Clinical history: Shortness of breath Comparison: None A single view of the chest demonstrates the cardiac silhouette to benormal in size and appearance. The pulmonary vessels appear normal. TheLungs are clear. No consolidations or effusions are seen. 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: : 1940 Requested By: HUNTER MARTINEZ Order Number: [id number] Reading MD: Bhanu De Leon Measurements Intervals [place] Rate: 64 P: 49 NJ: 136 QRS: 25 QRSD: 92 T: 35 QT: 404 QTc: 419 Interpretive Statements SINUS RHYTHM No previous ECG available for comparison Procedure Note Bhanu De Leon MD - 03/09/2025 [facility] Test Date: 2025-03-08 Pat Name: HAWK SHERIFF Department: 85 Room: [place] [address] Gender: Female Emissions 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 Technician: : 1940 Requested By: HUNTER MARTINEZ Order Number: [id number] Reading MD: Bhanu De Leon Measurements Intervals [place] Rate: 64 P: 49 NJ: 136 QRS: 25 QRSD: 92 T: 35 QT: 404 QTc: 419 Interpretive Statements SINUS RHYTHM No previous ECG available for comparison us Hunter Martinez MD ECG ORDERABLES Final R esult [facility] ([facility]) RAD * TSH W/REFLEX (03/08/2025 1:10 PM CDT) [facility] TSH 2.005 0.358 - 3.74 uIU/ML 03/08/2025 1:41 PM CDT [facility] Comment: HIGH DOSES OF BIOTIN MAY INTERFERE WITH THIS TEST RESULT. CORRELATION TO CLINICAL HISTORY AND PRESENTATION RECOMMENDED. FREE T4 NOT INDICATED 03/08/2025 1:10 PM CDT us Hunter Martinez MD LABORATORY Final R esult Performing Organization Address City/[facility]/ZIP Co de Phone Number [facility] [address] [place] [address], [place] [phone] * PRO-BRAIN NATRIURETIC PEPTIDE (03/08/2025 1:10 PM CDT) Pathologist [facility] PRO-B TYPE NATRIURETIC PEPTIDE 383 <450 PG/ML 03/08/2025 1:41 PM CDT [facility] Comment: CUT POINTS ESTABLISHED BY [employer] ON NT PROBNP (ICON) STUDY (2006). AGE INDEPENDENT: <300 PG/ML HAS A 99% NEGATIVE PREDICTIVE VALUE FOR EXCLUDING ACUTE CHF <50 YEARS: >450 PG/ML IS CONSISTENT WITH ACUTE CHF 50-75 YEARS: >900 PG/ML IS CONSISTENT WITH ACUTE CHF >75 YEARS: >1800 PG/ML IS CONSISTENT WITH ACUTE CHF IN PATIENTS WITH RENAL INSUFFICIENCY (GFR <60), >1200 PG/ML YIELDS A DIAGNOSTIC SENSITIVITY AND SPECIFICITY OF 89% AND 72% FOR ACUTE CHF. 03/08/2025 1:10 PM CDT us Hunter Martinez MD LABORATORY Final R esult [facility] [address] [place] [address], * (ABNORMAL) COMPREHENSIVE METABOLIC PANEL (03/08/2025 1:10 PM CDT) GLUCOSE 88 70 - 99 MG/DL 03/08/2025 1:41 PM CDT [facility] BUN 24(H) 7 - 18 MG/DL 03/08/2025 1:41 PM CDT [facility] CREATININE S/P/B 0.71 0.55 - 1.02 MG/DL 03/08/2025 1:41 PM CDT [facility] SODIUM S/P/B 138 136 - 145 MMOL/L 03/08/2025 1:41 PM CDT [facility] POTASSIUM S/P/B 4.2 3.5 - 5.1 MMOL/L 03/08/2025 1:41 PM CDT [facility] CHLORIDE S/P/B 103 100 - 108 MMOL/L 03/08/2025 1:41 PM CDT [facility] CO2 27.9 21 - 32 MMOL/L 03/08/2025 1:41 PM CDT [facility] CALCIUM S/P/B 9.0 8.5 - 10.1 MG/DL 03/08/2025 1:41 PM T [facility] BILIRUBIN TOTAL S/P/B 0.4 0.2 - 1.2 MG/DL 03/08/2025 1:41 PM CDT [facility] TOTAL PROTEIN S/P/B 6.8 6.4 - 8.2 G/DL 03/08/2025 1:41 PM T [facility] ALBUMIN S/P/B 3.2(L) 3.4 - 5.0 G/DL 03/08/2025 1:41 PM T [facility] AST 16 15 - 37 U/L 03/08/2025 1:41 PM T [facility] ALT 12(L) 14 - 55 U/L 03/08/2025 1:41 PM T [facility] ALKALINE PHOSPHATASE S/P/B 96 50 - 136 U/L 03/08/2025 1:41 PM T [facility] ANION GAP 7.1 5 - 15 MMOL/L 03/08/2025 1:41 PM T [facility] BUN CREATININE RATIO 33.8(H) 6 - 26 03/08/2025 1:41 PM [facility] A/G RATIO 0.9(L) 1.0 - 2.0 RATIO 03/08/2025 1:41 PM [facility] GFR ESTIMATE 83(L) >90 ML/MIN/1.7 3 M2 03/08/2025 1:41 PM T [facility] Comment: NOTE: eGFR is not calculated for patients <18 years of age. This is an estimated GFR calculation using the new CKD EPI creatinine equation without race and so does not require a correction factor for race. This estimated GFR should not be used for calculating drug doses. 03/08/2025 1:10 PM CDT us Hunter Martinez MD LABORATORY Final R esult [facility] [address] [place] [address], [place] [phone] * (ABNORMAL) D-DIMER, QUANTITATIVE (03/08/2025 1:10 PM CDT) [facility] D-DIMER 1,562(H) 0 - 500 ng{FEU}/mL 03/08/2025 1:30 PM CDT [facility] Comment: D-Dimer values less than or equal to 500 ng/mL FEU have a negative predictive value of >95% for exclusion of deep vein thrombosis and pulmonary embolism. In patients over 50 (who tend to have higher normal baseline D-Dimer values), recent studies suggest age-adjusted D-Dimer cutoff values (calculated as: age [years] x 10 ng/mL) result in equivalent outcomes and no additional false negative findings. 03/08/2025 1:10 PM CDT us Hunter Martinez MD LABORATORY Final R esult [facility] [address] [place] [address], * (ABNORMAL) CBC W/DIFF AUTOMATED (03/08/2025 1:10 PM CDT) [facility] WBC 8.76 4.4 - 11.0 x10'3/uL 03/08/2025 1:15 PM CDT [facility] RBC 4.33(L) 4.50 - 5.10 x10'6/uL 03/08/2025 1:15 PM CDT [facility] HGB 12.7 12.3 - 15.3 G/DL 03/08/2025 1:15 PM CDT [facility] HCT 38.7 35.9 - 44.6 % 03/08/2025 1:15 PM CDT [facility] MCV 89.4 80.0 - 96.0 FL 03/08/2025 1:15 PM CDT [facility] MCH 29.3 25.3 - 30.9 PG 03/08/2025 1:15 PM CDT [facility] MCHC 32.8 31.0 - 34.1 G/DL 03/08/2025 1:15 PM CDT [facility] RDW 14.5 12.4 - 15.1 % 03/08/2025 1:15 PM CDT [facility] PLT 239 151 - 353 x10'3/uL 03/08/2025 1:15 PM CDT [facility] MPV 9.8 9.6 - 12.0 FL 03/08/2025 1:15 PM CDT [facility] RBC MORPHOLOGY NORMAL 03/08/2025 1:15 PM CDT [facility] PLT MORPH. NORMAL 03/08/2025 1:15 PM CDT [facility] WBC MORPHOLOGY NORMAL 03/08/2025 1:15 PM CDT [facility] LYMPHOCYTES % 31.2 15.8 - 45.0 % 03/08/2025 1:15 PM CDT [facility] NEUTROPHILS % 58.5 42.1 - 71.9 % 03/08/2025 1:15 PM CDT [facility] MONOCYTES % 7.8 5.7 - 12.5 % 03/08/2025 1:15 PM CDT [facility] EOSINOPHILS 1.3 0.0 - 5.6 % 03/08/2025 1:15 PM CDT [facility] BASOPHILS 1.0 0.0 - 1.3 % 03/08/2025 1:15 PM CDT [facility] ABS. NEUTROPHILS 5.13 1.40 - 6.00 x10'3/uL 03/08/2025 1:15 PM CDT [facility] IMMATURE GRANS % 0.2 0.0 - 0.5 % 03/08/2025 1:15 PM CDT [facility] ABS. LYMPHOCYTES 2.73 0.80 - 4.70 x10'3/uL 03/08/2025 1:15 PM CDT [facility] 03/08/2025 1:10 PM CDT Hunter Martinez MD LABORATORY Final R esult Performing Organization Address City/[facility]/ZIP Co de Phone Number [facility] [address] [place] [address], [place] [phone] * TROPONIN, QUANT (03/08/2025 1:10 PM CDT) [facility] TROPONIN I HIGH SENSITIVITY 6 0 - 50 ng/L 03/08/2025 1:38 PM CDT [facility] Comment: HIGH DOSES OF BIOTIN, TROPONIN-SPECIFIC AUTOANTIBODIES, AND ANTIBODY THERAPY CONTAINING HAMA MAY INTERFERE WITH THIS TEST RESULT. CORRELATION TO CLINICAL HISTORY AND PRESENTATION RECOMMENDED. 03/08/2025 1:10 PM CDT Hunter Martinez MD LABORATORY Final R esult Performing Organization Address [facility] Co de Phone Number [facility] [address] [place] [address], [place] [phone] * (ABNORMAL) MAGNESIUM (03/08/2025 1:10 PM CDT) Pathologist [facility] MAGNESIUM 1.6(L) 1.8 - 2.4 MG/DL 03/08/2025 1:41 PM CDT [facility] 03/08/2025 1:10 PM CDT Hunter Martinez MD LABORATORY Final R esult Performing Organization Address City/[facility]/ZIP Co de Phone Number [facility] [address] [place] [address], [place] [phone] from Last 3 Months Insurance MEDICARE [facility] Care Teams Refrigerated Cargo Clerk Relationship Specialty Start Date End Date aNncy Jones NP [address] [place] [phone] PCP - General NURSE PRACTITIONER 03/08/25
--- OUTSIDE RECORDS SUMMARY | 2025-04-30 16:06 | XMS_ITS | Data Portability ---
Author Organization [facility] [employer], Main Office Address [address] [place] [address] Care Team Providers Care Installment Loan Collector Name Role Phone VIVIANE GAY Primary Care Provider VIVIANE GAY Referring Provider VIDAL LINDSAY Primary Care Provider Assessment Encounter Date Assessment Date Assessment LastModified by Organization Details LastModified Time 11/20/2024 11/20/2024 lower abdominal wound, granulating. We [...] Details Last Modified Time Details Appointments Any 30 2024 03:30P DINA Campos Not available Not available Not available Lab None recorded. Referral None recorded. Procedures None recorded. Surgeries None recorded. Imaging None recorded. Medication Orders clobetaso l 0.05 % scalp solution 2024 025 JAY [facility] [address], [address] [place] [address], [address], 03/12/2025 14:18:47 ciproflox acin 500 mg tablet 2024 025 [facility] [address], [address] [place] [address], [address], 03/12/2025 10:35:21 Patient TargetsNo targets recorded. Patient InstructionsNo instructions recorded. Reason for Referral None Reported. Results Created Date Observation Date Name Description Value Unit Range Abnormal Flag Note LastModifiedBy Organization Detail LastModifiedTime 11/28/1911/28/2024 URINA LYSIS COMPL ETE/I RIS W/RFX color YELLOW Not Available [facility] (Lab) [address] [place], [address], 11/28/2024 14:53:55 11/28/19 25 11/28/2024 URINA LYSIS COMPL ETE/I RIS W/RFX appear EXTRA TURBID abnormal Not Available [facility] (Lab) [address] [place], [address], 11/28/2024 14:53:55 11/28/19 25 11/28/2024 URINA LYSIS COMPL ETE/I RIS W/RFX specific gravity 1.016 1.001- 1.030 Not Available [facility] (Lab) [address] [place], [address], 11/28/2024 14:53:55 11/28/19 25 11/28/2024 URINA LYSIS COMPL ETE/I RIS W/RFX pH 8.0 pH_un its 5.0-9. 0 Not Available [facility] (Lab) [address] [place], [address], 11/28/2024 14:53:55 11/28/19 25 11/28/2024 URINA LYSIS COMPL ETE/I RIS W/RFX leukocytes >/=500 terry/u L negati ve- abnormal Not Available [facility] (Lab) [address] [place], [address], 11/28/2024 14:53:55 11/28/19 25 11/28/2024 URINA LYSIS COMPL ETE/I RIS W/RFX nitrite 2+ negati ve- abnormal Not Available [facility] (Lab) [address] [place], [address], 11/28/2024 14:53:55 11/28/19 25 11/28/2024 URINA LYSIS COMPL ETE/I RIS W/RFX protein 50 mg/dL negati ve- abnormal Not Available [facility] (Lab) [address] [place], [address], 11/28/2024 14:53:55 11/28/19 25 11/28/2024 URINA LYSIS COMPL ETE/I RIS W/RFX glucose NORMAL mg/dL normal - Not Available [facility] (Lab) [address] [place], [address], 11/28/2024 14:53:55 11/28/19 25 11/28/2024 URINA LYSIS COMPL ETE/I RIS W/RFX ketones NEGATI VE mg/dL negati ve- Not Available [facility] (Lab) [address] [place], [address], 11/28/2024 14:53:55 11/28/19 25 11/28/2024 URINA LYSIS COMPL ETE/I RIS W/RFX urobilinogen NORMAL mg/dL normal - Not Available [facility] (Lab) [address] [place], [address], 11/28/2024 14:53:55 11/28/19 25 11/28/2024 URINA LYSIS COMPL ETE/I RIS W/RFX bilirubin NEGATI VE mg/dL negati ve- Not Available [facility] (Lab) [address] [place], [address], 11/28/2024 14:53:55 11/28/19 25 11/28/2024 URINA LYSIS COMPL ETE/I RIS W/RFX blood 0.03 mg/dL negati ve- abnormal Not Available [facility] (Lab) [address] [place], [address], 11/28/2024 14:53:55 11/28/19 25 11/28/2024 URINA LYSIS COMPL ETE/I RIS W/RFX white blood cells PACKED /i??h pfi?? 0-8 abnormal Not Available [facility] (Lab) [address] [place], [address], 11/28/2024 14:53:55 11/28/19 25 11/28/2024 URINA LYSIS COMPL ETE/I RIS W/RFX white blood cell clumps OCCASI ONAL /i??h pfi?? none seen- abnormal Not Available [facility] (Lab) [address] [place], [address], 11/28/2024 14:53:55 11/28/19 25 11/28/2024 URINA LYSIS COMPL ETE/I RIS W/RFX red blood cells 5-10 /i??h pfi?? 0-4 abnormal Not Available [facility] (Lab) [address] [place], [address], 11/28/2024 14:53:55 11/28/19 25 11/28/2024 URINA LYSIS COMPL ETE/I RIS W/RFX bacteria NONE Not Available [facility] (Lab) [address] [place], [address], 11/28/2024 14:53:55 11/28/19 25 11/28/2024 URINA LYSIS COMPL ETE/I RIS W/RFX mucous OCCASI ONAL /i??l pfi?? abnormal Not Available [facility] (Lab) [address] [place], [address], 11/28/2024 14:53:55 11/28/19 25 11/28/2024 URINA LYSIS COMPL ETE/I RIS W/RFX squamous epithelial PACKED FIELD /i??l pfi?? abnormal Not Available [facility] (Lab) [address] [place], [address], 11/28/2024 14:53:55 11/28/1911/28/2024 CULTU RE URINE urc ===== ===== ===== ===== ===== ===== ===== ===== ===== ===== ===== ===== ===== ===== ===== ===== ===== ===== ===== ===== ===== ===== ===== ===== Speci men NO.: [id number] Exam Statu s: Final Proce dure: [...] Genta micin <=2 S [place] [id number] Oxida se React ion N Extra Sensi [...] furan toin >64 R R Not Available [facility] (Lab) [address] [place] [address], [address], 11/30/2024 07:30:53 12/04/1912/04/2024 CULTU RE WOUND /TISS UE+GR .STAI N wndtssc ===== ===== ===== ===== ===== ===== ===== ===== ===== ===== ===== ===== ===== ===== ===== ===== ===== ===== ===== ===== ===== ===== ===== ===== Speci men NO.: [id number] Exam Statu s: Final Proce dure: [...] Oxida se React [place] [id number] Amp/S ulbac reyna <=8/4 S Oxida se [...] ===== ===== ===== ===== Speci men NO.: [id number] Exam Statu s: Final Proce dure: [...] S Genta micin <=2 S [place] [id number] [id number] Oxida se React ion N Amp/S ulbac reyna 16/8 R* Ceftr iaxon e >2 R Cefta zidim e 4 S Cefaz bere >16 R Cefep john <=2 S Cefur oxime 16 R* Levof loxac in <=0.5 S Merop enem <=1 S Pip/T azo 16 I Trime th/Bermeo lfa <=2/3 8 S Tetra cycli ne <=4 S Tobra mycin <=2 S Not Available [facility] (Lab) [address] [place], [address], 12/11/2024 07:28:45 11/09/19 25 11/09/2024 imagi ng/di agnos tic resul t No observ ation record ed. [facility] [address] [place], [address], 11/09/2024 13:31:38 11/09/19 25 11/09/2024 imagi ng/di agnos tic resul t No observ ation record ed. [facility] [address] [place], [address], 11/09/2024 16:04:21 12/13/19 25 12/11/2024 imagi ng/di agnos tic resul t No observ ation record ed. [facility] [address] [place], [address], 12/12/2024 01:20:18 02/26/20 25 02/25/2025 imagi ng/di agnos tic resul t No observ ation record ed. [address] [place] [address], [address], 02/26/2025 13:47:50 02/26/20 25 02/25/2025 imagi ng/di agnos tic resul t No observ ation record ed. [address], [place], [address], 02/26/2025 13:49:04 Result Notes None recorded. Problems Name Problem SNOMED Code Status Onset Date Resolution Date Notes Provider Name and Address Organization Details Recorded Time Pain in lower limb 15540713 Completed 03/13/2025 DINA Shane [address] [facility], [address], [place], [address] , [place] [employer] 5 14:10:18 Urinary incontine vte 371840256 Active Not Available [facility] 3 06:14:20 Edema 104038949 Completed 03/13/2025 DINA Shane [address], [address], [place], [address] , [employer] [facility] 5 14:09:37 Thoracic back pain 330685358 Active Not Available [facility] 3 06:14:20 Osteopeni a 675309831 Active Not Available [facility] 3 06:14:20 Osteoarth ritis 347837439 Active Not Available [facility] 3 06:14:20 Dysphagia 64813885 Completed 03/13/[address], [place], [address] , [employer] [facility] 5 14:09:33 Infiltrat ing duct carcinoma of breast 708632730 Completed 03/13/[address], [place], [address] , [employer] [facility] 5 14:09:56 Disorder of rotator cuff 831214843 Active Left Not Available [facility] 3 06:14:20 Essential hypertens ion 78516201 Active Not Available [facility] 3 06:14:20 Urgent desire to urinate 50262247 Completed 03/13/2025 DINA Shane [address], [address], [place], [address] , [employer] [facility] 5 14:10:41 Breast lump 22481176 Completed 03/13/2025 DINA Shane [address], [address], [place], [address] , [employer] [facility] 5 14:09:25 Thyroid function tests abnormal 615862235 Active 2021 Not Available [facility] 3 06:14:20 Goiter 5661544 Completed 202103/13/[address], [place], [address] , [facility] [employer] [facility] 5 14:09:51 Cough 76807441 Completed 202203/13/2025 DINA Shane [address], [address], [place], [address] , [facility] 5 14:09:31 Decreased hearing 404352801 Active 2022 DINA Weaver [address], [address], [place], [address] , [facility] [employer] [facility] 3 15:55:40 Persisten t cough 417745904 Completed 202203/13/2025 DINA Shane [address], [address], [place], [address] , [facility] [employer] [facility] [employer] [facility] 5 14:10:32 Forgetful 86161901 Completed 202203/13/2025 DINA Shane [address], [address], [place], [address] , [facility] [employer] [facility] [employer] [facility] 5 14:09:47 Age-assoc iated memory impairmen t 412241464 Active 2022 DINA Wevaer [address], [address], [place], [address] , [facility] 3 16:36:06 Fatigue 91266029 Active 2023 DINA Shane [address], [address], [place], [address] , [facility] [employer] [facility] 4 14:28:55 Depressiv e disorder 64207869 Active 2023 DINA Shane [address], [address], [place], [address] , [facility] [employer] [facility] 4 14:36:36 Memory impairmen t 833551999 Completed 202303/13/2025 DINA Shane [address], [address], [place], [address] , [employer] [facility] 14:10:16 Bilateral tinnitus 97782446760 02 Completed 202303/13/2025 DINA Shane [address], [address], [place], [address] , [employer] [facility] 14:09:23 Open wound of anterior abdominal wall 167015651 Active 2023 Isai hyde MD [address], [address], [place], [address] , [employer] 14:32:47 Intermitt ent confusion 346676429 Active 2024 DINA Shane [address], [address], [place], [address] , [employer] 11:37:47 Electroly te imbalance 591193510 Completed 202403/13/2025 DINA Shane [address], [address], [place], [address] , [employer] 14:09:43 Idiopathi c periphera l neuropath y 84014269 Active 2024 DINA Shane [address], [address], [place], [address] , [employer] 14:20:16 Acute urinary tract infection 313833079 Completed 202403/13/2025 DINA Shane [address], [address], [place], [address] , [employer] 5 15:12:17 Skin lesion 80982435 Completed 202403/13/2025 DINA Shane [address], [address], [place], [address] , [employer] 14:10:37 Decline in functiona l status 50220140870 9106 Active 2024 DINA Shane [address], [place], [address] , [employer] 15:53:57 Seborrhei c dermatiti s of scalp 597267891 Active 2024 DINA Shane [address], [place], [address] , [employer] 10:53:39 Acute urinary tract infection 086596897 Active 2024 DINA Sahne [address], [place], [address] , [employer] [facility] [employer] 15:12:17 Asthenia 54894772 Active 2024 DINA Shane [address] [employer], [place], [address] , [employer] 12:07:52 Notes:Some problems listed i n Documents: #[id number], #[id number] could not be added to this patient's chart. Please review these documents and add these problems to the patient's chart manually as needed. Problem Notes None recorded. Procedures Surgical History Date Name Laterality Status Provider Name and Address Organization Details Recorded Time 12/12/19 25 Blank Procedure completed Isai smith MD [address], [place], [address], [employer] [facility] [employer] 12/11/2024 11:51:20 11/15/19 25 Transitional_Care_ Management completed DINA Shane [address], [place], [address], [employer] [facility] [employer] 11/15/2024 14:25:35 10/23/19 25 Medicare Wellness CPT Code, subsequent completed DINA Shane [address], [place], [address], [facility] [employer] [facility] 10/23/2024 11:48:34 09/24/20 24 excision completed Frida Parikh MA [facility] [employer] [facility] 09/26/2024 15:14:00 07/17/20 24 Blank Procedure Note completed Isai smith MD [address] [facility], [address], [place], [address], [facility] [employer] [facility] 07/17/2024 13:40:41 Cholecystectomy completed Not Available [facility] 12/08/2022 06:10:39 Hernia Repair completed Not Available [facility] 12/08/2022 06:10:39 Imaging Results None recorded. Procedure Notes None [...] Not Available azithromyc in 250 mg tablet TAKE 1 TABLET BY MOUTH ONCE DAILY FOR 4 DAYS START ON DAY 2 OF THERAPY. 03/12 completed Not Available Not Available Not [...] EVERY 12 HOURS DIRECTED FOR 3 DAYS 03/12 completed Not Available Not Available Not Available prochlorpe razine maleate 10 mg tablet 03/12 completed Not Available Not Available Not Available ciprofloxa kd 500 mg tablet TAKE 1 TABLET BY MOUTH EVERY 12 HOURS FOR 5 DAYS 03/12 completed Not Available Not Available Not Available sulfametho xazole 800 mg-trimeth oprim 160 [...] 1 TABLET BY MOUTH TWICE A DAY 03/12 completed Not Available Not Available Not Available meclizine 25 mg tablet 03/12 completed [...] 0.05 % scalp solution MASSAGE INTO SCALP TOPICALLY TWICE DAILY WHEN FLARED(US E NEEDED) active Not Available Not Available No t Available ondansetro n 4 mg disintegra ting tablet 03/12 completed Not Available Not Available Not Available cefdinir [...] 1 tablet twice a day by oral route as directed for 30 days. 2024 active Not Available Not Available Not Avai lable mirtazapin e 7.5 mg tablet TAKE 1 TABLET BY MOUTH ONCE DAILY AT BEDTIME active Not Available Not Available No t Available nitrofuran toin monohydrat e/macrocry stals 100 mg capsule TAKE 1 CAPSULE BY MOUTH EVERY 12 HOURS DIRECTED FOR 5 DAYS active Not Available Not Available No t Available Imodium 1 daily 03/12 completed Not Available Not Available Not Available Fish Oil 1,000 mg capsule Take 1 capsule twice a day by oral route. 05/19 completed Not Available Not Available Not Available Prevnar 13 (PF) 0.5 mL intramuscu lar syringe PHARMACIS T ADMINISTE RED IMMUNIZAT ION ADMINISTE RED AT TIME OF DISPENSIN G 04/03 completed Not Available Not Available Not Available Fluvirin 9379-9233 45 mcg (15 mcg x 3)/0.5 mL intramuscu lar suspension 04/03 completed Not Available Not Available Not Available Fluvirin 9469-3886 45 mcg (15 mcg x 3)/0.5 mL intramuscu lar suspension 04/03 completed Not Available Not Available Not Available Fluzone High-Dose 2014- (PF) 180 mcg/0.5 mL intramuscu lar syringe 09/07 completed Not Available Not Available Not Available Fluzone High-Dose 6238-1997 (PF) 180 mcg/0.5 mL intramuscu lar syringe 04/03 completed Not Available Not Available Not Available Shingrix (PF) 50 mcg/0.5 mL intramuscu lar suspension , kit 04/03 completed Not Available Not Available Not Available Fluzone High-Dose 2019-20 (PF) 180 mcg/0.5 mL intramuscu lar syringe [...] in Arterial blood by Pulse oximetry Systolic And Diastolic Provider Name and Address Organization Details Last Updated DateTime 5 154.94 cm 21.5 kg/m2 09622.5 3 g 97.8 [degF] 70 /min 16 /min 98 % 98 % 110/80 mm[Hg] Deb Ordoñez [facility] [employer] [facility] 5 10:31:55 Date Recorded Body height Body mass index (BMI) Body weight Body temperature Heart rate Respiratory rate Oxygen saturation Oxygen saturation in Arterial blood by Pulse oximetry Systolic And Diastolic Provider Name and Address Organization Details Last Updated DateTime 5 154.94 cm 21.5 kg/m2 79897.5 3 g 97.8 [degF] 70 /min 16 /min 98 % 98 % 110/80 mm[Hg] Deb Ordoñez [facility] [employer] [facility] 5 11:15:58 Date Recorded Body height Body mass index (BMI) Body weight Heart rate Oxygen saturation Oxygen saturation in Arterial blood by Pulse oximetry Systolic And Diastolic Provider Name and Address Organization Details Last Updated DateTime 5 154.94 cm 21.5 kg/m2 24531.5 3 g 72 /min 99 % 99 % 112/82 mm[Hg] FABIO Sauceda [facility] [employer] [facility] 5 10:51:39 Date Recorded Body height Body mass index (BMI) Body weight Body temperature Heart rate Respiratory rate Oxygen saturation Oxygen saturation in Arterial blood by Pulse oximetry Systolic And Diastolic Provider Name and Address Organization Details Last Updated DateTime 154.94 cm 21.8 kg/m2 29727.8 7 g 97 [degF] 61 /min 24 /min 98 % 98 % 136/80 mm[Hg] LISSETTE Rowell - [place] 10:38:20 Social History Question Answer Notes LastModified by Organization Details LastModified Time Tobacco Smoking Status Former Smoker Not Available [facility] 12/08/2022 06:10:30 Do You Have An Advance Directive? No Information not available 03/12/2025 Are You Blind Or Do You Have Difficulty Seeing? Yes Wears Glasses Information not available 04/03/2024 What Is Your Level Of Caffeine Consumption? Occasional [id number] Information not available 12/08/2022 In The 14 [...] Type Of Diet Are You Following? REGULAR [id number] Information not available 12/08/2022 Have There Been Any Changes To Your Family Or Social Situation? Yes Ostomy Bag Information not available 03/12/2025 When Did You Quit Smoking? 16+yearssincelastc igarette 30 + Years Ago [id number] Information not available 12/08/2022 Do You Use Insect Repellent Routinely? No Information not available 04/03/2024 Where Do You Live? SingleLevelHouse Lives With Daughter Information not available 11/15/2024 Advance Directive- Providers Has Reviewed Directive And Consents To Follow Them (insert Provider Name With Any Objectives In Notes Field) No Information not available 03/12/2025 Presence Of Domestic Violence No Information not available 03/12/2025 Guns Present In The Home? No Information not available 03/12/2025 Are You Able To Care For Yourself? Yes Information not available 03/12/2025 Are You Blind Or Do Yo Have Difficulty Seeing? Yes Information not available 03/12/2025 Are You Deaf Or Do You Have Serious Difficulty Hearing? Yes Information not available 03/12/2025 General Stress Level? Moderate Information not available 03/12/2025 Live Alone Of With Others? With Others Information not available 03/12/2025 How Many Children Do You Have? 5 Information not available 04/03/2024 Do You Have Any Pets? Yes Information not available 04/03/2024 What Is Your Relationship Status? Information not available 04/03/2024 Do You Use Your Seat Belt Or Car Seat Routinely? Yes Information not available 04/03/2024 Do You Have Smoke And Carbon Monoxide Detectors In Your Home? Yes Information not available 04/03/2024 Are You Passively Exposed To Smoke? No Information not available 04/03/2024 Are There Any Smokers In Your House? No Information not available 04/03/2024 Do You Participate In Social Media? Yes Information not available 04/03/2024 Do You Use Sunscreen Routinely? No Information not available 04/03/2024 Have You Recently Traveled Abroad? No Information not available 04/03/2024 Do You Have Difficulty Walking Or Climbing Stairs? Yes Information not available 04/03/2024 Do You Have Any Dietary Restrictions? No [id number] Information not available 12/08/2022 Sex: Female Functional Status Question Answer Note LastModified by Organizat ion Details LastModified Time What is your level of alcohol consumption? None [id number] Information not available 12/08/2022 Are you currently employed? No Information not available 04/03/2024 Do you have transportation difficulties? Yes Information not available 04/03/2024 Are you able to walk? YESASSIST Information not available 04/03/2024 Do you have difficulty doing errands alone? Yes Information not available 04/03/2024 Are you able to care for yourself? Yes daughter Information n ot available 04/03/2024 Do you have difficulty dressing or bathing? Yes Information not available 11/15/2024 What is your exercise level? None [id number] Information not available 12/08/2022 Mental Status Question Answer Note LastModified by Organizat ion Details LastModified Time Do you feel stressed (tense, restless, nervous, or anxious, or unable to sleep at night)? [email or web address] Information not available 02/17/2023 Do you have difficulty concentrating, remembering or making decisions? Yes Information no t available 04/03/2024 Family History Relationship Description Onset Age of this Age Resolved Age Notes LastModified by Organization Details LastModified Time Father Family history of malignant neoplasm [id number] Not available 12/08/2022 06:10:41 Medical History Condition Response ARTHRITIS HEART DISEASE/HEART PROBLEMS Y EYE PROBLEMS HAVE YOU BEEN HOSPITALIZED OR SEEN IN [facility] IN THE PAST YEAR ? Y Gynecological History Statement/Question Response How many live births 5 Date of Last Pap Smear Most Recent Mammogram Most Recent Bone Density Obstetrics History GPAL:G 0 P 0 0 0 0 Immunizations Vaccine Type Date Status Note Provider Nam e and Address Organization Details Recorded Time influenza, unspecified formulation 3 completed LISSETTE Rowell [facility] [employer] 04/03/2024 14:02:56 influenza, unspecified formulation 7 completed LISSETTE Rowell [employer] 04/03/2024 14:02:56 pneumococcal polysaccharide PPV23 2 completed Not Available [facility] 12/08/2022 06:18:35 Influenza, high-dose, quadrivalent, PF 2 completed Not Available [facility] 12/08/2022 06:18:35 Influenza, high-dose, trivalent, PF 5 completed LISSETTE Rowell, [employer] [facility] [employer] 10/23/2024 13:50:07 Past Encounters Encounter ID Performer Location Encounter Start Date Encounter Closed Date Diagnosis/Indication Diagnosis SNOMED-CT Code Diagnosis ICD10 Code Diagnosis Note [id number] Vidal Lindsay MD [facility] [place] [address] [address] [place] [address] 05/19/2021 00:00:00 05/19/2021 12:10:30 [id number] Vidal Lindsay MD [facility] [address] [place] [address] 03/17/2022 00:00:00 03/17/2022 18:03:02 [id number] [facility] Endo Morrison [address] [place] [address] 05/31/2022 00:00:00 05/31/2022 15:55:14 [id number] Vidal Lindsay MD [facility] [address] [address] [place] [address] 06/03/2022 00:00:00 06/08/2022 21:33:30 [id number] OSCAR Bourgeois [facility] [place] [address] [place] [address] 06/18/2022 00:00:00 06/18/2022 15:31:35 [id number] [facility] Endo Morrison [address] [place] [address] 06/29/2022 00:00:00 06/29/2022 14:55:27 [id number] OSCAR Bourgeois [facility] [place] landerse [address] [place] [address] [address] [place] [address] 06/30/2022 00:00:00 06/30/2022 16:42:12 [id number] Vidal Lindsay MD [facility] [place] [address] [place] [address] [address] [place] [address] 07/27/2022 00:00:00 08/09/2022 12:15:09 [id number] DINA Weaver [facility] Primary Care Vadim jonathan [address] [facility] [address] [place] [address] 02/17/2023 15:17:06 02/17/2023 17:24:54 Decreased hearing [id number] H91.90 New finding on examinatio nPt required repetition of words, phrases, questions multiple times. Suspect some of pts concerns about dementia may actually be r/t poor hearing. Recommend hearing screening, audiology referral generated. Persistent cough [id number] 02 R05.3 New problemSea luis m Allergies vs Silent Reflux vs Bronchitis vs PneumoniaI n light of pts descriptio n of feeling like cough/phle gm are moving up the middle of her chest, sx occurring more at night, and lack of improvemen t with otc cold/flu medication , suspect silent reflux or allergies. Respirator y exam wnl in office today.If sx do not improve with otc allergy meds or H2 wendy, will send for imaging and refer to ENT. 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 [id number] R41.81 G31.84 New problemPt scores 28/30 on MMSE (see scanned documentat ion) today. Reassured pt this is very mild and does not indicate dementia of any type. Encouraged pt to continue to do puzzles and read frequently to keep her mind sharp. Advised that some of her concerns may actually be d/t poor hearing. [id number] Arjun Barajas MD [address] [address] 04/03/2024 13:56:20 04/03/2024 15:02:12 Fatigue 95080068 R53.83 Depressive disorder 3548 9007 F32.A Memory impairment 584001 006 R41.3 Recommende d neurologis t referral, pt declines [id number] Isai hyde MD [facility] [address] [facility] [address] [address] 06/07/2024 11:06:24 06/07/2024 14:00:42 [id number] Isai hyde MD [facility] General [facility] [address] [facility] [address] [address] 06/14/2024 11:00:52 06/14/2024 11:40:44 [id number] [facility] [address] [address] 06/19/2024 11:18:16 07/09/2024 15:55:45 [id number] [facility] [address] [address] 07/03/2024 12:14:03 07/09/2024 15:50:20 [id number] [facility] [address] [address] 07/17/2024 10:37:21 07/17/2024 14:31:00 [id number] [facility] [address] [address] 07/24/2024 10:46:50 08/03/2024 10:26:51 [id number] [facility] [address] [facility] [address] [address] 07/31/2024 10:43:52 08/01/2024 15:14:08 [id number] [facility] [address] [address] 08/21/2024 10:52:45 08/21/2024 11:51:42 [id number] [facility] [address] [facility] [address] [address] 09/11/2024 10:44:53 09/12/2024 09:15:24 [id number] [facility] [address] [facility] [address] [address] 09/18/2024 10:35:55 09/18/2024 12:00:47 Open wound of anterior abdominal wall [id number] S31.109D Mid abdomen [id number] Isai hyde MD [facility] General Surgery [address] [address] 09/27/2024 12:23:22 10/04/2024 16:26:26 [id number] Isai hyde MD [facility] General Surgery [address] [address] 10/11/2024 11:15:54 10/11/2024 13:04:19 [id number] Isai hyde MD [facility] General Surgery [address] [address] 10/25/2024 11:42:36 11/07/2024 16:15:50 [id number] Arjun Barajas MD [address] [address] 10/23/2024 10:50:43 10/24/2024 10:36:51 Adult health examination [id number] Z00.00 Health maintenanc e reviewedDi scussed diet and exercise. Advised to increase protein.Oscar barry questions answered Screening for disorder 032625624 Z13.9 Administra tion of influenza vaccine 63994851 Z23 Intermitte nt confusion 267395722 R41.0 [id number] Isai hyde MD [facility] General Surgery [address] [address] 11/06/2024 10:48:48 11/06/2024 12:23:05 [id number] Arjun Barajas MD [address] [address] 11/15/2024 13:40:15 11/15/2024 14:33:56 Transition of care 0130632439 105 Z75.8 Patient is in fair healthLive s at home with her daughterSa fe within her home, has good help in the home Electrolyte imbalance 10 5293788 E87.8 diagnosed in ER, was started on Magnesium Fatigue 57502496 R53.83 Napping daily now, goes to bed at 7:30, abnormal for her [id number] Isai hyde MD [facility] General Surgery [address] [address] 11/20/2024 10:29:33 11/26/2024 17:37:57 [id number] Isai hyde MD [facility] General Surgery [address] [address] 12/04/2024 11:13:48 12/04/2024 11:40:06 [id number] Arjun Barajas MD [address] [address] 12/05/2024 09:41:54 12/21/2024 09:49:18 [id number] Isai hyde MD [facility] General Surgery [address] [address] 12/11/2024 10:44:47 12/11/2024 11:57:45 Skin lesion 04881705 L98.9 [id number] DINA Shane [address] [address] 03/12/2025 10:22:22 03/12/2025 11:01:46 Seborrheic dermatitis of scalp 242395487 L21.9 Zoryve given in office Essential hypertension 61321385 I10 Well controlled , will continue metoprolol Health Concerns Section Related Observation LastModified by Organization Detai ls LastModified Time None Recorded Concern Status LastModified by Organization Details LastModified Time None Recorded Advance Directives Directive N: Payers Insurance Date Sequence Insurance Name Policy Number Policy Car Covered Member ID Car Member ID Guarantor Name 04/20/2025 1 [place] Cynthia Sheriff [id number] Cynthia Sheriff 04/20/2025 2 [facility] Cynthia Sheriff [id number] Cynthia Sheriff Notes Date Note Type Note Provider Name and Address Organization Details Recorded Time 11/20/2024 text/html no complaints Isai Duran MD [address], [place] [address], [place], [address], [facility] [id number] [facility] [employer] [facility] 11/20/2024 12:23:59 12/04/2024 text/html family states drainage increased and brownish Isai Duran MD [address] [facility], [place] [address], [place], [address], [employer] [facility] 12/04/2024 15:39:55 12/11/2024 text/html family states drainage increased and brownish, cultures + citrobacter Isai Duran MD [address], [place] [address], [place], [address], [employer] [facility] [employer] 12/11/2024 11:56:42 03/12/2025 text/html Cynthia Sheriff is a n 84 year old female patient here today for an ER FU She went to [facility] on for an irregular heartbeat. She had missed her metoprolol. She has now restarted metoprolol and this has corrected. She had an abnormal chest XR, was started on azithromycin for possible pneumonia. She is asymptotic now. 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 DINA Shane [address] [facility], [place] [address], [place], [address], [employer] [facility] [employer] 03/12/2025 14:20:30 OBGyn Episode No OBEpisode recorded.
--- OUTSIDE RECORDS SUMMARY | 2025-04-30 16:06 | XMS_ITS ---
Author Name Auto Generated, Auto Generated Organization [facility] Address [address] [place] [address] Phone [phone] Care Team Providers Care Geriatric Aide Name Role Phone Sheree Garza Unavailable [phone] Isabela Fair Unavailable Functional Status No Results Mental Status No Results Allergies and Intolerances Name Onset Date Reaction Severity No Known Allergies (Allergy) TueDec 19 15:13:00 EDT 2024 Encounters Program Name Primary Diagnosis Admission Date/Time Dis charge Date/Time [facility] TueDec 19 08:00:00 EDT [...] Sublingual PRN Every 8 Hours Indication: nausea Tricia Dec 20 03:30:00 EDT 2024Jan 09 01:00:00 EDT [...] - Use of psychotropic drug use places Sheridan at risk for drug-related sideeffects.* Code: * Start Date: TueDec 27 00:00:00 EDT 2024 * End Date: * Text: LSS_Psychotropic Drug Use - Use of psychotropic drug use places Sheridan at risk for drug-related side effects. * LSS_Falls - Cynthia is at risk for falls/injury as evidenced by: history of falls, cognitive status/behavior, vision status, continence, mobility, balance.* Code: * Start Date: TueDec 27 00:00:00 EDT 2024 * End Date: * Text: LSS_Falls - Cynthia is at risk for falls/injury as evidenced by: history of falls, cognitive status/behavior, vision status, continence, mobility, balance. * [facility] SSD_Social Services- Cynthia's wishes will be followed (Advanced Directive/Code Status).* Code: * Start Date: TueDec 28 00:00:00 EDT 2024 * End Date: * Text: [facility] (Advanced Directive/Code Status). * [facility]Social Jake Marie will be involved in goal development to the best of his or her ability.* Code: * Start Date: TueDec 28 00:00:00 EDT 2024 * End Date: * Text: Chace Marie will be involved in goal development to the best of his or her ability. * Chace Marie has family/friends who are supportive.* Code: * Start Date: TueDec 28 00:00:00 EDT 2024 * End Date: * Text: Chace Marie has family/friends who are supportive. * Chace Marie's mobility level is different than prior level due to current medical condition.* Code: * Start Date: TueDec 28 00:00:00 EDT 2024 * End Date: * Text: Chace Marie's mobility level is different than prior level due to current medical condition. * [facility] Jake Marie will be involved in discharge planning.* Code: * Start Date: TueDec 28 00:00:00 EDT 2024 * End Date: * Text: Chace Marie will be involved in discharge planning. 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 Vital Signs Vital Sign Measurement Date Systolic Blood Pressure 119.00 mm[Hg] TueJan 09 09:20:20 EDT 2024 Diastolic Blood Pressure 66.00 mm[Hg] TueJan 09 09:20:20 EDT 2024 Heart Rate 73.00 /min TueJan 09 09:20 :20 EDT 2024 Systolic Blood Pressure 116.00 mm[Hg] TueJan 08 23:48:34 EDT 2024 Diastolic Blood Pressure 66.00 mm[Hg] TueJan 08 23:48:34 EDT 2024 Pulse Oximetry 97.00 % TueJan 08 23:48 :34 EDT 2024 Heart Rate 70.00 /min TueJan 08 23:48 :34 ED2024 Body temperature 97.70 [degF] TueJan 08 23:4 8:34 EDT 2024 Respiratory rate 18.00 /min TueJan 08 23:4 8:34 EDT 2024 Systolic Blood Pressure 116.00 mm[Hg] TueJan 08 21:09:43 EDT 2024 Diastolic Blood Pressure 66.00 mm[Hg] TueJan 08 21:09:43 EDT 2024 Heart Rate 70.00 /min TueJan 08 21:09 :43 EDT 2024 Body weight 124.20 [lb_av] TueJan 08 17:22 :15 EDT 2024 Systolic Blood Pressure 149.00 mm[Hg] TueJan 08 10:22:49 EDT 2024 Diastolic Blood Pressure 75.00 mm[Hg] TueJan 08 10:22:49 EDT 2024 Pulse Oximetry 95.00 % TueJan 08 10:22 :49 EDT 2024 Heart Rate 70.00 /min TueJan 08 10:22 :49 EDT 2024 Body temperature 97.70 [degF] TueJan 08 10:2 2:49 EDT 2024 Respiratory rate 20.00 /min TueJan 08 10:2 2:49 EDT 2024 Systolic Blood Pressure 149.00 mm[Hg] TueJan 08 09:25:53 EDT 2024 Diastolic Blood Pressure 75.00 mm[Hg] TueJan 08 09:25:53 EDT 2024 Heart Rate 70.00 /min TueJan 08 09:25 :53 EDT 2024 Systolic Blood Pressure 144.00 mm[Hg] TueJan 08 00:22:02 EDT 2024 Diastolic Blood Pressure 75.00 mm[Hg] TueJan 08 00:22:02 EDT 2024 Pulse Oximetry 98.00 % TueJan 08 00:22 :02 EDT 2024 Heart Rate 81.00 /min TueJan 08 00:22 :02 EDT 2024 Body temperature 97.50 [degF] TueJan 08 00:2 2:02 EDT 2024 Respiratory rate 18.00 /min TueJan 08 00:2 2:02 EDT 2024 Systolic Blood Pressure 144.00 mm[Hg] TueJan 07 21:12:35 EDT 2024 Diastolic Blood Pressure 75.00 mm[Hg] TueJan 07 21:12:35 EDT 2024 Heart Rate 81.00 /min TueJan 07 21:12 :35 EDT 2024 Body weight 124.00 [lb_av] TueJan 07 10:51 :13 EDT 2025 Systolic Blood Pressure 132.00 mm[Hg] TueJan 07 09:30:11 EDT 5 Diastolic Blood Pressure 73.00 mm[Hg] TueJan 07 09:30:11 EDT 2024 Systolic Blood Pressure 132.00 mm[Hg] TueJan 07 09:30:11 EDT 2024 Diastolic Blood Pressure 73.00 mm[Hg] TueJan 07 09:30:11 EDT 2024 Pulse Oximetry 93.00 % TueJan 07 09:30 :11 EDT 2024 Heart Rate 70.00 /min TueJan 07 09:30 :11 EDT 2024 Heart Rate 70.00 /min TueJan 07 09:30 :11 EDT 2024 Body temperature 97.20 [degF] TueJan 07 09:3 0:11 EDT 2024 Respiratory rate 20.00 /min TueJan 07 09:3 0:11 EDT 2024 Systolic Blood Pressure 109.00 mm[Hg] TueJan 07 00:37:41 EDT 2024 Diastolic Blood Pressure 63.00 mm[Hg] TueJan 07 00:37:41 EDT 2024 Pulse Oximetry 99.00 % TueJan 07 00:37 :41 EDT 2024 Heart Rate 74.00 /min TueJan 07 00:37 :41 EDT 2024 Body temperature 97.70 [degF] TueJan 07 00:3 7:41 EDT 2024 Respiratory rate 20.00 /min TueJan 07 00:3 7:41 EDT 2024 Systolic Blood Pressure 109.00 mm[Hg] TueJan 06 21:01:58 EDT 2024 Diastolic Blood Pressure 63.00 [...] 79.00 mm[Hg] TueJan 06 10:01:00 EDT 2024 Pulse Oximetry 96.00 % Sun Mar 30 10:01 :00 EDT 2024 Heart Rate 74.00 /min Sun Mar 30 10:01 :00 EDT 2024 Heart Rate 74.00 /min Sun Mar 30 10:01 :00 EDT 2024 Body temperature 97.70 [degF] Sun Mar 30 10:0 1:00 EDT 2024 Respiratory rate 16.00 /min Sun Mar 30 10:0 1:00 EDT 2024 Systolic Blood Pressure 120.00 mm[Hg] Sat Mar 29 23:37:49 EDT 2024 Diastolic Blood Pressure 65.00 mm[Hg] Sat Mar 29 23:37:49 EDT 2024 Pulse Oximetry 99.00 % Sat Mar 29 23:37 :49 EDT 2024 Heart Rate 78.00 /min Sat Mar 29 23:37 :49 EDT 2024 Body temperature 97.40 [degF] Sat Mar 29 23:3 7:49 EDT 2024 Respiratory rate 18.00 /min Sat Mar 29 23:3 7:49 EDT 2024 Systolic Blood Pressure 120.00 mm[Hg] Sat Mar 29 20:59:18 EDT 2024 Diastolic Blood Pressure 65.00 mm[Hg] Sat Mar 29 20:59:18 EDT 2024 Heart Rate 78.00 /min Sat Mar 29 20:59 :18 EDT 2024 Systolic Blood Pressure 128.00 mm[Hg] Sat Mar 29 11:44:43 EDT 2024 Diastolic Blood Pressure 82.00 mm[Hg] Sat Mar 29 11:44:43 EDT 2024 Pulse Oximetry 98.00 % Sat Mar 11:44 :43 EDT 2024 Body temperature 98.20 [degF] Sat Mar 29 11:4 4:43 EDT 2024 Respiratory rate 18.00 /min Sat Mar 29 11:4 4:43 EDT 2024 Body weight 124.40 [lb_av] Sat Mar 29 11:44 :43 EDT 2024 Heart Rate 75.00 /min Sat Mar 29 11:44 :43 EDT 2024 Systolic Blood Pressure 128.00 mm[Hg] Sat Mar 29 09:16:15 EDT 2024 Diastolic Blood Pressure 52.00 mm[Hg] Sat Mar 29 09:16:15 EDT 2024 Heart Rate 75.00 /min Sat Mar 29 09:16 :15 EDT 2024 Systolic Blood Pressure 132.00 mm[Hg] Sat Mar 29 00:07:11 EDT 2024 Diastolic Blood Pressure 65.00 mm[Hg] TueJan 05 00:07:11 EDT 2024 Pulse Oximetry 94.00 % TueJan 05 00:07 :11 EDT 2024 Heart Rate 85.00 /min TueJan 05 00:07 :11 EDT 2024 Body temperature 98.00 [degF] TueJan 05 00:0 7:11 EDT 2024 Respiratory rate 20.00 /min TueJan 05 00:0 7:11 EDT 2024 Systolic Blood Pressure 132.00 mm[Hg] [...] 68.00 mm[Hg] TueJan 04 09:13:44 EDT 2024 Pulse Oximetry 96.00 % TueJan 04 09:13 :44 EDT 2024 Heart Rate 72.00 /min TueJan 04 09:13 :44 EDT 2024 Heart Rate 72.00 /min TueJan 04 09:13 :44 EDT 2024 Body temperature 98.00 [degF] TueJan 04 09:1 3:44 EDT 2024 Respiratory rate 18.00 /min TueJan 04 09:1 3:44 EDT 2024 Systolic Blood Pressure 132.00 mm[Hg] TueJan 04 00:56:25 EDT 2024 Diastolic Blood Pressure 79.00 mm[Hg] TueJan 04 00:56:25 EDT 2024 Pulse Oximetry 95.00 % TueJan 04 00:56 :25 EDT 2024 Heart Rate 78.00 /min TueJan 04 00:56 :25 EDT 2024 Body temperature 98.00 [degF] TueJan 04 00:5 6:25 EDT 2024 Respiratory rate 16.00 /min TueJan 04 00:5 6:25 EDT 2024 Systolic Blood Pressure 132.00 mm[Hg] TueJan 03 21:11:20 EDT 2024 Diastolic Blood Pressure 79.00 mm[Hg] TueJan 03 21:11:20 EDT 2024 Heart Rate 70.00 /min TueJan 03 21:11 :20 EDT 2024 Body weight 121.40 [lb_av] TueJan 03 13:20 :48 EDT 2024 Systolic Blood Pressure 116.00 mm[Hg] Tricia Jan 03 10:58:15 EDT 2024 Diastolic Blood Pressure 62.00 mm[Hg] Tricia Jan 03 10:58:15 EDT 2024 Pulse Oximetry 96.00 % Tricia Jan 03 10:58 :15 EDT 2024 Heart Rate 73.00 /min Tricia Jan 03 10:58 :15 EDT 2024 Body temperature 97.80 [degF] Tricia Jan 03 10:5 8:15 EDT 2024 Respiratory rate 18.00 /min Tricia Jan 03 10:5 8:15 EDT 2024 Systolic Blood Pressure 116.00 mm[Hg] TueJan 03 09:23:41 EDT 2024 Diastolic Blood Pressure 62.00 mm[Hg] TueJan 03 09:23:41 EDT 2024 Heart Rate 73.00 /min TueJan 03 09:23 :41 EDT 2024 Systolic Blood Pressure 136.00 mm[Hg] TueJan 02 23:09:01 EDT 2024 Diastolic Blood Pressure 70.00 mm[Hg] TueJan 02 23:09:01 EDT 2024 Pulse Oximetry 99.00 % TueJan 02 23:09 :01 EDT 2024 Heart Rate 86.00 /min TueJan 02 23:09 :01 EDT 2024 Body temperature 97.40 [degF] TueJan 02 23:0 9:01 EDT 2024 Respiratory rate 18.00 /min TueJan 02 23:0 9:01 EDT 2024 Systolic Blood Pressure 136.00 mm[Hg] TueJan 02 21:46:53 EDT 2024 Diastolic Blood Pressure 70.00 mm[Hg] TueJan 02 21:46:53 EDT 2024 Heart Rate 86.00 /min TueJan 02 21:46 :53 EDT 2024 Body weight 121.80 [lb_av] TueJan 02 11:57 :25 EDT 2024 Systolic Blood Pressure 133.00 mm[Hg] TueJan 02 10:42:59 EDT 2024 Diastolic Blood Pressure 70.00 mm[Hg] TueJan 02 10:42:59 EDT 2024 Pulse Oximetry 98.00 % TueJan 02 10:42 :59 EDT 2024 Heart Rate 75.00 /min TueJan 02 10:42 :59 EDT 2024 Body temperature 97.50 [degF] TueJan 02 10:4 2:59 EDT 2024 Respiratory rate 18.00 /min TueJan 02 10:4 2:59 EDT 2024 Systolic Blood Pressure 133.00 mm[Hg] TueJan 02 09:07:21 EDT 2024 Diastolic Blood Pressure 70.00 mm[Hg] TueJan 02 09:07:21 EDT 2024 Heart Rate 75.00 /min TueJan 02 09:07 :21 EDT 2024 Systolic Blood Pressure 130.00 mm[Hg] TueJan 02 00:05:12 EDT 2024 Diastolic Blood Pressure 59.00 mm[Hg] TueJan 02 00:05:12 EDT 2024 Pulse Oximetry 99.00 % TueJan 02 00:05 :12 EDT 2024 Heart Rate 74.00 /min TueJan 02 00:05 :12 EDT 2024 Body temperature 97.80 [degF] TueJan 02 00:0 5:12 EDT 2024 Respiratory rate 18.00 /min TueJan 02 00:0 5:12 EDT 2024 Systolic Blood Pressure 133.00 mm[Hg] [...] 74.00 mm[Hg] TueJan 01 09:01:35 EDT 2024 Pulse Oximetry 95.00 % TueJan 01 09:01 :35 EDT 2024 Heart Rate 70.00 /min TueJan 01 09:01 :35 EDT 2024 Heart Rate 70.00 /min TueJan 01 09:01 :35 EDT 2024 Body temperature 97.80 [degF] TueJan 01 09:0 1:35 EDT 2024 Respiratory rate 18.00 /min TueJan 01 09:0 1:35 EDT 2024 Systolic Blood Pressure 127.00 mm[Hg] TueJan 01 00:24:15 EDT 2024 Diastolic Blood Pressure 68.00 mm[Hg] TueJan 01 00:24:15 EDT 2024 Pulse Oximetry 97.00 % TueJan 01 00:24 :15 EDT 2024 Heart Rate 80.00 /min TueJan 01 00:24 :15 EDT 2024 Body temperature 97.80 [degF] TueJan 01 00:2 4:15 EDT 2024 Respiratory rate 18.00 /min TueJan 01 00:2 4:15 EDT 2024 Systolic Blood Pressure 127.00 mm[Hg] TueDec 31 21:15:55 EDT 2024 Diastolic Blood Pressure 68.00 mm[Hg] TueDec 31 21:15:55 EDT 2024 Heart Rate 80.00 /min TueDec 31 21:15 :55 EDT 2024 Body weight 121.40 [lb_av] TueDec 31 12:25 :07 EDT 2024 Systolic Blood Pressure 118.00 mm[Hg] TueDec 31 10:07:43 EDT 2024 Diastolic Blood Pressure 65.00 mm[Hg] TueDec 31 10:07:43 EDT 2024 Systolic Blood Pressure 118.00 mm[Hg] TueDec 31 10:07:43 EDT 2024 Diastolic Blood Pressure 65.00 mm[Hg] TueDec 31 10:07:43 EDT 2024 Pulse Oximetry 96.00 % TueDec 31 10:07 :43 EDT 2024 Heart Rate 78.00 /min TueDec 31 10:07 :43 EDT 2024 Heart Rate 78.00 /min TueDec 31 10:07 :43 EDT 2024 Body temperature 97.70 [degF] TueDec 31 10:0 7:43 EDT 2024 Respiratory rate 18.00 /min TueDec 31 10:0 7:43 EDT 2024 Systolic Blood Pressure 102.00 mm[Hg] Sun Mar 23 23:04:21 EDT 2024 Diastolic Blood Pressure 64.00 mm[Hg] Sun Mar 23 23:04:21 EDT 2024 Pulse Oximetry 99.00 % Sun Mar 23 23:04 :21 EDT 2024 Heart Rate 70.00 /min Sun Mar 23 23:04 :21 EDT 2024 Body temperature 97.70 [degF] Sun Mar 23 23:0 4:21 EDT 2024 Respiratory rate 18.00 /min Sun Mar 23 23:0 4:21 EDT 2024 Systolic Blood Pressure 102.00 mm[Hg] Sun Mar 23 20:44:19 EDT 2024 Diastolic Blood Pressure 64.00 mm[Hg] Sun Mar 23 20:44:19 EDT 2024 Heart Rate 70.00 /min Sun Mar 23 20:44 :19 EDT 2024 Systolic Blood Pressure 125.00 mm[Hg] Sun Mar 23 13:59:47 EDT 2024 Diastolic Blood Pressure 70.00 mm[Hg] Sun Mar 23 13:59:47 EDT 2024 Pulse Oximetry 98.00 % Sun Mar 23 13:59 :47 EDT 2024 Body weight 120.70 [lb_av] Sun Mar 23 13:59 :47 EDT 2024 Heart Rate 68.00 /min Sun Mar 23 13:59 :47 EDT 2024 Body temperature 97.70 [degF] Sun Mar 23 13:5 9:47 EDT 2024 Respiratory rate 18.00 /min Sun Mar 23 13:5 9:47 EDT 2024 Systolic Blood Pressure 125.00 mm[Hg] Sun Mar [...] mm[Hg] Sat Mar 22 20:58:09 EDT 2024 Pulse Oximetry 97.00 % Sat Mar 22 20:58 :09 EDT 2025 Heart Rate 76.00 /min Sat Mar 22 20:58 :09 EDT 2024 Heart Rate 76.00 /min Sat Mar 22 20:58 :09 EDT 2024 Body temperature 97.90 [degF] Sat Mar 22 20:5 8:09 EDT 2024 Respiratory rate 18.00 /min Sat Mar 22 20:5 8:09 EDT 2024 Systolic Blood Pressure 135.00 mm[Hg] Sat Mar 22 10:37:32 EDT 2024 Diastolic Blood Pressure 72.00 mm[Hg] Sat Mar 22 10:37:32 EDT 2024 Pulse Oximetry 97.00 % Sat Mar 22 10:37 :32 EDT 2024 Body weight 121.80 [lb_av] Sat Mar 22 10:37 :32 EDT 2024 Heart Rate 68.00 /min Sat Mar 22 10:37 :32 EDT 2024 Body temperature 97.40 [degF] Sat Mar 22 10:3 7:32 EDT 2024 Respiratory rate 18.00 /min Sat Mar 22 10:3 7:32 EDT 2024 Systolic Blood Pressure 135.00 mm[Hg] Sat Mar 22 09:31:00 EDT 2024 Diastolic Blood Pressure 72.00 mm[Hg] Sat Mar 22 09:31:00 EDT 2024 Heart Rate 68.00 /min Sat Mar 22 09:31 :00 EDT 2024 Systolic Blood Pressure 147.00 mm[Hg] Sat Mar 22 01:59:21 EDT 2024 Diastolic Blood Pressure 78.00 mm[Hg] Sat Mar 22 01:59:21 EDT 2024 Pulse Oximetry 99.00 % Sat Mar 22 01:59 :21 EDT 2024 Heart Rate 79.00 /min Sat Mar 22 01:59 :21 EDT 2024 Body temperature 98.00 [degF] Sat Mar 22 01:5 9:21 EDT 2024 Respiratory rate 18.00 /min Sat Mar 22 01:5 9:21 EDT 2024 Systolic Blood Pressure 147.00 mm[Hg] TueDec 28 21:51:22 EDT 2024 Diastolic Blood Pressure 78.00 mm[Hg] TueDec 28 21:51:22 EDT 2024 Heart Rate 79.00 /min TueDec 28 21:51 :22 EDT 2024 Body weight 120.40 [lb_av] TueDec 28 13:51 :07 EDT 2024 Systolic Blood Pressure 109.00 mm[Hg] TueDec 28 09:04:55 EDT 2024 Diastolic Blood Pressure 67.00 mm[Hg] TueDec 28 09:04:55 EDT 2024 Systolic Blood Pressure 109.00 mm[Hg] TueDec 28 09:04:55 EDT 2024 Diastolic Blood Pressure 67.00 mm[Hg] TueDec 28 09:04:55 EDT 2024 Pulse Oximetry 97.00 % TueDec 28 09:04 :55 EDT 2024 Heart Rate 68.00 /min TueDec 28 09:04 :55 EDT 2024 Heart Rate 68.00 /min TueDec 28 09:04 :55 EDT 2024 Body temperature 97.30 [degF] TueDec 28 09:0 4:55 EDT 2024 Respiratory rate 18.00 /min TueDec 28 09:0 4:55 EDT 2024 Systolic Blood Pressure 125.00 mm[Hg] Tricia Dec 27 22:06:45 EDT 2024 Diastolic Blood Pressure 86.00 mm[Hg] Tricia Dec 27 22:06:45 EDT 2024 Pulse Oximetry 92.00 % Tricia Dec 27 22:06 :45 EDT 2024 Heart Rate 111.00 /min Tricia Dec 27 22:06 :45 EDT 2024 Body temperature 97.80 [degF] Tricia Dec 27 22:0 6:45 EDT 2024 Respiratory rate 18.00 /min Tricia Dec 27 22:0 6:45 EDT 2024 Systolic Blood Pressure 134.00 mm[Hg] Tricia Dec 27 21:20:00 EDT 2024 Diastolic Blood Pressure 70.00 mm[Hg] Tricia Dec 27 21:20:00 EDT 2024 Heart Rate 64.00 /min Tricia Dec 27 21:20 :00 EDT 2024 Body weight 118.20 [lb_av] Tricia Dec 27 18:16 :56 EDT 2024 Systolic Blood Pressure 134.00 mm[Hg] Triciadec 20 10:13:58 EDT 2024 Diastolic Blood Pressure 68.00 mm[Hg] Triciadec 20 10:13:58 EDT 2024 Pulse Oximetry 98.00 % Tricia Dec 27 10:13 :58 EDT 2024 Heart Rate 64.00 /min Triciadec 20 10:13 :58 EDT 2024 Body temperature 98.40 [degF] Tricia Mar 20 10:1 3:58 EDT 5 Respiratory rate 16.00 /min Tue 20 10:1 3:58 EDT 5 Systolic Blood Pressure 134.00 mm[Hg] Tue 19 23:51:35 EDT 5 Diastolic Blood Pressure 75.00 mm[Hg] Tue 19 23:51:35 EDT 2024 Pulse Oximetry 99.00 % Tue 19 23:51 :35 EDT 2024 Heart Rate 98.00 /min Tue 19 23:51 :35 EDT 2024 Body temperature 97.60 [degF] Tue 19 23:5 1:35 EDT 2024 Respiratory rate 16.00 /min Tue 19 23:5 1:35 EDT 2024 Systolic Blood Pressure 134.00 mm[Hg] Tue 19 22:01:14 EDT 2024 Diastolic Blood Pressure 75.00 mm[Hg] Tue 19 22:01:14 EDT 2024 Heart Rate 98.00 /min TueDec 26 22:01 :14 EDT 2024 Body weight 117.50 [lb_av] Tue 19 17:05 :23 EDT 2024 Systolic Blood Pressure 161.00 mm[Hg] Tue 19 09:08:37 EDT 2024 Diastolic Blood Pressure 91.00 mm[Hg] Tue 19 09:08:37 EDT 2024 Systolic Blood Pressure 161.00 mm[Hg] Tue 19 09:08:37 EDT 2024 Diastolic Blood Pressure 91.00 mm[Hg] Tue 19 09:08:37 EDT 2024 Pulse Oximetry 98.00 % Tue 19 09:08 :37 EDT 2024 Heart Rate 85.00 /min Tue 19 09:08 :37 EDT 2024 Heart Rate 85.00 /min Tue 19 09:08 :37 EDT 2024 Body temperature 97.30 [degF] Tue 19 09:0 8:37 EDT 2024 Respiratory rate 18.00 /min Tue 19 09:0 8:37 EDT 2024 Systolic Blood Pressure 109.00 mm[Hg] Tue 19 00:22:18 EDT 2024 Diastolic Blood Pressure 85.00 mm[Hg] Tue 19 00:22:18 EDT 2024 Pulse Oximetry 97.00 % Tue 19 00:22 :18 EDT 2024 Heart Rate 82.00 /min Tue 19 00:22 :18 EDT 2024 Body temperature 98.00 [degF] TueDec 26 00:2 2:18 EDT 2024 Respiratory rate 22.00 /min TueDec 26 00:2 2:18 EDT 2024 Systolic Blood Pressure 109.00 mm[Hg] TueDec 25 21:32:04 EDT 2024 Diastolic Blood Pressure 85.00 mm[Hg] TueDec 25 21:32:04 EDT 2024 Heart Rate 82.00 /min TueDec 25 21:32 :04 EDT 2024 Body weight 119.80 [lb_av] TueDec 25 18:04 :39 EDT 2024 Systolic Blood Pressure 119.00 mm[Hg] TueDec 25 11:36:12 EDT 2024 Diastolic Blood Pressure 66.00 mm[Hg] TueDec 25 11:36:12 EDT 2024 Systolic Blood Pressure 119.00 mm[Hg] TueDec 25 11:36:12 EDT 2024 Diastolic Blood Pressure 66.00 mm[Hg] TueDec 25 11:36:12 EDT 2024 Pulse Oximetry 99.00 % TueDec 25 11:36 :12 EDT 2024 Heart Rate 78.00 /min TueDec 25 11:36 :12 EDT 2024 Heart Rate 78.00 /min TueDec 25 11:36 :12 EDT 2024 Body temperature 97.70 [degF] TueDec 25 11:3 6:12 EDT 2024 Respiratory rate 18.00 /min TueDec 25 11:3 6:12 EDT 2024 Systolic Blood Pressure 123.00 mm[Hg] TueDec 25 00:24:34 EDT 2024 Diastolic Blood Pressure 71.00 mm[Hg] Tue 18 00:24:34 EDT 2024 Pulse Oximetry 97.00 % TueDec 25 00:24 :34 EDT 2024 Heart Rate 72.00 /min Tue 18 00:24 :34 EDT 2024 Body temperature 97.60 [degF] TueDec 25 00:2 4:34 EDT 2024 Respiratory rate 18.00 /min TueDec 25 00:2 4:34 EDT 2024 Systolic Blood Pressure 123.00 mm[Hg] TueDec 24 20:58:09 EDT 2024 Diastolic Blood Pressure 71.00 mm[Hg] Mon Mar 17 20:58:09 EDT 5 Heart Rate 72.00 /min Tue 17 20:58 :09 EDT 5 Body weight 117.80 [lb_av] Tue 17 16:14 :12 EDT 2024 Body Height 60.00 [in_i] Tue 17 12:56 :54 EDT 2024 Systolic Blood Pressure 139.00 mm[Hg] Tue 17 09:56:21 EDT 2024 Diastolic Blood Pressure 69.00 mm[Hg] Tue 17 09:56:21 EDT 2024 Systolic Blood Pressure 139.00 mm[Hg] Tue 17 09:56:21 EDT 2024 Diastolic Blood Pressure 69.00 mm[Hg] Tue 17 09:56:21 EDT 2024 Pulse Oximetry 98.00 % Tue 17 09:56 :21 EDT 2024 Heart Rate 71.00 /min Tue 17 09:56 :21 EDT 2024 Heart Rate 71.00 /min Tue 17 09:56 :21 EDT 2024 Body temperature 97.40 [degF] Tue 17 09:5 6:21 EDT 5 Respiratory rate 18.00 /min Tue 17 09:5 6:21 EDT 5 Systolic Blood Pressure 132.00 mm[Hg] Tue 17 01:22:45 EDT 2024 Diastolic Blood Pressure 60.00 mm[Hg] Tue 17 01:22:45 EDT 2024 Pulse Oximetry 98.00 % Tue 17 01:22 :45 EDT 2024 Heart Rate 72.00 /min Tue 17 01:22 :45 EDT 2024 Body temperature 97.40 [degF] Tue 17 01:2 2:45 EDT 2024 Respiratory rate 18.00 /min Tue 17 01:2 2:45 EDT 2024 Systolic Blood Pressure 132.00 mm[Hg] Sun Dec 16 21:32:34 EDT 2024 Diastolic Blood Pressure 60.00 mm[Hg] Sun Dec 16 21:32:34 EDT 2024 Heart Rate 72.00 /min Blunt Dec 16 21:32 :34 EDT 2024 Body weight 117.80 [lb_av] Sun Dec 16 13:11 :30 EDT 2024 Systolic Blood Pressure 122.00 mm[Hg] Sun Dec 16 08:47:54 EDT 2024 Diastolic Blood Pressure 72.00 mm[Hg] Sun Dec 16 08:47:54 EDT 2024 Pulse Oximetry 99.00 % Sun Mar 16 08:47 :54 EDT 2024 Heart Rate 68.00 /min Sun Mar 16 08:47 :54 EDT 2024 Body temperature 97.90 [degF] Sun Mar 16 08:4 7:54 EDT 2024 Respiratory rate 18.00 /min Sun Mar 16 08:4 7:54 EDT 2024 Systolic Blood Pressure 122.00 mm[Hg] Sun Mar 16 08:47:02 EDT 2024 Diastolic Blood Pressure 72.00 mm[Hg] Sun Mar 16 08:47:02 EDT 2024 Heart Rate 68.00 /min Sun Mar 16 08:47 :02 EDT 2024 Systolic Blood Pressure 102.00 mm[Hg] Sun Mar 16 00:58:19 EDT 2024 Diastolic Blood Pressure 60.00 mm[Hg] Sun Mar 16 00:58:19 EDT 2024 Pulse Oximetry 97.00 % Sun Mar 16 00:58 :19 EDT 2024 Heart Rate 70.00 /min Sun Mar 16 00:58 :19 EDT 2024 Body temperature 97.80 [degF] Sun Mar 16 00:5 8:19 EDT 2024 Respiratory rate 18.00 /min Sun Mar 16 00:5 8:19 EDT 2024 Systolic Blood Pressure 134.00 mm[Hg] Sat Mar 15 21:14:49 EDT 2024 Diastolic Blood Pressure 71.00 mm[Hg] Sat Mar 15 21:14:49 EDT 2024 Heart Rate 74.00 /min Sat Mar 15 21:14 :49 EDT 2024 Body weight 115.40 [lb_av] Sat Mar 15 11:57 :16 EDT 2024 Systolic Blood Pressure 130.00 mm[Hg] Sat Mar 15 09:35:07 EDT 2024 Diastolic Blood Pressure 75.00 mm[Hg] Sat Mar 15 09:35:07 EDT 2024 Pulse Oximetry 95.00 % Sat Mar 15 09:35 :07 EDT 2024 Heart Rate 75.00 /min Sat Mar 15 09:35 :07 EDT 2024 Body temperature 98.00 [degF] Sat Mar 15 09:3 5:07 EDT 2024 Respiratory rate 18.00 /min Sat Mar 15 09:3 5:07 EDT 2024 Systolic Blood Pressure 130.00 mm[Hg] Sat Mar 15 09:21:45 EDT 5 Diastolic Blood Pressure 75.00 mm[Hg] [facility] Mar 15 09:21:45 EDT 2024 Heart Rate 75.00 /min [facility] Mar 15 09:21 :45 EDT 2024 Systolic Blood Pressure 128.00 mm[Hg] [facility] Mar 15 03:23:08 EDT 2024 Diastolic Blood Pressure 72.00 mm[Hg] [facility] Mar 15 03:23:08 EDT 2024 Pulse Oximetry 100.00 % [facility] Mar 15 03:23 :08 EDT 2024 Heart Rate 76.00 /min [facility] Mar 15 03:23 :08 EDT 2024 Body temperature 97.70 [degF] [facility] Mar 15 03:2 3:08 EDT 2024 Respiratory rate 22.00 /min [facility] Mar 15 03:2 3:08 EDT 2024 Systolic Blood Pressure 128.00 mm[Hg] Tue 14 23:11:58 EDT 2024 Diastolic Blood Pressure 72.00 mm[Hg] Tue 14 23:11:58 EDT 2024 Heart Rate 76.00 /min Tue 14 23:11 :58 EDT 2024 Systolic Blood Pressure 127.00 mm[Hg] Tue 14 12:14:39 EDT 2024 Diastolic Blood Pressure 75.00 mm[Hg] Tue 14 12:14:39 EDT 2024 Pulse Oximetry 98.00 % Tue 14 12:14 :39 EDT 2024 Heart Rate 79.00 /min Tue 14 12:14 :39 EDT 2024 Body temperature 97.30 [degF] Tue 14 12:1 4:39 EDT 2024 Respiratory rate 18.00 /min Tue 14 12:1 4:39 EDT 2024 Systolic Blood Pressure 127.00 mm[Hg] Tue 14 09:45:11 EDT 2024 Diastolic Blood Pressure 75.00 mm[Hg] Tue 14 09:45:11 EDT 2024 Heart Rate 78.00 /min Tue 14 09:45 :11 EDT 2024 Systolic Blood Pressure 118.00 mm[Hg] Tue 14 01:55:40 EDT 2024 Diastolic Blood Pressure 75.00 mm[Hg] Tue 14 01:55:40 EDT 2024 Pulse Oximetry 95.00 % Tue 14 01:55 :40 EDT 2024 Heart Rate 94.00 /min Tue 14 01:55 :40 EDT 5 Body temperature 97.90 [degF] Tue 14 01:5 5:40 EDT 2024 Respiratory rate 20.00 /min Tue 14 01:5 5:40 EDT 2024 Systolic Blood Pressure 118.00 mm[Hg] Tricia Dec 13 22:11:48 EDT 2024 Diastolic Blood Pressure 75.00 mm[Hg] Tricia Dec 13 22:11:48 EDT 2024 Heart Rate 94.00 /min Tricia Dec 13 22:11 :48 EDT 2024 Body weight 113.20 [lb_av] Tricia Dec 13 16:13 :39 EDT 2024 Systolic Blood Pressure 129.00 mm[Hg] Tricia Dec 13 09:52:16 EDT 2024 Diastolic Blood Pressure 69.00 mm[Hg] Tricia Dec 13 09:52:16 EDT 2024 Pulse Oximetry 97.00 % Tricia Dec 13 09:52 :16 EDT 2024 Heart Rate 70.00 /min Tricia Dec 13 09:52 :16 EDT 2024 Body temperature 97.40 [degF] Tricia Dec 13 09:5 2:16 EDT 2024 Respiratory rate 20.00 /min Tricia Dec 13 09:5 2:16 EDT 2024 Systolic Blood Pressure 129.00 mm[Hg] Tricia Dec 13 09:08:18 EDT 2024 Diastolic Blood Pressure 69.00 mm[Hg] Tricia Dec 13 09:08:18 EDT 2024 Heart Rate 70.00 /min Tricia Dec 13 09:08 :18 EDT 2024 Systolic Blood Pressure 124.00 mm[Hg] Tricia Dec 13 00:19:35 EDT 2024 Diastolic Blood Pressure 56.00 mm[Hg] Tricia Dec 13 00:19:35 EDT 2024 Pulse Oximetry 98.00 % Tricia Dec 13 00:19 :35 EDT 2024 Heart Rate 75.00 /min Tricia Dec 13 00:19 :35 EDT 2024 Body temperature 97.80 [degF] Tricia Dec 13 00:1 9:35 EDT 2024 Respiratory rate 20.00 /min Tricia Dec 13 00:1 9:35 EDT 2024 Systolic Blood Pressure 124.00 mm[Hg] Tue 12 22:07:21 EDT 2024 Diastolic Blood Pressure 56.00 mm[Hg] Wed Mar 12 22:07:21 EDT 2024 Heart Rate 75.00 /min TueDec 19 22:07 :21 EDT 2024 Systolic Blood Pressure 131.00 mm[Hg] TueDec 19 13:29:00 EDT 2024 Diastolic Blood Pressure 72.00 mm[Hg] TueDec 19 13:29:00 EDT 2024 Pulse Oximetry 95.00 % TueDec 19 13:29 :00 EDT 2024 Heart Rate 67.00 /min TueDec 19 13:29 :00 EDT 2024 Body temperature 97.70 [degF] TueDec 19 13:2 9:00 EDT 2024 Respiratory rate 16.00 /min TueDec 19 13:2 9:00 EDT 2024 Reason for Referral
--- OUTSIDE RECORDS SUMMARY | 2025-04-30 16:06 | XMS_ITS | Clinical Summary ---
Author Organization [facility] Address [address] [place] [address] Phone Care Team Providers Care Automotive General Manager Name Role Phone Unavailable Primary Care Provider [...] Encounters Date Type Department Care Team Description 04/24/2025 External Device Data ST[facility] ABSTRACTION Provider, Abstract 04/24/2025 External Device Data [facility] ABSTRACTION Provider, Abstract 04/16/2025 External Device Data [facility] ABSTRACTION Provider, Abstract 04/16/2025 External Device Data [facility] ABSTRACTION Provider, Abstract 04/16/2025 External Device Data ST[facility] ABSTRACTION Provider, Abstract 03/14/2025 2:08 PM CDT - 03/14/2025 11:59 PM CDT Hospital Encounter [facility] [place] [facility] [address] [place] [phone] Mine Aguirre ANP Stisi, Alanna, RN Colocutaneous fistula Discharge Disposition: Home or Self Care 03/12/2025 External Device Data ST[facility] ABSTRACTION Provider, Abstract 02/21/2025 8:57 AM CDT - 02/21/2025 11:59 PM CDT Hospital Encounter [facility] [place] [facility] [place] [facility] [address] [place] [address] Mine Aguirre, Heather Clement, transition manager Disposition: Home or Self Care 02/19/2025 External Device Data ST[facility] ABSTRACTION Provider, Abstract 02/19/2025 External Device Data STL ABSTRACTION Provider, Abstract 02/05/2025 9:15 AM CDT Office Visit [facility] [address] [address] Jose Alberto Minor, Abdominal fistula (Primary Dx) 02/05/2025 External Device Data STL ABSTRACTION Provider, Abstract 01/29/2025 8:11 AM CDT - 01/29/2025 11:59 PM CDT Hospital Encounter [facility] [place] [facility] [place] [facility] [address] [place] [address] Mine Aguirre, Danyelle Villar, transition manager Disposition: Home or Self Care from Last 3 Months Family History Medical [...] = 0.6 oz pur e alcohol) Comments Unknown Sex and Gender Information Value Date Recorded Sex Assigned at Not on file 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[employer] Gender Identity Not on file Sexual Orientation Not on file Last Filed Vital Signs Vital Sign Reading Time Taken Comments Blood Pressure 145/65 03/14/2025 2:00 PM CDT Pulse 62 03/14/2025 2:00 PM CDT Temperature 36.1 C (96.9 F) 03/14/2025 2:00 PM CDT Respiratory Rate 16 03/14/2025 2:00 PM CDT Oxygen Saturation 94% 02/05/2025 8:52 AM CDT Inhaled Oxygen Concentration - - Weight 52.3 kg (115 lb 6.4 oz) 03/14/2025 2:00 P M CDT Height 149.9 cm (4' 11) 02/05/2025 8:52 AM CDT Body Mass Index 23.31 02/05/2025 8:52 AM CDT Plan of Treatment Upcoming Encounters Date Type Department Care Team (Late st Contact Info) Description 05/16/2025 1:00 PM CDT Appointment [facility] [address] [place] [phone] Mine Aguirre, JOLANTA [address] [place] [address] Health Maintenance Due Date Last Done Comments DTAP/TDAP/TD VACCINES (1 - Tdap) 1958 ZOSTER VACCINE (1 of 2) 1989 OSTEOPOROSIS SCREENING 2004 PNEUMOCOCCAL VACCINE 50+ YEA RS (2 of 2 - PCV) 02/15/2013 02/16/2012 RSV VACCINE (60+ or ) (1 - 1-dose 75+ series) 2014 INFLUENZA VACCINE (#1) 2025 10/23/2024, 2021 Insurance MEDICARE PART A AND B [facility] [id number] RX [employer] Member Subscriber Plan / Payer (Ef fective 2024-Present) Name:Cynthia Sheriff Relation to Subscriber:Self Name:Cynthia Sheriff Payer ID:Not on file Group ID:[id number] Type:RX Medicare Part D Address: [address] Advance Directives For more information, please contact: [phone] * Full Code (Latest Code Status on File) Date Activated Date Inactivated Comments 12/12/2024 2:52 PM 12/15/2024 5:03 PM
--- OUTSIDE RECORDS SUMMARY | 2025-04-30 16:06 | XMS_ITS | Clinical Summary ---
Author Organization [facility] Address [facility] [facility] [place] [address] Care Team Providers Care Formwork Carpenter Name Role Phone Vonnie Lindsay MD Primary Care Provider [phone] Source Comments [facility],non-owned Affiliates and Associated Physician Practices is amultiple site organization consisting of ambulatory clinics and hospital sitesin [place], [place], [place] and [place]. This disclosure is being madepursuant to the Care Everywhere program and may not contain all information available regarding this patient. Last updated 18.[facility] Allergies No known active allergies Medications * Be aware that medications may not be up to date on this document. Alwaysverify current medications with the patient. 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 [phone] PCP - General 08/27/14
--- OUTSIDE RECORDS SUMMARY | 2025-04-30 16:06 | XMS_ITS | Data Portability ---
Author Organization [place] [facility], Main Office Address [address] [place] [address] Care Team Providers Care Bender Hand Name Role Phone P [facility] FAX OTHER VIVIANE GAY Primary Care Provider [phone] Assessment Encounter Date Assessment Date Assessment LastModified [...] will discharge home with her daughter and [facility] on 01/09. Urine cx from 01/06 remains pending, mainly collected for new urinary incontinence. Not available 01/08/2025 15:23:08 Plan of Treatment Reminders Order Date Submit Date Provider Last Modified By Organization Details Last Modified Time Details Appointments None recorded. Lab None recorded. Referral None recorded. Procedures None recorded. Surgeries None recorded. Imaging None recorded. Medication Orders mirtazapine 7.5 mg tablet 2024 025 [facility], [address], [place], [address], 15:53:34 Patient TargetsNo targets recorded. Patient Instructions Encounter Date Encounter Id Patient Instructions Last Modified By Organization Details Last Modified Time 12/23/2024 [id number] I spent 50 minutes providing care to the patient today. More than 50% of that time was spent in discussing the expected course of the disease, discussing prognosis, coordinating care and counseling of the patient/family. [email or web address] Not available 12/25/2024 01:59:28 12/25/2024 [id number] I spent 33 minutes providing care to the patient today. More than 50% of that time was spent in discussing the expected course of the disease, discussing prognosis, coordinating care and counseling of the patient/family. [email or web address] Not available 12/25/2024 14:42:07 12/28/2024 [id number] I spent 35 minutes providing care to the patient today. More than 50% of that time was spent in discussing the expected course of the disease, discussing prognosis, coordinating care and counseling of the patient/family. Not available 12/28/2024 12:13:08 01/01/2025 [id number] I spent 33 minutes providing care to the patient today. More than 50% of that time was spent in discussing the expected course of the disease, discussing prognosis, coordinating care and counseling of the patient/family. Not available 01/01/2025 13:41:49 01/08/2025 [id number] I spent 36 minutes providing care to the patient today. More than 50% of that time was spent in discussing the expected course of the disease, discussing prognosis, coordinating care and counseling of the patient/family. The patient will be discharged home with home health orders of home health RN / PT / OT to evaluate and treat. The patient is homebound because of fall risk and is unable to leave home safely because requires considerable and taxing effort to leave home. The patient requires home health nursing for instruction, observation and assessment; PT for training to restore safe independent functional ambulation in community; and OT for training to improve ability to fulfill ADLs. Please follow-up with your primary care provider within 1 week. Call your primary care provider for instructions or go to the emergency room for new or worsening symptoms. [email or web address] Not available 01/08/2025 15:24:01 Reason for Referral None Reported. Procedures Surgical History Date Name Laterality Status Provider Name and Address Organization Details Recorded Time Appendectomy completed [facility] 12/23/2024 13:09:08 [facility] 12/23/2024 13:09:18 [facility] 12/23/2024 13:09:27 Imaging Results None recorded. Procedure [...] No t Available mirtazapine 7.5 mg tablet TAKE 1 TABLET BY MOUTH ONCE DAILY AT BEDTIME active Not Available Not Available No t Available Vitals Date Recorded Body height Body mass index (BMI) Body weight Oxygen saturation Oxygen saturation in Arterial blood by Pulse oximetry Respiratory rate Body temperature Heart rate Systolic And Diastolic Provider Name and Address Organization Details Last Updated DateTime 152.4 cm 23 kg/m2 84413.1 8 g 99 % 99 % 18 /min 97.9 [degF] 71 /min 139/69 mm[Hg] [place] [address] [place], [address] [facility] 00:51:08 Date Recorded Body height Heart rate Body temperature Respiratory rate Oxygen saturation Oxygen saturation in Arterial blood by Pulse oximetry Body mass index (BMI) Body weight Systolic And Diastolic Provider Name and Address Organization Details Last Updated DateTime 152.4 cm 78 /min 97.7 [degF] 18 /min 99 % 99 % 23 kg/m2 47881.1 8 g 119/66 mm[Hg] [place] [address] [place], [address] [place] [address] 13:57:43 Date Recorded Body height Heart rate Body temperature Respiratory rate Body mass index (BMI) Body weight Oxygen saturation Oxygen saturation in Arterial blood by Pulse oximetry Systolic And Diastolic Provider Name and Address Organization Details Last Updated DateTime 5 152.4 cm 68 /min 97.3 [degF] 18 /min 23.1 kg/m2 93704.6 2 g 97 % 97 % 109/67 mm[Hg] [place] [address] [place], [address], [place] [facility] 5 12:01:57 Date Recorded Body height Heart rate Body temperature Respiratory rate Oxygen saturation Oxygen saturation in Arterial blood by Pulse oximetry Body mass index (BMI) Body weight Systolic And Diastolic Provider Name and Address Organization Details Last Updated DateTime 5 152.4 cm 70 /min 97.8 [degF] 18 /min 95 % 95 % 23.9 kg/m2 36532.7 1 g 140/74 mm[Hg] [place] [address] [place], [address], [place] [facility] 5 13:35:17 Date Recorded Body height Heart rate Body temperature Respiratory rate Oxygen saturation Oxygen saturation in Arterial blood by Pulse oximetry Body mass index (BMI) Body weight Systolic And Diastolic Provider Name and Address Organization Details Last Updated DateTime 5 152.4 cm 70 /min 97.7 [degF] 20 /min 95 % 95 % 24.2 kg/m2 01448.4 5 g 149/75 mm[Hg] [place] [address] [place], [address], [place] [facility] 5 15:15:27 Social History Question Answer Notes LastModified by [employer] Details LastModified Time Tobacco Smoking Status Never Smoker Miguel garza, [place] [facility] 12/23/2024 13:10:36 What Is Your Code Status? Full Code [email or web address] Information not available 12/20/2024 What Is Your Relationship Status? Information not available 12/23/2024 Sex: Unknown Functional Status Question Answer Note LastModified by [employer] Details LastModified Time Do you use any [...] History Condition Response Osteoarthritis / DJD Y Hyperlipidemia Y Cancer -- Breast Y Psychiatric -- Depression Y Hypertension Y Asthma Y Gynecological HistoryNo gynecological history recorded. 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 The patient developed an abscess to this area back in September. Fecal drainage noted by general surgery at recent follow-up appointjaime whitehead. She has been evaluated by General surgery at [facility] with plans to manage non operativel y for now. Plans are to improve her nutritiona l status with outpatient follow-up and considerat ion for surgery down the road.Gita [facility] ostomy bag for stool collection - patient and family will need continued education on wound care/bag changing.f /u with Dr. Minor as scheduled at [facility] Severe protein-calorie malnutrition (Jackson: less than 60 percent of standard weight) 696989645 E43 The patient was supported with PPN while at [facility] remeron, trend weightsRD to follow while here Essential hypertension 03242419 I10 continue metoprolol trend blood pressures and adjust meds as clinically indicated Major depr essive disorder 241591388 F32.9 continue low dose remeron - might consider titration of this depending upon her length of stay at Impaired cognition 34524 6002 R41.89 suspect the patient has undiagnose d dementiawi ll have ST follow and check SLUMScheck b12 and thyroid studies Nausea 523325635 R11.0 with some associated dizziness - continue prn zofran Physical deconditioning 5457504271 9102 R68.89 related to advanced age, recent hospitaliz ation, comorbidit iestherapi es have been initiated - the patient will return home with support from her family [id number] Isabela Weir, [facility] [address] [place] [address] 12/25/2024 09:31:41 01/03/2025 11:45:29 Colonic fistula 663066573 K63.2 Related to prior hernia repair with mesh placement many years ago. The patient developed an abscess to this area back in September 2024. Fecal drainage noted by general surgery at recent follow-up appointjaime whitehead. She has been evaluated by General Surgery at [facility] with plans to manage non-operat ively for now. Plans are to improve her nutritiona l status with outpatient follow-up and considerat ion for surgery down the road.Gita nue ostomy bag for stool collection . Patient and family will need continued education on wound care/bag changing.F /U with Dr. Minor as scheduled at [facility]. Severe protein-calorie malnutrition (Jackson: less than 60 percent of standard weight) 251388890 E43 The patient was supported with PPN while at [facility].Cont inue Remeron and trend weights.RD to follow while here. Essential hypertension 66277359 I10 Stable. Continue Metoprolol .Continue to trend blood pressures, monitor lytes and renal function, and adjust meds as clinically indicated. Major depr essive disorder 191843995 F32.9 Stable. Continue low dose Remeron.Mi ght consider titration of this depending upon her length of stay at . Impaired cognition 61999 6002 R41.89 Suspect the patient has undiagnose d dementia.S T is following. SLUMS 15/30, consistent with dementia.C hecking Vit B12 and Thyroid studies. Nausea 585486387 R11.0 with some associated dizziness. None reported today. Continue PRN Zofran. Physical deconditioning 4944322772 9102 R68.89 Related to advanced age, recent hospitaliz ation, comorbidit ies.Therap ies have been initiated - the patient will return home with support from her family. [id number] Isabela DO [address] [place] [address] [place] [address] 12/28/2024 09:30:09 01/03/2025 11:46:07 Colonic fistula 642033987 K63.2 Related to prior hernia repair with mesh placement many years ago. The patient developed an abscess to this area back in September 2024. Fecal drainage noted by general surgery at recent follow-up appointjaime whitehead. She has been evaluated by General Surgery at [facility] with plans to manage non-operat ively for now. Plans are to improve her nutritiona l status with outpatient follow-up and considerat ion for surgery down the road.Gita nue ostomy bag for stool collection . Patient and family will need continued education on wound care/bag changing.F /U with Dr. Minor as scheduled at [facility]. Severe protein-calorie malnutrition (Jackson: less than 60 percent of standard weight) 811828855 E43 The patient was supported with PPN while at [facility].Cont inue Remeron and trend weights.RD to follow while here. Essential hypertension 34593165 I10 Stable. Continue Metoprolol .Continue to trend blood pressures, monitor lytes and renal function, and adjust meds as clinically indicated. Major depr essive disorder 000649057 F32.9 Stable. Continue low dose Remeron.Mi ght consider titration of this depending upon her length of stay at . Impaired cognition 88277 6002 R41.89 Suspect the patient has undiagnose d dementia.S T is following. SLUMS , consistent with dementia.C hecking Vit B12 and Thyroid studies. Nausea 332204231 R11.0 with some associated dizziness. None reported today. Continue PRN Zofran. Physical deconditioning 0735409477 9102 R68.89 Related to advanced age, recent hospitaliz ation, comorbidit ies.Therap ies have been initiated - the patient will return home with support from her family. [id number] Isabela DO [address] [place] [address] [place] [address] 01/01/2025 09:55:19 01/03/2025 11:46:44 Colonic fistula 081510511 K63.2 Related to prior hernia repair with mesh placement many years ago. The patient developed an abscess to this area back in September 2024. Fecal drainage noted by general surgery at recent follow-up stephanie whitehead. She has been evaluated by General Surgery at [facility] with plans to manage non-operat ively for now. Plans are to improve her nutritiona l status with outpatient follow-up and considerat ion for surgery down the road.Gita nue ostomy bag for stool collection . Patient and family will need continued education on wound care/bag changing.F /U with Dr. Minor as scheduled at [facility]. Severe protein-calorie malnutrition (Jackson: less than 60 percent of standard weight) 428887867 E43 The patient was supported with PPN while at [facility].Cont inue Remeron and trend weights.RD to follow while here. Essential hypertension 13529748 I10 Stable. Continue Metoprolol .Continue to trend blood pressures, monitor lytes and renal function, and adjust meds as clinically indicated. Major depr essive disorder 599119131 F33.9 Stable. Continue low dose Remeron.Mi ght consider titration of this depending upon her length of stay at . Impaired cognition 32413 6002 R41.89 Suspect the patient has undiagnose d dementia.S T is following. SLUMS , consistent with dementia.V it B12 and Thyroid studies WNL. Nausea 463314987 R11.0 with some associated dizziness. None reported today. Continue PRN Zofran. Physical deconditioning 9596566859 9102 R68.89 Related to advanced age, recent hospitaliz ation, comorbidit ies.Contin ue therapies. Goal is for Cynthia to return home with support from her family. [id number] Isabela Weir, [place] [address] [address] [facility] [place] [address] 01/08/2025 09:55:20 01/21/2025 11:19:14 Colonic fistula 741234211 K63.2 Related to prior hernia repair with mesh placement many years ago. The patient developed an abscess to this area back in September 2024. Fecal drainage noted by general surgery at recent follow-up stephanie benavides She has been evaluated by General Surgery at [facility] with plans to manage non-operat ively for now. Plans are to improve her nutritiona l status with outpatient follow-up and considerat ion for surgery down the road.Gita nue ostomy bag for stool collection . Patient and family will need continued education on wound care/bag changing.F /U with Dr. Minor as scheduled at [facility]. Essential hypertension 85908205 I10 Stable. Continue Metoprolol . Impaired cognition 53422 6002 R41.89 Suspect the patient has undiagnose d dementia.S T is following. SLUMS , consistent with dementia.V it B12 and Thyroid studies WNL. Severe protein-calorie malnutrition (Jackson: less than 60 percent of standard weight) 086330491 E43 The patient was supported with PPN while at [facility].Cont inue Remeron and trend weights.RD to follow while here. Major depr essive disorder 235172764 F33.9 Stable. Continue low dose Remeron.Mi ght consider titration of this depending upon her length of stay at . Nausea 179854573 R11.0 with some associated dizziness. None reported today. Continue PRN Zofran. Urinary incontinence 165 683961 R32 Urine cx from 01/06 remains pending, mainly collected for new urinary incontinen ce noted by pt's daughter.P t denies symptoms today. Health Concerns Section Related Observation LastModified by Organization Detai ls LastModified Time None Recorded Concern Status LastModified by Organization Details LastModified Time None Recorded Advance Directives Directive None Recorded Payers Insurance Date Sequence Insurance Name Policy Number Policy Car Covered Member ID Car Member ID Guarantor Name 01/21/2025 2 [employer] (MEDICARE SUPPLEMENT) Cynthia Sheriff [id number] Cynthia Sheriff 01/21/2025 1 [place] Cynthia Sheriff [id number] Cynthia Sheriff Notes Date Note Type Note Provider Name and Address Organization Details Recorded Time 12/23/2024 text/html 84 Y/O female wi th a PMH of HTN and depression admitted to [facility] for post acute rehab subsequent to an inpatient stay at [facility] 12/12-12/15/2024 related to an open wound to her lower abdomen. She initially presented to [facility] [place], operated by [facility] in [place] with request to transfer to [facility] for further surgical evaluation. 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 She had been following with Dr. Isai Duran at [facility] who treated her abdominal abscess back in September. He saw her in the office 3/ and noted stool in the abdominal wound so sent her to the ER at [facility] for admission. She then was transferred to [facility]. Non surgical measures were recommended at [...] to have a UTI upon admission to [facility] from [facility]. She completed a course of cipro related to this. Urine culture is not available. She was having episodes of dizziness prior to her recent hospitalization. She had been referred to cardiology related to this and was scheduled for outpatient echo and nuclear med stress testing. These tests were done while at [facility] with nuclear stress test negative for ischemia, LV systolic function was normal with EF 70%. She was discharged home with with her daughter, Abbie, who is a former employee of this facility. She had home health services arranged through [facility] but was requiring too much care so [...] Code status is fulldaughter Abbie is POAPCP [employer] MECHANIC Viviane Mccollum/kaci with Surgery, Jose Alberto Minor [address] [place] [address] [place], [address], [facility] - [facility] 12/25/2024 02:00:02 12/25/2024 text/html F/U [...] [place] [address] [address] [facility], [place], [address], [facility] [employer] [facility] 12/25/2024 14:42:28 12/28/2024 text/html F/U colo-cutaneo us [...] [place] [address] [address], [place], [address], [facility] [facility] 12/28/2024 12:13:34 01/01/2025 text/html F/U colo-cutaneo us [...] without concerns at present. Sheree Garza, [address] [address] [place], [address], [facility] - [facility] 01/01/2025 13:42:07 01/08/2025 text/html 84 Y/O female wi th a PMH of HTN and depression admitted to [facility] for post acute rehab subsequent to an inpatient stay at [facility] 12/12-12/15/2024 related to an open wound to her lower abdomen. She initially presented to [facility] [place], operated by [facility] in [place] with request to transfer to [facility] for further surgical evaluation. 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 She had been following with Dr. Isai Duran at [facility] who treated her abdominal abscess back in September. He saw her in the office 12/11 and noted stool in the abdominal wound so sent her to the ER at [facility] for admission. She then was transferred to [facility]. Non surgical measures were recommended at [...] to have a UTI upon admission to [facility] from [facility]. She completed a course of cipro related to this. Urine culture is not available. She was having episodes of dizziness prior to her recent hospitalization. She had been referred to cardiology related to this and was scheduled for outpatient echo and nuclear med stress testing. These tests were done while at [facility] with nuclear stress test negative for ischemia, LV systolic function was normal with EF 70%. She was discharged home with with her daughter, Abbie, who is a former employee of this facility. She had home health services arranged through [facility] but was requiring too much care so has been admitted to for skilled therapy. Discharge plan is back home with support from her family. New medications: Remeron and ZofranDose adjusted / discontinued meds = none Code status is fulldaughter Abbie is POAPCP [employer] MECHANIC Viviane Gay---12/23/24 patient is up and ambulating [...] abdomen. VSS. Staff is without concerns at present.---01/08/25My muir is seated in her room, doing a word search, is without concerns regarding her upcoming discharge home with her daughter and [facility]. VSS. Staff is without concerns today. Sheree Garza, [address] [address] [place], [address], [facility] - [facility] 01/08/2025 15:53:32 OBGyn Episode No OBEpisode recorded.
[2025-04-30 16:07] VITALS: BP 142/73; PULSE 73; RESP 16; TEMP 36.3; O2SAT 97
--- NOTE | 2025-04-30 18:02 | ED_ITS ---
HPI - Extremity Injury (Upper) General Chief Complaint: Extremity Injury, Upper Stated Complaint: shoulder pain Time Seen by Provider: 04/30/25 17:53 Source: patient and family Mode of arrival: wheelchair Limitations: no limitations History of Present Illness HPI narrative: This is an 84-year-old female that presents to the emergency department for right shoulder pain. Reports she reach behind her this afternoon. She felt a pop in her shoulder. Since she has been having pain. She has not taken any medication for this. Denies decreased range of motion or numbness. Related Data Allergies Allergy/AdvReac Type Severity Reaction Status Date / Time NKFA Allergy Unknown no known Uncoded 02/24/25 22:36 allergies NA Allergy Other Uncoded 02/24/25 22:36 Review of Systems Review of Systems: All systems reviewed & are unremarkable except as noted in HPI and below PMFSH Past Medical History Medical History (Updated 04/30/25 @ 18:06 by Shena Alvarado PA-C) History of hypertension Exam Narrative: GENERAL: Well-appearing, well-nourished, and in no acute distress. HEAD: Normocephalic, atraumatic. EYES: EOMI. EXTREMITIES: Normal range of motion. No edema or obvious deformity. Normal radial pulse. Normal sensation SKIN: Warm, dry, no rash. NEURO: No focal deficits. Alert and oriented x3. PSYCH: Normal mood and affect Course Vital Signs Vital signs: Vital Signs Temperature 97.3 F L 04/30/25 16:07 Pulse Rate 73 04/30/25 16:07 Respiratory Rate 16 04/30/25 16:07 Blood Pressure 142/73 H 04/30/25 16:07 Pulse Oximetry 97 04/30/25 16:07 Temperature 97.3 F L 04/30/25 16:07 Pulse Rate 73 04/30/25 16:07 Respiratory Rate 16 04/30/25 16:07 Blood Pressure 142/73 H 04/30/25 16:07 Pulse Oximetry 97 04/30/25 16:07 MDM - Extremity Injury (Upper) MDM Narrative Medical decision making narrative: Patient presents emergency department for right shoulder pain after reaching behind her this afternoon. She is neurovascularly intact. Right shoulder x-ray without acute osseous abnormalities. Patient instructed to rest, ice and take [id number] pain medication as needed. Will be given follow-up with Orthopedics. She was given warnings to return to the ER Differential Diagnosis Differential diagnosis: Likely dislocation of shoulder and other (Shoulder sprain) Imaging Data Radiologist's impression: ITS Impressions Shoulder X-Ray 04/30/25 17:02 IMPRESSION: No acute osseous finding in the right shoulder. Critical Care Time Critical Care Time Critical Care Time: No Discharge Plan Discharge Clinical Impression: Sprain of right shoulder Qualifiers: Encounter type: initial encounter Shoulder sprain type: unspecified sprain Qualified Code(s): S43.401A - Unspecified sprain of right shoulder joint, initial encounter Patient Disposition: Home Condition: Stable Instructions: Shoulder Pain (ED) Additional Instructions: Return to the ER if you experience fever, redness and swelling of your extremity, numbness or any other symptoms that are concerning to you Rest. Ice to the area. Tylenol or Ibuprofen as needed for pain Follow up with orthopedics if needed Patient Language: Nigerian Prescriptions: No Action azithromycin 250 mg tablet 250 mg PO DAILY 4 Days Qty: 4 0RF Rx Instructions: start on day 2 of therapy Follow-up/Referrals: Nestor James MD [Physician] - Robert,Nancy Weaver APRN [Primary Care Provider] -
--- OUTSIDE RECORDS SUMMARY | 2025-04-30 18:13 | XMS_ITS | Clinical Summary ---
Author Organization [facility] Address [address] [place] [address] Phone Care Team Providers Care Microfilm Processor Name Role Phone Unavailable Primary Care Provider [...] - 03/14/2025 11:59 PM CDT Hospital Encounter [facility] [address] [place] [phone] Mine Aguirre ANP Stisi, Alanna, RN Colocutaneous fistula Discharge Disposition: Home or Self Care 03/12/2025 External Device Data STL ABSTRACTION Provider, Abstract 02/21/2025 8:57 AM CDT - 02/21/2025 11:59 PM CDT Hospital Encounter [facility] [place] [facility] [address] [place] [address] Mine Aguirre, Heather Clement, java technical manager Disposition: Home or Self Care 02/19/2025 External Device Data STL ABSTRACTION Provider, Abstract 02/19/2025 External Device Data STL ABSTRACTION Provider, Abstract 02/05/2025 9:15 AM CDT Office Visit [facility] [address] [address] Jose Alberto Minor, Abdominal fistula (Primary Dx) 02/05/2025 External Device Data STL ABSTRACTION Provider, Abstract 01/29/2025 8:11 AM CDT - 01/29/2025 11:59 PM CDT Hospital Encounter [facility] [place] [facility] [address] [place] [address] Mine Aguirre, Danyelle Villar, java technical manager Disposition: Home or Self Care from [...] on file 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 Gender Identity Not on file Sexual Orientation [...] [facility] [address] [place] [phone] Mine Aguirre, JOLANTA [address] [place] [address] Health Maintenance Due Date Last Done Comments DTAP/TDAP/TD VACCINES (1 - Tdap) 1958 ZOSTER VACCINE (1 of 2) 1989 OSTEOPOROSIS SCREENING 2004 PNEUMOCOCCAL VACCINE 50+ YEA RS (2 of 2 - PCV) 02/15/2013 02/16/2012 RSV VACCINE (60+ or ) (1 - 1-dose 75+ series) 2014 INFLUENZA VACCINE (#1) 2025 10/23/2024, 2021 Insurance MEDICARE PART A AND B [facility] [id number] RX [employer] RX Member Subscriber Plan / Payer (Ef fective 2024-Present) Name:Cynthia Sheriff Relation to Subscriber:Self Name:Cynthia Sheriff Payer ID:Not on file Group ID:[id number] Type:RX Medicare Part D Address: [address] Advance Directives For more information, please contact: [phone] * Full Code (Latest Code Status on File) Date Activated Date Inactivated Comments 12/12/2024 2:52 PM 12/15/2024 5:03 PM
--- OUTSIDE RECORDS SUMMARY | 2025-04-30 18:14 | XMS_ITS | Clinical Summary ---
Author Organization [facility] Address [facility] [facility] [place] [address] Care Team Providers Care Straightener Hand Name Role Phone Vonnie Lindsay MD Primary Care Provider [phone] Source Comments [facility],non-owned Affiliates and Associated Physician Practices is amultiple site organization consisting of ambulatory clinics and hospital sitesin [place], [place], [place] and [place]. This disclosure is being madepursuant to the Care Everywhere program and may not contain all information available regarding this patient. Last updated 18.[facility] Allergies No known active allergies Medications * Be aware that medications may not be up to date on this document. Alwaysverify current medications with the patient. 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 [address] PCP - General 08/27/14
--- OUTSIDE RECORDS SUMMARY | 2025-04-30 18:14 | XMS_ITS | Clinical Summary ---
Author Organization [facility] Address Counts include 234 beds at the [facility] [place] [address] Care Team Providers Care Manager Agricultural Name Role Phone Robert Nancy AHMADI Primary Care Provider Allergies No known active allergies Encounters Date Type Department Care Team Description 03/08/2025 12:35 PM CDT - 03/08/2025 3:13 PM CDT Emergency [facility] Room [address] [place] [address] Hunter Martinez MD Palpitations Discharge Disposition: Home [...] COLOR (U) YELLOW 03/08/2025 2:59 PM CDT [facility] TRANSPARENCY CLEAR 03/08/2025 2:59 PM CDT [facility] SPECIFIC GRAVITY (U) 1.010 1.000 - 1.030 03/08/2025 2:59 PM CDT [facility] U PH 6.0 5.0 - 9.0 03/08/2025 2:59 PM CDT [facility] LEUKOCYTES (U) NEGATIVE NEGATIVE 03/08/2025 2:59 PM CDT [facility] NITRITES NEGATIVE NEGATIVE 03/08/2025 2:59 PM CDT [facility] PROTEIN RANDOM (U) NEGATIVE NEGATIVE 03/08/2025 2:59 PM CDT [facility] GLUCOSE (U) NEGATIVE NEGATIVE 03/08/2025 2:59 PM CDT [facility] KETONES MG/DL (U) NEGATIVE NEGATIVE 03/08/2025 2:59 PM CDT [facility] BILIRUBIN (U) NEGATIVE NEGATIVE 03/08/2025 2:59 PM CDT [facility] BLOOD (U) NEGATIVE NEGATIVE 03/08/2025 2:59 PM CDT [facility] WBC/HPF NONE SEEN 0 - 5 /HPF 03/08/2025 2:59 PM CDT [facility] RBC/HPF NONE SEEN 0 - 5 /HPF 03/08/2025 2:59 PM CDT [facility] EPI/HPF MODERATE /HPF 03/08/2025 2:59 PM CDT [facility] URINE SPECIMEN OBTAINED BY CLEAN CATCH PROCEDURE / Unknown 03/08/2025 2:45 PM CDT Hunter Martinez MD URINE ORDERABLES Final Result [facility] [address] [place] [address], * CTA CHEST PE PROTOCOL (03/08/2025 2:09 [...] 2:27 PM Narrative 03/08/2025 2:34 PM CDT [facility] [address] [facility]. [place] [id number] Procedure(s): CTA CHEST PE PROTOCOL Date of [...] Procedure Note Anil Justice MD - 03/08/2025 [facility] [address] [place] [address] Procedure(s): CTA CHEST PE PROTOCOL Date of [...] 1:22 PM Narrative 03/08/2025 1:22 PM CDT [facility] [address] [place] [address] SINGLE VIEW OF THE CHEST Clinical history: Shortness of breath Comparison: None A single view of the chest demonstrates the cardiac silhouette to be normal in size and appearance. The pulmonary vessels appear normal. The Lungs are clear. No consolidations or effusions are seen. Procedure Note Kwadwo Pickering MD - 03/08/2025 [facility] [address] [place] [address] SINGLE VIEW OF THE CHEST Clinical history: [...] PM CDT) 03/08/2025 1:12 PM CDT Narrative [facility] RAD - 03/09/2025 4:57 PM CDT [facility] Test Date: 2025-03-08 Pat Name: HAWK SHERIFF Department: 85 Room: [place] [address] Gender: Female Drawbench Operator: : 1940 Requested By: HUNTER MARTINEZ Order Number: [id number] Reading MD: Bhanu De Leon Measurements Intervals [place] Rate: 64 P: 49 FL: 136 QRS: 25 QRSD: 92 T: 35 QT: 404 QTc: 419 Interpretive Statements SINUS RHYTHM No previous ECG available for comparison Procedure Note Bhanu De Leon MD - 03/09/2025 [facility] Test Date: 2025-03-08 Pat Name: HAWK SHERIFF Department: 85 Room: [place] [address] Gender: Female Drawbench Operator: : 1940 Requested By: HUNTER MARTINEZ Order Number: [id number] Reading MD: Bhanu De Leon Measurements Intervals [place] Rate: 64 P: 49 FL: 136 QRS: 25 QRSD: 92 T: 35 QT: 404 QTc: 419 Interpretive Statements SINUS RHYTHM No previous ECG available for comparison us Hunter Martinez MD ECG ORDERABLES Final R esult [facility] RAD * TSH W/REFLEX (03/08/2025 1:10 PM CDT) [facility] TSH 2.005 0.358 - 3.74 uIU/ML 03/08/2025 1:41 PM CDT [facility] Comment: HIGH DOSES OF BIOTIN MAY INTERFERE WITH THIS TEST RESULT. CORRELATION TO CLINICAL HISTORY AND PRESENTATION RECOMMENDED. FREE T4 NOT INDICATED 03/08/2025 1:10 PM CDT us Hunter Martinez MD LABORATORY Final R esult Performing Organization Address City/[facility]/ZIP Co de Phone Number [facility] [address] [place] [address], [place] [phone] * PRO-BRAIN NATRIURETIC PEPTIDE (03/08/2025 1:10 PM CDT) Pathologist [facility] PRO-B TYPE NATRIURETIC PEPTIDE 383 <450 PG/ML 03/08/2025 1:41 PM CDT [facility] Comment: CUT POINTS ESTABLISHED BY INTERNATIONAL [...] Hunter Martinez MD LABORATORY Final R esult [facility] [address] [place] [address], * (ABNORMAL) COMPREHENSIVE METABOLIC PANEL (03/08/2025 1:10 PM CDT) GLUCOSE 88 70 - 99 MG/DL 03/08/2025 1:41 PM CDT [facility] BUN 24(H) 7 - 18 MG/DL 03/08/2025 1:41 PM CDT [facility] CREATININE S/P/B 0.71 0.55 - 1.02 MG/DL 03/08/2025 1:41 PM CDT [facility] SODIUM S/P/B 138 136 - 145 MMOL/L 03/08/2025 1:41 PM CDT [facility] POTASSIUM S/P/B 4.2 3.5 - 5.1 MMOL/L 03/08/2025 1:41 PM CDT [facility] CHLORIDE S/P/B 103 100 - 108 MMOL/L 03/08/2025 1:41 PM CDT [facility] CO2 27.9 21 - 32 MMOL/L 03/08/2025 1:41 PM CDT [facility] CALCIUM S/P/B 9.0 8.5 - 10.1 MG/DL 03/08/2025 1:41 PM T [facility] BILIRUBIN TOTAL S/P/B 0.4 0.2 - 1.2 MG/DL 03/08/2025 1:41 PM CDT [facility] TOTAL PROTEIN S/P/B 6.8 6.4 - 8.2 G/DL 03/08/2025 1:41 PM T [facility] ALBUMIN S/P/B 3.2(L) 3.4 - 5.0 G/DL 03/08/2025 1:41 PM T [facility] AST 16 15 - 37 U/L 03/08/2025 1:41 PM T [facility] ALT 12(L) 14 - 55 U/L 03/08/2025 1:41 PM T [facility] ALKALINE PHOSPHATASE S/P/B 96 50 - 136 U/L 03/08/2025 1:41 PM T [facility] ANION GAP 7.1 5 - 15 MMOL/L 03/08/2025 1:41 PM T [facility] BUN CREATININE RATIO 33.8(H) 6 - 26 03/08/2025 1:41 PM [facility] A/G RATIO 0.9(L) 1.0 - 2.0 RATIO 03/08/2025 1:41 PM [facility] GFR ESTIMATE 83(L) >90 ML/MIN/1.7 3 M2 03/08/2025 1:41 PM T [facility] Comment: NOTE: eGFR is not calculated for patients <18 years of age. This is an estimated GFR calculation using the new CKD EPI creatinine equation without race and so does not require a correction factor for race. This estimated GFR should not be used for calculating drug doses. 03/08/2025 1:10 PM CDT us Hunter Martinez MD LABORATORY Final R esult [facility] [address] [place] [address], [place] [phone] * (ABNORMAL) D-DIMER, QUANTITATIVE (03/08/2025 1:10 PM CDT) [facility] D-DIMER 1,562(H) 0 - 500 ng{FEU}/mL 03/08/2025 1:30 PM CDT [facility] Comment: D-Dimer values less than or [...] Hunter Martinez MD LABORATORY Final R esult [facility] [address] [place] [address], * (ABNORMAL) CBC W/DIFF AUTOMATED (03/08/2025 1:10 PM CDT) [facility] WBC 8.76 4.4 - 11.0 x10'3/uL 03/08/2025 1:15 PM CDT [facility] RBC 4.33(L) 4.50 - 5.10 x10'6/uL 03/08/2025 1:15 PM CDT [facility] HGB 12.7 12.3 - 15.3 G/DL 03/08/2025 1:15 PM CDT [facility] HCT 38.7 35.9 - 44.6 % 03/08/2025 1:15 PM CDT [facility] MCV 89.4 80.0 - 96.0 FL 03/08/2025 1:15 PM CDT [facility] MCH 29.3 25.3 - 30.9 PG 03/08/2025 1:15 PM CDT [facility] MCHC 32.8 31.0 - 34.1 G/DL 03/08/2025 1:15 PM CDT [facility] RDW 14.5 12.4 - 15.1 % 03/08/2025 1:15 PM CDT [facility] PLT 239 151 - 353 x10'3/uL 03/08/2025 1:15 PM CDT [facility] MPV 9.8 9.6 - 12.0 FL 03/08/2025 1:15 PM CDT [facility] RBC MORPHOLOGY NORMAL 03/08/2025 1:15 PM CDT [facility] PLT MORPH. NORMAL 03/08/2025 1:15 PM CDT [facility] WBC MORPHOLOGY NORMAL 03/08/2025 1:15 PM CDT [facility] LYMPHOCYTES % 31.2 15.8 - 45.0 % 03/08/2025 1:15 PM CDT [facility] NEUTROPHILS % 58.5 42.1 - 71.9 % 03/08/2025 1:15 PM CDT [facility] MONOCYTES % 7.8 5.7 - 12.5 % 03/08/2025 1:15 PM CDT [facility] EOSINOPHILS 1.3 0.0 - 5.6 % 03/08/2025 1:15 PM CDT [facility] BASOPHILS 1.0 0.0 - 1.3 % 03/08/2025 1:15 PM CDT [facility] ABS. NEUTROPHILS 5.13 1.40 - 6.00 x10'3/uL 03/08/2025 1:15 PM CDT [facility] IMMATURE GRANS % 0.2 0.0 - 0.5 % 03/08/2025 1:15 PM CDT [facility] ABS. LYMPHOCYTES 2.73 0.80 - 4.70 x10'3/uL 03/08/2025 1:15 PM CDT [facility] 03/08/2025 1:10 PM CDT Hunter Martinez MD LABORATORY Final R esult Performing Organization Address City/[facility]/ZIP Co de Phone Number [facility] [address] [place] [address], [place] [phone] * TROPONIN, QUANT (03/08/2025 1:10 PM CDT) [facility] TROPONIN I HIGH SENSITIVITY 6 0 - 50 ng/L 03/08/2025 1:38 PM CDT [facility] Comment: HIGH DOSES OF BIOTIN, TROPONIN-SPECIFIC AUTOANTIBODIES, AND ANTIBODY THERAPY CONTAINING HAMA MAY INTERFERE WITH THIS TEST RESULT. CORRELATION TO CLINICAL HISTORY AND PRESENTATION RECOMMENDED. 03/08/2025 1:10 PM CDT Hunter Martinez MD LABORATORY Final R esult Performing Organization Address [facility] Co de Phone Number [facility] [address] [place] [address], [place] [phone] * (ABNORMAL) MAGNESIUM (03/08/2025 1:10 PM CDT) Pathologist [facility] MAGNESIUM 1.6(L) 1.8 - 2.4 MG/DL 03/08/2025 1:41 PM CDT [facility] 03/08/2025 1:10 PM CDT Hunter Martinez MD LABORATORY Final R esult Performing Organization Address City/[facility]/ZIP Co de Phone Number [facility] [address] [place] [address], [place] [phone] from Last 3 Months Insurance MEDICARE [facility] Care Teams Manager Agricultural Relationship Specialty Start Date End Date Nancy Jones NP [address] [facility] [place] [phone] PCP - General NURSE PRACTITIONER 03/08/25
--- OUTSIDE RECORDS SUMMARY | 2025-04-30 18:14 | XMS_ITS ---
Author Name Auto Generated, Auto Generated Organization [facility] Address [address] [place] [address] Phone [phone] Care Team Providers Care Swiss Machinist Name Role Phone Sheree Garza Unavailable [phone] Isabela Fair Unavailable [phone] Functional Status No Results Mental Status No Results Allergies and Intolerances Name Onset Date Reaction Severity No Known Allergies (Allergy) TueDec 19 15:13:00 EDT 2024 Encounters Program Name Primary Diagnosis Admission Date/Time Dis charge Date/Time Access Services Librarian Care Facility Detention-Short Term Rehabilitation Unit TueDec 19 08:00:00 EDT [...] - Use of psychotropic drug use places [place] at risk for drug-related sideeffects.* Code: * Start Date: TueDec 27 00:00:00 EDT 2024 * End Date: * Text: LSS_Psychotropic Drug Use - Use of psychotropic drug use places [place] at risk for drug-related side effects. * [...] status/behavior, vision status, continence, mobility, balance. * [facility]_Social Services- Cynthia's wishes will be followed (Advanced Directive/Code Status).* Code: * Start Date: TueDec 28 00:00:00 EDT 2024 * End Date: * Text: [facility]'s wishes will be followed (Advanced Directive/Code Status). * [facility] Marie will be involved in goal [...] 21:32:34 EDT 2024 Heart Rate 72.00 /min [place] Dec 16 21:32 :34 EDT 2024 Body [...] EDT 5 Diastolic Blood Pressure 75.00 mm[Hg] [facility] Mar 15 09:21:45 EDT 2024 Heart Rate 75.00 /min [facility] Mar 15 09:21 :45 EDT 2024 Systolic Blood Pressure 128.00 mm[Hg] [facility] Mar 15 03:23:08 EDT 2024 Diastolic Blood Pressure 72.00 mm[Hg] [facility] Mar 15 03:23:08 EDT 2024 Pulse Oximetry 100.00 % [facility] Mar 15 03:23 :08 EDT 2024 Heart Rate 76.00 /min [facility] Mar 15 03:23 :08 EDT 2024 Body temperature 97.70 [degF] [facility] Mar 15 03:2 3:08 EDT 2024 Respiratory rate 22.00 /min [facility] Mar 15 03:2 3:08 EDT 2024 Systolic [...]
--- OUTSIDE RECORDS SUMMARY | 2025-04-30 18:14 | XMS_ITS ---
Author Name Auto Generated, Auto Generated Organization [facility] Address [address] [place] [address] Phone [phone] Care Team Providers Care Corsets Salesperson Name Role Phone Sheree Garza Unavailable Isabela Fair Unavailable Functional Status No Results Mental Status No Results Allergies and Intolerances Name Onset Date Reaction Severity No Known Allergies (Allergy) TueDec 19 15:13:00 EDT 2024 Encounters Program Name Primary Diagnosis Admission Date/Time Dis charge Date/Time Long-Term Care Facility Nursing Home-Short Term Rehabilitation Unit TueDec 19 08:00:00 EDT [...] 2024 * End Date: * Text: * LSSBabsSocial ServicesKimmy Marie has impaired cognition.* Code: * Start Date: TueDec 28 00:00:00 EDT 2024 * End Date: * Text: [facility]_Social ServicesKimmy Marie has impaired cognition. * [facility]_Social Services- Cynthia will be involved in discharge planning.* Code: * Start Date: TueDec 28 00:00:00 EDT 2024 * End Date: * Text: [facility]_Social ServicesKimmy Marie will be involved in discharge planning. * LSS[facility]absSocial ServicesKimmy Marie's mobility level is different than prior level due to current medical condition.* Code: * Start Date: TueDec 28 00:00:00 EDT 2024 * End Date: * Text: [facility]_Social ServicesKimmy Marie's mobility level is different than prior level due to current medical condition. * LSSBabsSocial ServicesKimmy Marie has family/friends who are supportive.* Code: * Start Date: TueDec 28 00:00:00 EDT 2024 * End Date: * Text: [facility]_Social ServicesKimmy Marie has family/friends who are supportive. * [facility]_Social Services- Cynthia will be involved in goal development to the best of his or her ability.* Code: * Start Date: TueDec 28 00:00:00 EDT 2024 * End Date: * Text: [facility]_Social Services- Cynthia will be involved in goal development to the best of his or her ability. * [facility]_Social Services- Cynthia's wishes will be followed (Advanced Directive/Code Status).* Code: * Start Date: TueDec 28 00:00:00 EDT 2024 * End Date: * Text: [facility]_Social Services- Cynthia's wishes will be followed (Advanced Directive/Code Status). * [facility]_Falls - Cynthia is at risk for falls/injury as evidenced by: history of falls, cognitive status/behavior, vision status, continence, mobility, balance.* Code: * Start Date: TueDec 27 00:00:00 EDT 2024 * End Date: * Text: DAVID_Falls - Cynthia is at risk for falls/injury as evidenced by: history of falls, cognitive status/behavior, vision status, continence, mobility, balance. * LSS_Psychotropic Drug Use - Use of psychotropic drug use places Cynthia at risk for drug-related sideeffects.* Code: * Start Date: TueDec 27 00:00:00 EDT 2024 * End Date: * Text: LSS_Psychotropic Drug Use - Use of psychotropic drug use places Cynthia at risk for drug-related side effects. Vital Signs Vital Sign Measurement Date Systolic [...] 21:32:34 EDT 2024 Heart Rate 72.00 /min [place] Dec 16 21:32 :34 EDT 2024 Body [...] EDT 5 Diastolic Blood Pressure 75.00 mm[Hg] [facility] Mar 15 09:21:45 EDT 2024 Heart Rate 75.00 /min [facility] Mar 15 09:21 :45 EDT 2024 Systolic Blood Pressure 128.00 mm[Hg] [facility] Mar 15 03:23:08 EDT 2024 Diastolic Blood Pressure 72.00 mm[Hg] [facility] Mar 15 03:23:08 EDT 2024 Pulse Oximetry 100.00 % [facility] Mar 15 03:23 :08 EDT 2024 Heart Rate 76.00 /min [facility] Mar 15 03:23 :08 EDT 2024 Body temperature 97.70 [degF] [facility] Mar 15 03:2 3:08 EDT 2024 Respiratory rate 22.00 /min [facility] Mar 15 03:2 3:08 EDT [...]
[2025-04-30 18:32] VITALS: BP 146/81; PULSE 64; RESP 16; TEMP 36.9; O2SAT 100
== END 2025-04-30 18:43 | disposition home or self-care (01) ==
LOC: ANHED 18:12
PROVIDERS: Emergency Provider Physician Assistant
DX: S43.401A Unspecified sprain of right shoulder joint, initial encounter (principal); I10 Essential (primary) hypertension; X50.9XXA Other and unspecified overexertion or strenuous movements or postures, initial encounter
CPT/HCPCS: 73030; 99283